=== PATIENT | male | born 1980 | race Two or more races ===

== ENCOUNTER → 2021-03-14 08:40 | Outpatient (REF) | payer MEDICAID, SELFPAY ==
--- NOTE | 2021-03-14 | CA_ITS ---
Transthoracic Echocardiogram Patient (Last, First, Middle): Sanchez Roche E Gender: Male Date of : 1980 Age: 40 Procedure Date: 03/14/2021 Procedure Type: Transthoracic Echocardiogram Location: OP Height: 187.96 cm Weight: 68.49 kg BSA: 1.93 m2 Heart Rate: bpm BP: 124 / 58 mmHg Fire Control Assistant: SAHWN Referring MD: Christian Arevalo MD Symptoms: I42.2 OTHER HYPERTROPHIC CMP, LVH Conclusions: - The left ventricular systolic function is mildly decreased. The visually estimated ejection fraction is between 40-45%. There is evidence of regional wall motion abnormalities. - The entire septum is akinetic. - Normal right ventricular cavity size and systolic function. Findings Left Ventricle Normal left ventricular cavity size. There is normal left ventricular wall thickness. The left ventricular systolic function is mildly decreased. The visually estimated ejection fraction is between 40-45%. There is evidence of regional wall motion abnormalities. There is mild global hypokinesis. Abnormal diastolic function is noted. Spectral Doppler is indicative of a pseudonormal filling pattern. E/E prime ratio is <8, consistent with normal filling pressures. Wall Motion Rest Echo Findings The entire septum is akinetic. Right Ventricle Normal right ventricular cavity size and systolic function. Atria Both atria are normal in size. Aortic Valve Normal aortic valve structure and function. There is no aortic valve stenosis. There is no aortic valve regurgitation. Mitral Valve Normal mitral valve structure and function. There is no mitral valve regurgitation. There is no mitral valve stenosis. Pulmonic Valve Normal pulmonic valve structure and function. There is trace pulmonic valve regurgitation. Tricuspid Valve Normal tricuspid valve structure. There is trace tricuspid valve regurgitation. Normal right atrial pressure. There is no evidence of pulmonary hypertension. Great Vessels All visible segments of the aorta are normal in size. The visualized portions of the pulmonary artery and branches are normal. Venous The inferior vena cava is normal in size and collapses greater than 50% with inspiration. Pericardium/Pleural There is no evidence of pericardial effusion. Prior Study Comparison No prior study available for comparison. Measurements M-Mode Liner Measurements Normals - Women/Men IVSd: 1.19 0.6-0.9/0.6-1.0 cm LVIDd: 5.68 3.9-5.3/4.2-5.9 cm LVIDd Index: 2.94 1.9-3.2 cm/m2 LVIDs: 4.46 2.0-3.8 cm LVPWd: 1.27 0.6-0.9/0.6-1.0 cm LV Mass: 370.35 67-162/88-224g LV Mass Index: 191.89 43-95/49-115 g/m2 M-Mode Volumes LV EDV: 159.00 LV ESV: 90.50 2D Linear Measurements IVSd: 0.63 0.6-0.9/0.6-1.0 cm LVIDd: 5.34 3.9-5.3/4.2-5.9 cm LVIDd Index: 2.77 2.4-3.2/2.2-3.1 cm/m2 LVIDs: 4.48 2.0-3.6 cm LVPWd: 1.22 0.7-1.1 cm LA Diam: 3.40 2.7-3.8/3.0-4.0 cm LAIDs Index: 1.76 1.5-2.3 cm/m2 LV Mass: 227.39 67-162/88-224 g LV Mass Index: 117.82 43-95/49-115 g/m2 LVOT Diam: 2.20 3.0+(-)1.3 cm 2D Systolic Function EF 4C: 42.10 >55% EF 2C: 51.30 >55% EF BiP: 47.90 >55% M-Mode Systolic Function FS: 21.50 27-47/25-43% LVEF: 43.10 >55% Mitral Valve MV Pk E: 0.98 MV PK A: 0.68 MV Decel Time: 139.00 E/A: 1.40 E'Lateral: 14.60 E'Medial: 9.25 E/E' Med: 10.60 E/E' Lat: 6.70 PHT: 41.00 MVA PHT: 5.37 Decel Hanson: 7.04 Aortic Valve AoV Pk Josh: 1.59 AoV Pk Grad: 10.00 LVOT LVOT Pk Josh: 0.85 LVOT Mn Josh: 0.57 LVOT VTI: 0.16 LVOT Pk Grad: 3.00 LVOT Mn Grad: 2.00 LVOT Diam: 2.20 LVOT Area: 3.80 Diastolic Function MV Pk E: 0.98 MV Pk A: 0.68 E/A: 1.40 E'Medial: 9.25 E/E' Med: 10.60 E' Laterial: 14.60 E/E' Lat: 6.70 Right Ventricle TAPSE (mm): 1.98 Tricuspid Valve TR Pk Josh: 220.00 TR Pk Grad: 19.00 RA Press: 3.00 RVSP: 22.00 Great Vessels Aorta Ao Asc: 2.80 2.1-3.4 cm Updated in Other Vendor System with Status of Final Seyd Austin MD electronically signed on 03/14/2021 11:35:10 PM with status of Final
--- NOTE | ~2021-03-14 | XR_ITS ---
EXAMINATION: XR CHEST CLINICAL INFORMATION: Weight loss. Rule out lesion. COMPARISON: None TECHNIQUE: 2 views of the chest were obtained. FINDINGS: No significant abnormality is noted involving the heart, lungs, mediastinum, bony thorax or soft tissues. XR/XR chest 2V IMPRESSION: Unremarkable examination.
[2021-03-14 10:18] LABS: MANUAL DIFF FLAG NO
[2021-03-14 10:22] LABS: Basophils Absolute Auto 0.1 X10*3/uL (0.0-0.2); Eosinophils Absolute Auto 0.8 X10*3/uL (0.0-0.4); Eosinophils Percent Auto 7.7 % (0-4); Hematocrit 39.3 % (42-52); Hemoglobin 12.8 g/dl (14.0-18.0); Imm Gran Abs Auto 0.02 X10*3/uL (0.00-0.03); Imm Gran Pct Auto 0.2 % (0.0-0.4); Lymphocytes Absolute Auto 2.5 X10*3/uL (1.2-4.9); Lymphocytes Percent Auto 23.8 % (20-40); Mean Corpuscular HGB Conc 32.6 g/dl (31.0-36.0); Mean Corpuscular Hemoglobin 28.3 pg (27.0-33.0); Mean Corpuscular Volume 86.8 fL (80-98); Mean Platelet Volume 10.5 fL (9.4-12.4); Monocytes Absolute Auto 1.1 X10*3/uL (0.1-1.2); Monocytes Percent Auto 10.8 % (2-11); Neutrophils Absolute Auto 5.9 X10*3/uL (2.0-8.3); Neutrophils Percent Auto 56.5 % (45-73); Platelet Count 353 X10*3/uL (160-400); Red Blood Count 4.53 X10*6/uL (4.60-5.80); Red Cell Distribution Width 13.9 % (11.0-16.0); White Blood Count 10.5 X10*3/uL (4.8-10.8)
[2021-03-14 11:07] LABS: Alanine Aminotransferase 24 U/L (0-40); Albumin Level 3.8 g/dL (3.5-5.0); Alkaline Phosphatase 85 U/L (39-117); Anion Gap 8 (12-20); Aspartate Amino Transferase 22 U/L (5-37); Bilirubin Total 0.5 mg/dL (0.0-1.0); Blood Urea Nitrogen 19 mg/dL (9-16); C Reactive Protein 0.09 mg/dL (< or = 0.50); Calcium 9.6 mg/dL (8.4-10.2); Carbon Dioxide 30 mmol/L (22-29); Chloride 109 mmol/L (96-108); Estimated Glomerular Filt Rate > 60; Glucose Random 45 mg/dL (60-115); Potassium 4.2 mmol/L (3.3-5.1); Sodium 143 mmol/L (135-145); Total Protein 6.2 g/dL (6.5-8.0)
== END ==
LOC: HO.CARD 08:40
PROVIDERS: PCP Internal Medicine; Visit Provider Internal Medicine
DX: I42.2 Other hypertrophic cardiomyopathy (principal); R63.4 Abnormal weight loss; Z83.3 Family history of diabetes mellitus
CPT/HCPCS: 36415; 71046; 80053; 84443; 85025; 86140; 93306

== ENCOUNTER 2022-08-03 18:50 | Emergency (ER) | payer MEDICAID, SELFPAY ==
--- NOTE | ~2022-08-03 | XR_ITS ---
EXAMINATION: XR CHEST CLINICAL INFORMATION: Shortness of breath. COMPARISON: Chest x-ray 03/14/2021 TECHNIQUE: Frontal view of the chest was obtained. 7:51 PM FINDINGS: No significant abnormality is noted involving the heart, lungs, mediastinum, bony thorax or soft tissues. XR/XR chest 1V IMPRESSION: Unremarkable examination.
[2022-08-03 19:03] VITALS: BP 154/93; PULSE 118; RESP 16; TEMP 36.7; O2SAT 97; BMI 19.2
--- NOTE | 2022-08-03 19:05 | ECG_ITS ---
Test Reason : SOB Blood Pressure : / mmHG Vent. Rate : 103 BPM Atrial Rate : 103 BPM P-R Int : 112 ms QRS Dur : 094 ms QT Int : 406 ms P-R-T Axes : 068 052 197 degrees QTc Int : 531 ms Sinus tachycardia with Premature atrial complexes Left ventricular hypertrophy with repolarization abnormality ( Sokolow-Kennedy , [place] product ) Prolonged QT Abnormal ECG No previous ECGs available Referred By: Romaine Berry Electronically Signed By:YOLETTE IRVING MD
--- NOTE | 2022-08-03 19:08 | ED.GENADULT ---
HPI - General Adult General Chief complaint: Upper Respiratory Symptoms <ILIA Mejias - Last Filed: 08/04/22 11:32> Stated complaint: Sob <ILIA Mejias - Last Filed: 08/04/22 11:32> Time Seen by Provider: 08/03/22 20:28 <ILIA Mejias - Last Filed: 08/04/22 11:32> Source: patient <Carlie Arroyo CNP - Last Filed: 08/04/22 01:12> Mode of arrival: ambulatory <Carlie Arroyo CNP - Last Filed: 08/04/22 01:12> Limitations: no limitations <Carlie Arroyo CNP - Last Filed: 08/04/22 01:12> Related Data Allergies/adverse reactions: Allergies Allergy/AdvReac Type Severity Reaction Status Date / Time No Known Allergies Allergy Unverified 04/04/20 17:11 [No Known Allergies*] <ILIA Mejias - Last Filed: 08/04/22 11:32> [facility] Social History Social History: Social History Alcohol intake: never Smoked in Last 30 Days: Yes Use of substances other than those prescribed or required for medical reasons: Yes Substance Use Type: Marijuana Substance Use Frequency: Occasionally Advance Directives: No Advance Directives Information Provided: No <ILIA Mejias - Last Filed: 08/04/22 11:32> Physical Exam ED Vital Signs: Vital Signs - 24 hr 08/03/22 19:03 08/03/22 20:27 08/03/22 20:42 Temperature 98.1 F 98.3 F Pulse Rate 118 H 102 H Respiratory Rate 16 16 Blood Pressure 154/93 H 123/73 Pulse Oximetry 97 96 95 Oxygen Delivery Method Room Air Room Air Room Air BMI result Body Mass Index 19.2 <ILIA Mjeias - Last Filed: 08/04/22 11:32> Vital Signs - 24 hr 08/03/22 19:03 08/03/22 20:27 08/03/22 20:42 Temperature 98.1 F 98.3 F Pulse Rate 118 H 102 H Respiratory Rate 16 16 Blood Pressure 154/93 H 123/73 Pulse Oximetry 97 96 95 Oxygen Delivery Method Room Air Room Air Room Air BMI result Body Mass Index 19.2 <Carlie Arroyo CNP - Last Filed: 08/04/22 01:12> Course Course Course Narrative: RME: 41 yold male presents to the ED for SOB for one year and lateley not able to stay asleep for long with due to episode of SOB. labs and EKG ordered. Chest xray ordered <ILIA Mejias - Last Filed: 08/04/22 11:32> Reevaluation(s) Reevaluation #1: CBC reveals no leukocytosis, a normocytic anemia which appears consistent with baseline not needing transfusion criteria. CMP revealing ISABELLA with BUN 21, creatinine 1.47. Troponin 66.3, EKG revealing sinus tachycardia with PAC, left ventricular hypertrophy; ventricular rate 103, QT prolongation 531, ST depression in I/ V5/ V6 with J-point elevation in V1-V2. chest x-ray without acute cardiopulmonary process. elevated BNP 788. influenza, RSV, COVID- 19 are negative. Upon attempting re-evaluation, patient not present in room, advised by nursing staff that he had eloped. <Carlie Arroyo CNP - Last Filed: 08/04/22 01:12> Time: 21:55 <Carlie Arroyo CNP - Last Filed: 08/04/22 01:12> Medical Decision Making Lab Data MDM Lab Attestation statement: I reviewed the patient's lab results. <Carlie Arroyo CNP - Last Filed: 08/04/22 01:12> Result Diagrams: 08/03/22 20:36 08/03/22 20:36 <ILIA Mejias - Last Filed: 08/04/22 11:32> Labs: Lab Results 08/03/22 08/03/22 08/03/22 Range/Units 20:36 20:36 20:36 WBC 8.4 (4.8-10.8) X10*3/uL RBC 4.59 L (4.60-5.80) X10*6/uL Hgb 12.7 L (14.0-18.0) g/dl Hct 39.2 L (42.0-52.0) % MCV 85.4 (80.0-98.0) fL MCH 27.7 (27.0-33.0) pg MCHC 32.4 (31.0-36.0) g/dl RDW 14.1 (11.0-16.0) % Plt Count 407 H (160-400) X10*3/uL MPV 9.7 (9.4-12.4) fL Immature Gran % (Auto) 0.2 (0.0-0.4) % Neut % (Auto) 59.9 (45-73) % Lymph % (Auto) 26.7 (20-40) % [place] % (Auto) 9.7 (2-11) % Eos % (Auto) 2.1 (0-4) % Baso % (Auto) 1.4 (0-2) % Lymph # (Auto) 2.2 (1.2-4.9) X10*3/uL [place] # (Auto) 0.8 (0.1-1.2) X10*3/uL Eos # (Auto) 0.2 (0.0-0.4) X10*3/uL Baso # (Auto) 0.1 (0.0-0.2) X10*3/uL Abs Immat Gran (auto) 0.02 (0.00-0.03) X10*3/uL Absolute Neuts (auto) 5.0 (2.0-8.3) x10*3/uL Absolute Nucleated RBC 0.000 (0.0-0.012) X10*3/uL Nucleated RBC % (auto) 0.0 (0.0-0.2) /100WBC PT 12.9 (10.0-13.1) SEC INR 1.1 (0.9-1.1) APTT 36.6 H (26.0-36.4) SEC Sodium 139 (135-145) mmol/L Potassium 4.9 (3.3-5.1) mmol/L Chloride 112 H (96-108) mmol/L Carbon Dioxide 25 (22-29) mmol/L Anion Gap 7 L (12-20) BUN 21 H (9-16) mg/dL Creatinine 1.47 H (0.5-1.4) mg/dL Estim Creat Clear Calc 62.3 Estimated GFR 52 Random Glucose 100 (60-115) mg/dL Calcium 9.1 (8.4-10.2) mg/dL Total Bilirubin 0.8 (0.0-1.0) mg/dL AST 27 (5-37) U/L ALT 19 (0-40) U/L Alkaline Phosphatase 81 (39-117) U/L Troponin I High Sens (<3.5-35.0) ng/L B-Natriuretic Peptide (<100) pg/mL Total Protein 6.0 L (6.5-8.0) g/dL Albumin 3.5 (3.5-5.0) g/dL Influenza Type A (PCR) (Negative) Influenza Type B (PCR) (Negative) RSV RNA Qual (PCR) (Negative) SARS-CoV-2 RNA (RT-PCR) (Negative) 08/03/22 08/03/22 08/03/22 Range/Units 20:36 20:36 20:36 WBC (4.8-10.8) X10*3/uL RBC (4.60-5.80) X10*6/uL Hgb (14.0-18.0) g/dl Hct (42.0-52.0) % MCV (80.0-98.0) fL MCH (27.0-33.0) pg MCHC (31.0-36.0) g/dl RDW (11.0-16.0) % Plt Count (160-400) X10*3/uL MPV (9.4-12.4) fL Immature Gran % (Auto) (0.0-0.4) % Neut % (Auto) (45-73) % Lymph % (Auto) (20-40) % [place] % (Auto) (2-11) % Eos % (Auto) (0-4) % Baso % (Auto) (0-2) % Lymph # (Auto) (1.2-4.9) X10*3/uL [place] # (Auto) (0.1-1.2) X10*3/uL Eos # (Auto) (0.0-0.4) X10*3/uL Baso # (Auto) (0.0-0.2) X10*3/uL Abs Immat Gran (auto) (0.00-0.03) X10*3/uL Absolute Neuts (auto) (2.0-8.3) x10*3/uL Absolute Nucleated RBC (0.0-0.012) X10*3/uL Nucleated RBC % (auto) (0.0-0.2) /100WBC PT (10.0-13.1) SEC INR (0.9-1.1) APTT (26.0-36.4) SEC Sodium (135-145) mmol/L Potassium (3.3-5.1) mmol/L Chloride (96-108) mmol/L Carbon Dioxide (22-29) mmol/L Anion Gap (12-20) BUN (9-16) mg/dL Creatinine (0.5-1.4) mg/dL Estim Creat Clear Calc Estimated GFR Random Glucose (60-115) mg/dL Calcium (8.4-10.2) mg/dL Total Bilirubin (0.0-1.0) mg/dL AST (5-37) U/L ALT (0-40) U/L Alkaline Phosphatase (39-117) U/L Troponin I High Sens 66.3 H (<3.5-35.0) ng/L B-Natriuretic Peptide 788 H (<100) pg/mL Total Protein (6.5-8.0) g/dL Albumin (3.5-5.0) g/dL Influenza Type A (PCR) NEGATIVE (Negative) Influenza Type B (PCR) NEGATIVE (Negative) RSV RNA Qual (PCR) NEGATIVE (Negative) SARS-CoV-2 RNA (RT-PCR) NEGATIVE (Negative) <ILIA Mejias - Last Filed: 08/04/22 11:32> Lab Results 08/03/22 08/03/22 08/03/22 Range/Units 20:36 20:36 20:36 WBC 8.4 (4.8-10.8) X10*3/uL RBC 4.59 L (4.60-5.80) X10*6/uL Hgb 12.7 L (14.0-18.0) g/dl Hct 39.2 L (42.0-52.0) % MCV 85.4 (80.0-98.0) fL MCH 27.7 (27.0-33.0) pg MCHC 32.4 (31.0-36.0) g/dl RDW 14.1 (11.0-16.0) % Plt Count 407 H (160-400) X10*3/uL MPV 9.7 (9.4-12.4) fL Immature Gran % (Auto) 0.2 (0.0-0.4) % Neut % (Auto) 59.9 (45-73) % Lymph % (Auto) 26.7 (20-40) % [place] % (Auto) 9.7 (2-11) % Eos % (Auto) 2.1 (0-4) % Baso % (Auto) 1.4 (0-2) % Lymph # (Auto) 2.2 (1.2-4.9) X10*3/uL [place] # (Auto) 0.8 (0.1-1.2) X10*3/uL Eos # (Auto) 0.2 (0.0-0.4) X10*3/uL Baso # (Auto) 0.1 (0.0-0.2) X10*3/uL Abs Immat Gran (auto) 0.02 (0.00-0.03) X10*3/uL Absolute Neuts (auto) 5.0 (2.0-8.3) x10*3/uL Absolute Nucleated RBC 0.000 (0.0-0.012) X10*3/uL Nucleated RBC % (auto) 0.0 (0.0-0.2) /100WBC PT 12.9 (10.0-13.1) SEC INR 1.1 (0.9-1.1) APTT 36.6 H (26.0-36.4) SEC Sodium 139 (135-145) mmol/L Potassium 4.9 (3.3-5.1) mmol/L Chloride 112 H (96-108) mmol/L Carbon Dioxide 25 (22-29) mmol/L Anion Gap 7 L (12-20) BUN 21 H (9-16) mg/dL Creatinine 1.47 H (0.5-1.4) mg/dL Estim Creat Clear Calc 62.3 Estimated GFR 52 Random Glucose 100 (60-115) mg/dL Calcium 9.1 (8.4-10.2) mg/dL Total Bilirubin 0.8 (0.0-1.0) mg/dL AST 27 (5-37) U/L ALT 19 (0-40) U/L Alkaline Phosphatase 81 (39-117) U/L Troponin I High Sens (<3.5-35.0) ng/L B-Natriuretic Peptide (<100) pg/mL Total Protein 6.0 L (6.5-8.0) g/dL Albumin 3.5 (3.5-5.0) g/dL Influenza Type A (PCR) (Negative) Influenza Type B (PCR) (Negative) RSV RNA Qual (PCR) (Negative) SARS-CoV-2 RNA (RT-PCR) (Negative) 08/03/22 08/03/22 08/03/22 Range/Units 20:36 20:36 20:36 WBC (4.8-10.8) X10*3/uL RBC (4.60-5.80) X10*6/uL Hgb (14.0-18.0) g/dl Hct (42.0-52.0) % MCV (80.0-98.0) fL MCH (27.0-33.0) pg MCHC (31.0-36.0) g/dl RDW (11.0-16.0) % Plt Count (160-400) X10*3/uL MPV (9.4-12.4) fL Immature Gran % (Auto) (0.0-0.4) % Neut % (Auto) (45-73) % Lymph % (Auto) (20-40) % [place] % (Auto) (2-11) % Eos % (Auto) (0-4) % Baso % (Auto) (0-2) % Lymph # (Auto) (1.2-4.9) X10*3/uL [place] # (Auto) (0.1-1.2) X10*3/uL Eos # (Auto) (0.0-0.4) X10*3/uL Baso # (Auto) (0.0-0.2) X10*3/uL Abs Immat Gran (auto) (0.00-0.03) X10*3/uL Absolute Neuts (auto) (2.0-8.3) x10*3/uL Absolute Nucleated RBC (0.0-0.012) X10*3/uL Nucleated RBC % (auto) (0.0-0.2) /100WBC PT (10.0-13.1) SEC INR (0.9-1.1) APTT (26.0-36.4) SEC Sodium (135-145) mmol/L Potassium (3.3-5.1) mmol/L Chloride (96-108) mmol/L Carbon Dioxide (22-29) mmol/L Anion Gap (12-20) BUN (9-16) mg/dL Creatinine (0.5-1.4) mg/dL Estim Creat Clear Calc Estimated GFR Random Glucose (60-115) mg/dL Calcium (8.4-10.2) mg/dL Total Bilirubin (0.0-1.0) mg/dL AST (5-37) U/L ALT (0-40) U/L Alkaline Phosphatase (39-117) U/L Troponin I High Sens 66.3 H (<3.5-35.0) ng/L B-Natriuretic Peptide 788 H (<100) pg/mL Total Protein (6.5-8.0) g/dL Albumin (3.5-5.0) g/dL Influenza Type A (PCR) NEGATIVE (Negative) Influenza Type B (PCR) NEGATIVE (Negative) RSV RNA Qual (PCR) NEGATIVE (Negative) SARS-CoV-2 RNA (RT-PCR) NEGATIVE (Negative) <Carlie Arroyo CNP - Last Filed: 08/04/22 01:12> Independent Interpretation I performed an independent interpretation of an: EKG ( as noted in course) and Plain X-Ray ( have personally interpreted chest x-ray and agree with radiologist impression) <Carlie Arroyo CNP - Last Filed: 08/04/22 01:12> Radiology Impression Discussion of test interpretation with radiology: I have reviewed the radiologist's reading. <Carlie Arroyo CNP - Last Filed: 08/04/22 01:12> Radiologist Impression: XR/XR chest 1V IMPRESSION: Unremarkable examination. <Carlie Arroyo CNP - Last Filed: 08/04/22 01:12> Discharge Plan Discharge Clinical Impression: Shortness of breath <ILIA Mejias - Last Filed: 08/04/22 11:32> Patient Disposition: Elopement <ILIA Mejias - Last Filed: 08/04/22 11:32> Discharge Date/Time: 08/03/22 22:02 <ILIA Mejias - Last Filed: 08/04/22 11:32>
[2022-08-03 20:27] VITALS: BP 123/73; PULSE 102; RESP 16; TEMP 36.8; O2SAT 96
--- NOTE | 2022-08-03 20:40 | PC.NURSE ---
This writter assumed care of this PT at 2030. PT A&Ox4, denies any pain, CP, N/V/D, headache or dizziness. Reports worsening increase SOB since last week, worse when lying down. LS diminished, 96% on RA. VSS. Blood work collected and sent to lab.
[2022-08-03 20:42] VITALS: O2SAT 95
[2022-08-03 20:43] LABS: MANUAL DIFF FLAG NO
[2022-08-03 20:47] LABS: Basophils Absolute Auto 0.1 X10*3/uL (0.0-0.2); Basophils Percent Auto 1.4 % (0-2); Eosinophils Absolute Auto 0.2 X10*3/uL (0.0-0.4); Eosinophils Percent Auto 2.1 % (0-4); Hematocrit 39.2 % (42.0-52.0); Hemoglobin 12.7 g/dl (14.0-18.0); Imm Gran Abs Auto 0.02 X10*3/uL (0.00-0.03); Imm Gran Pct Auto 0.2 % (0.0-0.4); Lymphocytes Absolute Auto 2.2 X10*3/uL (1.2-4.9); Lymphocytes Percent Auto 26.7 % (20-40); Mean Corpuscular HGB Conc 32.4 g/dl (31.0-36.0); Mean Corpuscular Hemoglobin 27.7 pg (27.0-33.0); Mean Corpuscular Volume 85.4 fL (80.0-98.0); Mean Platelet Volume 9.7 fL (9.4-12.4); Monocytes Absolute Auto 0.8 X10*3/uL (0.1-1.2); Monocytes Percent Auto 9.7 % (2-11); Neutrophils Percent Auto 59.9 % (45-73); Platelet Count 407 X10*3/uL (160-400); Red Blood Count 4.59 X10*6/uL (4.60-5.80); Red Cell Distribution Width 14.1 % (11.0-16.0); White Blood Count 8.4 X10*3/uL (4.8-10.8)
[2022-08-03 20:52] LABS: INTERNATIONAL NORM RATIO 1.1 (0.9-1.1); Prothrombin Time 12.9 SEC (10.0-13.1)
[2022-08-03 20:55] LABS: Partial Thromboplastin Time 36.6 SEC (26.0-36.4)
[2022-08-03 21:02] LABS: Alanine Aminotransferase 19 U/L (0-40); Albumin Level 3.5 g/dL (3.5-5.0); Alkaline Phosphatase 81 U/L (39-117); Anion Gap 7 (12-20); Aspartate Amino Transferase 27 U/L (5-37); Bilirubin Total 0.8 mg/dL (0.0-1.0); Blood Urea Nitrogen 21 mg/dL (9-16); Calcium 9.1 mg/dL (8.4-10.2); Carbon Dioxide 25 mmol/L (22-29); Chloride 112 mmol/L (96-108); Creatinine Clr Calc Pharmacy 62.3; Estimated Glomerular Filt Rate 52; Glucose Random 100 mg/dL (60-115); Potassium 4.9 mmol/L (3.3-5.1); Sodium 139 mmol/L (135-145)
[2022-08-03 21:06] LABS: B Type Natriuretic Peptide 788 pg/mL (<100)
[2022-08-03 21:09] LABS: Troponin-I High Sensitivity 66.3 ng/L (<3.5-35.0)
[2022-08-03 21:23] LABS: Influenza A PCR NEGATIVE (Negative); Influenza B PCR NEGATIVE (Negative); Resp Syncy Virus RNA Qual PCR NEGATIVE (Negative); SARS COV2 PCR INHOUSE NEGATIVE (Negative)
--- NOTE | 2022-08-03 22:01 | PC.NURSE ---
PT reported he wants to leave. Provider notified. PT updated to stay till provider went in to see him, PT agreed. Stated he was going to the BR and did not return to room.
== END 2022-08-03 22:02 | disposition left against medical advice (07) ==
PROVIDERS: Physician Assistant; Emergency Provider Emergency Medicine Emergency Medical Services; PCP Internal Medicine
DX: R06.02 Shortness of breath (principal); F12.90 Cannabis use, unspecified, uncomplicated; Z20.822 Contact with and (suspected) exposure to COVID-19; Z20.828 Contact with and (suspected) exposure to other viral communicable diseases
CPT/HCPCS: 0241U; 71045; 80053; 83880; 84484; 85025; 85610; 85730; 93005; 99283; 99285

== ENCOUNTER 2022-08-11 12:40 | Outpatient (REF) | payer MEDICAID, SELFPAY ==
--- NOTE | ~2022-08-11 | XR_ITS ---
EXAMINATION: XR CHEST CLINICAL INFORMATION: Cough, shortness of breath COMPARISON: X-ray 08/03/2022 TECHNIQUE: 2 views of the chest were obtained. FINDINGS: Cardiomediastinal silhouette is within normal limits. There is multifocal airspace opacities in the right upper, mid and lower lung. There is multifocal hazy opacifications in the left mid/upper lung. Findings are new as compared to previous. Central vasculature is stable as compared to previous. No effusion. No pneumothorax. XR/XR chest 2V IMPRESSION: Multifocal airspace opacities in the right lung. Multifocal hazy opacities in left mid/upper lung. Findings are concerning for an infectious or inflammatory process. Recommendation is for a follow-up chest series to be obtained following treatment and/or resolution of symptoms to assure resolution of this appearance.
[2022-08-11 14:15] LABS: Basophils Absolute Auto 0.1 X10*3/uL (0.0-0.2); Basophils Percent Auto 0.8 % (0-2); Eosinophils Absolute Auto 0.2 X10*3/uL (0.0-0.4); Eosinophils Percent Auto 1.4 % (0-4); Imm Gran Abs Auto 0.09 X10*3/uL (0.00-0.03); Imm Gran Pct Auto 0.5 % (0.0-0.4); Lymphocytes Absolute Auto 1.8 X10*3/uL (1.2-4.9); Lymphocytes Percent Auto 10.7 % (20-40); MANUAL DIFF FLAG SCAN; Mean Corpuscular HGB Conc 31.7 g/dl (31.0-36.0); Mean Corpuscular Hemoglobin 27.5 pg (27.0-33.0); Mean Corpuscular Volume 86.9 fL (80.0-98.0); Mean Platelet Volume 10.7 fL (9.4-12.4); Monocytes Absolute Auto 1.8 X10*3/uL (0.1-1.2); Monocytes Percent Auto 10.3 % (2-11); Neutrophils Percent Auto 76.3 % (45-73); Platelet Count 493 X10*3/uL (160-400); Red Blood Count 4.72 X10*6/uL (4.60-5.80); Red Cell Distribution Width 13.9 % (11.0-16.0); SCAN SMEAR FLAG 1
[2022-08-11 14:24] LABS: D Dimer High Sensitivity 441 NG/ML
[2022-08-11 14:39] LABS: Influenza A PCR NEGATIVE (Negative); Influenza B PCR NEGATIVE (Negative); Resp Syncy Virus RNA Qual PCR NEGATIVE (Negative); SARS COV2 PCR INHOUSE NEGATIVE (Negative)
[2022-08-11 14:59] LABS: B Type Natriuretic Peptide 486 pg/mL (<100)
[2022-08-11 16:03] LABS: SLIDE REVIEW VERIFIED
[2022-08-11 16:07] LABS: Alanine Aminotransferase 12 U/L (0-40); Albumin Level 3.5 g/dL (3.5-5.0); Alkaline Phosphatase 93 U/L (39-117); Anion Gap 14 (12-20); Aspartate Amino Transferase 19 U/L (5-37); Bilirubin Total 0.4 mg/dL (0.0-1.0); Blood Urea Nitrogen 18 mg/dL (9-16); C Reactive Protein 1.64 mg/dL (< or = 0.50); Calcium 9.2 mg/dL (8.4-10.2); Carbon Dioxide 24 mmol/L (22-29); Chloride 106 mmol/L (96-108); Estimated Glomerular Filt Rate > 60; Glucose Fasting 94 mg/dL (60-99); Potassium 4.8 mmol/L (3.3-5.1); Sodium 139 mmol/L (135-145); Total Protein 6.2 g/dL (6.5-8.0)
== END 2022-08-11 12:41 | disposition home or self-care (01) ==
LOC: HO.10HDL 12:40
PROVIDERS: Visit Provider Internal Medicine
DX: R53.83 Other fatigue (principal); R06.02 Shortness of breath; R05.9 Cough, unspecified
CPT/HCPCS: 0241U; 71046; 80053; 83880; 84484; 85025; 85379; 86140

== ENCOUNTER 2022-10-13 17:20 | Outpatient (REF) | payer MEDICAID, SELFPAY ==
--- NOTE | ~2022-10-13 | XR_ITS ---
EXAMINATION: XR CHEST CLINICAL INFORMATION: Shortness of breath COMPARISON: Chest radiographs 08/11/2022, 08/03/2022, 03/14/2021 TECHNIQUE: 2 views of the chest were obtained. FINDINGS: There is interval enlarged cardiopericardial silhouette. Cardiothoracic ratio is 18.8/31.0. There are small bibasilar effusions blunting the costophrenic sulci. The pulmonary vascularity is within normal. There is no lobar or segmental airspace consolidation or groundglass opacity or air bronchograms. The hilar and mediastinal contours and bony structures are unremarkable. XR/XR chest 2V IMPRESSION: -Interval enlarged cardiopericardial silhouette. Small bibasilar effusions. -No airspace consolidation or groundglass opacity.
[2022-10-13 17:32] LABS: MANUAL DIFF FLAG NO
[2022-10-13 18:21] LABS: Basophils Absolute Auto 0.1 X10*3/uL (0.0-0.2); Basophils Percent Auto 0.8 % (0-2); Eosinophils Percent Auto 0.1 % (0-4); Hematocrit 48.6 % (42.0-52.0); Hemoglobin 15.5 g/dl (14.0-18.0); Imm Gran Abs Auto 0.04 X10*3/uL (0.00-0.03); Imm Gran Pct Auto 0.4 % (0.0-0.4); Lymphocytes Absolute Auto 2.6 X10*3/uL (1.2-4.9); Lymphocytes Percent Auto 24.3 % (20-40); Mean Corpuscular HGB Conc 31.9 g/dl (31.0-36.0); Mean Corpuscular Hemoglobin 27.7 pg (27.0-33.0); Mean Corpuscular Volume 86.8 fL (80.0-98.0); Mean Platelet Volume 10.4 fL (9.4-12.4); Monocytes Absolute Auto 0.9 X10*3/uL (0.1-1.2); Monocytes Percent Auto 8.4 % (2-11); Platelet Count 444 X10*3/uL (160-400); Red Cell Distribution Width 14.4 % (11.0-16.0); White Blood Count 10.6 X10*3/uL (4.8-10.8)
[2022-10-13 18:57] LABS: Erythrocyte Sedimentation Rate 1 MM/HR (0-15)
[2022-10-13 19:03] LABS: B Type Natriuretic Peptide 3120 pg/mL (<100)
[2022-10-13 19:06] LABS: Alanine Aminotransferase 50 U/L (0-40); Albumin Level 3.2 g/dL (3.5-5.0); Alkaline Phosphatase 89 U/L (39-117); Anion Gap 19 (12-20); Aspartate Amino Transferase 46 U/L (5-37); Bilirubin Total 1.5 mg/dL (0.0-1.0); Blood Urea Nitrogen 27 mg/dL (9-16); Calcium 9.3 mg/dL (8.4-10.2); Carbon Dioxide 21 mmol/L (22-29); Chloride 105 mmol/L (96-108); Estimated Glomerular Filt Rate 45; Glucose Random 146 mg/dL (60-115); Potassium 4.9 mmol/L (3.3-5.1); Sodium 140 mmol/L (135-145); Total Protein 5.5 g/dL (6.5-8.0)
== END 2022-10-13 17:21 | disposition home or self-care (01) ==
LOC: HO.LAB 17:20
PROVIDERS: PCP Internal Medicine; Visit Provider Internal Medicine
DX: R06.02 Shortness of breath (principal); I42.9 Cardiomyopathy, unspecified
CPT/HCPCS: 36415; 71046; 80053; 83880; 85025; 85652

== ENCOUNTER 2022-10-14 13:55 | Inpatient (IN) | payer MEDICAID, SELFPAY ==
--- NOTE | 2022-10-14 13:58 | ECG_ITS ---
Test Reason : cp Blood Pressure : / mmHG Vent. Rate : 111 BPM Atrial Rate : 111 BPM P-R Int : 126 ms QRS Dur : 094 ms QT Int : 372 ms P-R-T Axes : 070 060 049 degrees QTc Int : 505 ms Sinus tachycardia Possible Left atrial enlargement Minimal voltage criteria for LVH, may be normal variant ( [place] product ) Nonspecific T wave abnormality Abnormal ECG When compared with ECG of 03-AUG-2022 20:19, No significant changes seen Referred By: Mona Villanueva Electronically Signed By:FELIX LUIS
--- NOTE | 2022-10-14 13:59 | ED.SOB ---
HPI - SOB/Dyspnea General Stated Complaint: Heart issue told to come in by PCP Related Data Allergies Allergy/AdvReac Type Severity Reaction Status Date / Time No Known Allergies Allergy Verified 10/14/22 14:00 [No Known Allergies*] [facility] Social History Social History Alcohol intake: never Substance Use Type: Marijuana Course Course Course Narrative: RME - 42 yo male currently on no medications with history of CHF (EF 40-45% in 2020) who presents to the ER from home for abnormal labs. Dr. Lux did basic labs last night that showed a BNP 3120. Patient reports PND, orthopnea and MCWILLIAMS, worsening over the last 2 months. Also had increased abd distention and fullness yesterday. Tachycardic 117 in triage. dyspneic with minimal exertion. No chest pain. Plan: repeat labs, EKG, CXR. will require admission
[2022-10-14 14:00] VITALS: BP 119/78; PULSE 116; RESP 20; TEMP 36.6; O2SAT 99; BMI 19.2
[2022-10-14 14:26] LABS: MANUAL DIFF FLAG NO
[2022-10-14 14:29] LABS: Basophils Absolute Auto 0.1 X10*3/uL (0.0-0.2); Basophils Percent Auto 1.1 % (0-2); Eosinophils Percent Auto 0.1 % (0-4); Hematocrit 48.5 % (42.0-52.0); Hemoglobin 16.1 g/dl (14.0-18.0); Imm Gran Abs Auto 0.04 X10*3/uL (0.00-0.03); Imm Gran Pct Auto 0.4 % (0.0-0.4); Lymphocytes Absolute Auto 2.3 X10*3/uL (1.2-4.9); Lymphocytes Percent Auto 23.7 % (20-40); Mean Corpuscular HGB Conc 33.2 g/dl (31.0-36.0); Mean Corpuscular Hemoglobin 27.6 pg (27.0-33.0); Mean Platelet Volume 9.9 fL (9.4-12.4); Monocytes Absolute Auto 0.9 X10*3/uL (0.1-1.2); Monocytes Percent Auto 9.5 % (2-11); Neutrophils Absolute Auto 6.4 x10*3/uL (2.0-8.3); Neutrophils Percent Auto 65.2 % (45-73); Platelet Count 418 X10*3/uL (160-400); Red Blood Count 5.84 X10*6/uL (4.60-5.80); Red Cell Distribution Width 14.4 % (11.0-16.0); White Blood Count 9.8 X10*3/uL (4.8-10.8)
[2022-10-14 14:41] LABS: COVID-19 Test Negative (Negative); IDNOW Serial# BCCEAD1C; Lactic Acid 1.4 mmol/L (0.5-2.0)
[2022-10-14 14:46] LABS: Alanine Aminotransferase 118 U/L (0-40); Albumin Level 3.3 g/dL (3.5-5.0); Alkaline Phosphatase 102 U/L (39-117); Anion Gap 15 (12-20); Aspartate Amino Transferase 130 U/L (5-37); Bilirubin Direct 0.6 mg/dL (0.0-0.5); Bilirubin Total 2.2 mg/dL (0.0-1.0); Blood Urea Nitrogen 27 mg/dL (9-16); Calcium 9.3 mg/dL (8.4-10.2); Carbon Dioxide 23 mmol/L (22-29); Chloride 106 mmol/L (96-108); Creatinine Clr Calc Pharmacy 53.9; Estimated Glomerular Filt Rate 45; Glucose Random 114 mg/dL (60-115); Magnesium 1.9 mg/dL (1.6-2.6); Sodium 139 mmol/L (135-145); Total Protein 5.7 g/dL (6.5-8.0)
[2022-10-14 14:50] LABS: B Type Natriuretic Peptide 3247 pg/mL (<100)
--- NOTE | 2022-10-14 14:50 | CA_ITS ---
Transthoracic Echocardiogram Patient (Last, First, Middle): Sanchez Roche E Gender: Male Date of : 1980 Age: 42 Procedure Date: 10/14/2022 Procedure Type: Transthoracic Echocardiogram Location: ER Height: 187.96 cm Weight: 68.04 kg BSA: 1.92 m2 Heart Rate: 113 bpm BP: 134 / 104 mmHg [employer] Supervisor: SB Referring MD: Jasper Mariano MD Symptoms: chf vs pericardial effusion Study Quality: Adequate ECG Rhythm: Tachycardia Conclusions: - The left ventricular systolic function is severely decreased. The visually estimated ejection fraction is <10%. - There is severely decreased right ventricular systolic function. - There is moderate mitral valve regurgitation. - There is mild to moderate tricuspid valve regurgitation. - Moderate pulmonary hypertension is present. Findings Left Ventricle Moderately increased left ventricular cavity size. There is mildly increased left ventricular wall thickness. The left ventricular systolic function is severely decreased. The visually estimated ejection fraction is <10%. There is severe global hypokinesis. Evidence suggests grade III (severe) diastolic dysfunction. Right Ventricle Moderately increased right ventricular cavity size. There is severely decreased right ventricular systolic function. Atria The left atrium is severely dilated. The right atrium is moderately dilated. Aortic Valve The aortic valve was not well visualized. There is no aortic valve stenosis. There is no aortic valve regurgitation. Mitral Valve The mitral valve appears normal. There is moderate mitral valve regurgitation. There is no mitral valve stenosis. Pulmonic Valve The pulmonic valve is likely normal. Tricuspid Valve Normal tricuspid valve structure. There is mild to moderate tricuspid valve regurgitation. The right ventricular systolic pressure is 55 mmHg. Moderate pulmonary hypertension is present. Great Vessels The asc aorta is normal in size. Venous The inferior vena cava is dilated and does not collapse with inspiration. Pericardium/Pleural There is a small circumferential pericardial effusion. Prior Study Comparison Changes noted compared to prior study dated: 03/14/2021. LVEF is worse. Measurements 2D Linear Measurements IVSd: 0.72 0.6-0.9/0.6-1.0 cm LVIDd: 6.22 3.9-5.3/4.2-5.9 cm LVIDd Index: 3.24 2.4-3.2/2.2-3.1 cm/m2 LVIDs: 5.55 2.0-3.6 cm LVPWd: 1.19 0.7-1.1 cm LA Diam: 4.20 2.7-3.8/3.0-4.0 cm LAIDs Index: 2.19 1.5-2.3 cm/m2 LV Mass: 308.59 67-162/88-224 g LV Mass Index: 160.73 43-95/49-115 g/m2 LVOT Diam: 2.10 3.0+(-)1.3 cm 2D Systolic Function EF 4C: 1.99 >55% EF 2C: 8.76 >55% EF BiP: 5.24 >55% Mitral Valve MV Pk E: 1.11 MV Decel Time: 137.00 E'Lateral: 3.75 E'Medial: 2.56 E/E' Med: 43.40 E/E' Lat: 29.60 PHT: 49.00 MVA PHT: 4.49 Decel Noble: 6.60 MR Vol - PW Dopp: 11.44 MR VTI: 1.43 MR ERO: 8.00 MR Alias Josh: 0.39 MR RAD: 0.40 Aortic Valve AoV Pk Josh: 0.67 AoV Pk Grad: 2.00 IRINA: 3.09 LVOT LVOT Pk Josh: 0.48 LVOT Mn Josh: 0.34 LVOT VTI: 0.06 LVOT Pk Grad: 1.00 LVOT Mn Grad: 1.00 LVOT Diam: 2.10 LVOT Area: 3.46 Diastolic Function MV Pk E: 1.11 E'Medial: 2.56 E/E' Med: 43.40 E' Laterial: 3.75 E/E' Lat: 29.60 Right Ventricle TAPSE (mm): 7.80 TVS' Johs: 6.50 Tricuspid Valve TR Pk Josh: 3.17 TR Pk Grad: 40.00 RA Press: 15.00 RVSP: 55.00 Great Vessels Aorta Sinus of Valsalva: 3.40 2.0-3.5 cm Ao Asc: 2.90 2.1-3.4 cm Pulmonary Valve PV Pk Josh: 0.40 Peak PV Grad: 1.00 Updated in Other Vendor System with Status of Final Shar Elizabeth MD electronically signed on 10/14/2022 4:04:31 PM with status of Final
[2022-10-14 14:53] LABS: Troponin-I High Sensitivity 66.5 ng/L (<3.5-35.0)
--- NOTE | 2022-10-14 14:54 | ED_ITS ---
HPI - General Adult General Chief complaint: General Medical Stated complaint: Heart issue told to come in by PCP Time Seen by Provider: 10/14/22 14:37 Source: patient and old records reviewed History of Present Illness HPI narrative: Patient with a history of hypertensive cardiomyopathy with an ejection reason in , presents with worsening dyspnea. He states over the past month and a half he has been having worsening orthopnea. He has been sleeping upright a today went to see his PCP who ordered and BNP was over 3000. His PCP recommended he come to the emergency department. He denies any chest pain during any of this. No nausea vomiting. Seen in July for a respite syndrome and was diagnosed with pneumonia. He states he was treated with medication and improved he then developed the above- mentioned symptoms. He states he has had bilateral pedal edema for the last several months but that has suddenly improved over the past 2 days without intervention. He does not take any medications. 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 Related Data Home Medications Medication Instructions Recorded Confirmed No Known Home Meds 10/14/22 10/14/22 Allergies Allergy/AdvReac Type Severity Reaction Status Date / Time No Known Allergies Allergy Verified 10/14/22 14:00 [No Known Allergies*] Review of Systems Constitutional: Comments: No fevers or chills Cardiovascular: Comments: No chest pain or palpitations. Positive orthopnea and PND Respiratory: Comments: Dyspnea as mentioned. No cough or sputum Gastrointestinal: Comments: No abdominal symptoms Musculoskeletal: Comments: Bilateral pedal edema as mentioned, recently improved spontaneously Integumentary/Breasts: Comments: No rash PMFSH Social History Social History Alcohol intake: never Smoked in Last 30 Days: No Use of substances other than those prescribed or required for medical reasons: No Substance Use Type: Marijuana Advance Directives: No Advance Directives Information Provided: No Physical Exam ED Vital Signs: Vital Signs - 24 hr 10/14/22 14:00 10/14/22 14:59 Temperature 98 F Pulse Rate 116 H 113 H Respiratory Rate 20 18 Blood Pressure 119/78 134/104 H Pulse Oximetry 99 96 Oxygen Delivery Method Room Air Room Air BMI result Body Mass Index 19.2 Const Other: Awake and alert. Moderately tachypneic. Tachycardic to 116. Neck Other: Positive JVD Resp Other: Bibasilar rales. Scant expiratory wheeze Cardio Other: Tachycardic without murmurs rubs or gallops GI Other: Soft nontender nondistended Skin Other: Warm and dry without rash Extrem Other: No pedal edema. No calf tenderness Medical Decision Making Medical Decision Making MDM Narrative: Patient with symptoms concerning for worsening congestive heart failure. Ischemic versus hypertensive in origin versus other cause. Review of x-ray a large cardiac silhouette, new since x-ray in July of this year. No brad pulmonary edema however BNP is 3100. Will treat with IV. Start with 20 mg as patient is Lasix naive. Echocardiogram ordered with concern for pericardial effusion 15:35. Bedside ultrasound by myself shows no evidence of pericardial effusion but does show global hypokinesis. She official echocardiogram being performed right now. Consulted Cardiology he was Rommel brown. Case discussed with Sharda Manley and agree with plan. Aspirin, Lasix, add on urine tox. Final impression, new onset cardio myopathy with congestive heart failure. Lab Data 10/14/22 14:18 10/14/22 14:18 Labs: Lab Results 10/14/22 10/14/22 10/14/22 Range/Units 14:18 14:18 14:18 WBC 9.8 (4.8-10.8) X10*3/uL RBC 5.84 H (4.60-5.80) X10*6/uL Hgb 16.1 (14.0-18.0) g/dl Hct 48.5 (42.0-52.0) % MCV 83.0 (80.0-98.0) fL MCH 27.6 (27.0-33.0) pg MCHC 33.2 (31.0-36.0) g/dl RDW 14.4 (11.0-16.0) % Plt Count 418 H (160-400) X10*3/uL MPV 9.9 (9.4-12.4) fL Immature Gran % (Auto) 0.4 (0.0-0.4) % Neut % (Auto) 65.2 (45-73) % Lymph % (Auto) 23.7 (20-40) % [place] % (Auto) 9.5 (2-11) % Eos % (Auto) 0.1 (0-4) % Baso % (Auto) 1.1 (0-2) % Lymph # (Auto) 2.3 (1.2-4.9) X10*3/uL [place] # (Auto) 0.9 (0.1-1.2) X10*3/uL Eos # (Auto) 0.0 (0.0-0.4) X10*3/uL Baso # (Auto) 0.1 (0.0-0.2) X10*3/uL Abs Immat Gran (auto) 0.04 H (0.00-0.03) X10*3/uL Absolute Neuts (auto) 6.4 (2.0-8.3) x10*3/uL Absolute Nucleated RBC 0.000 (0.0-0.012) X10*3/uL Nucleated RBC % (auto) 0.0 (0.0-0.2) /100WBC Sodium 139 (135-145) mmol/L Potassium 5.0 (3.3-5.1) mmol/L Chloride 106 (96-108) mmol/L Carbon Dioxide 23 (22-29) mmol/L Anion Gap 15 (12-20) BUN 27 H (9-16) mg/dL Creatinine 1.68 H (0.5-1.4) mg/dL Estim Creat Clear Calc 53.9 Estimated GFR 45 Random Glucose 114 (60-115) mg/dL Lactic Acid (0.5-2.0) mmol/L Calcium 9.3 (8.4-10.2) mg/dL Magnesium 1.9 (1.6-2.6) mg/dL Total Bilirubin 2.2 H (0.0-1.0) mg/dL Direct Bilirubin 0.6 H (0.0-0.5) mg/dL AST 130 H (5-37) U/L ALT 118 H (0-40) U/L Alkaline Phosphatase 102 (39-117) U/L Troponin I High Sens 66.5 H D (<3.5-35.0) ng/L B-Natriuretic Peptide (<100) pg/mL Total Protein 5.7 L (6.5-8.0) g/dL Albumin 3.3 L (3.5-5.0) g/dL COVID-19 ([facility]) (Negative) COVID-19 Clin Com 10/14/22 10/14/22 10/14/22 Range/Units 14:18 14:18 14:18 WBC (4.8-10.8) X10*3/uL RBC (4.60-5.80) X10*6/uL Hgb (14.0-18.0) g/dl Hct (42.0-52.0) % MCV (80.0-98.0) fL MCH (27.0-33.0) pg MCHC (31.0-36.0) g/dl RDW (11.0-16.0) % Plt Count (160-400) X10*3/uL MPV (9.4-12.4) fL Immature Gran % (Auto) (0.0-0.4) % Neut % (Auto) (45-73) % Lymph % (Auto) (20-40) % [place] % (Auto) (2-11) % Eos % (Auto) (0-4) % Baso % (Auto) (0-2) % Lymph # (Auto) (1.2-4.9) X10*3/uL [place] # (Auto) (0.1-1.2) X10*3/uL Eos # (Auto) (0.0-0.4) X10*3/uL Baso # (Auto) (0.0-0.2) X10*3/uL Abs Immat Gran (auto) (0.00-0.03) X10*3/uL Absolute Neuts (auto) (2.0-8.3) x10*3/uL Absolute Nucleated RBC (0.0-0.012) X10*3/uL Nucleated RBC % (auto) (0.0-0.2) /100WBC Sodium (135-145) mmol/L Potassium (3.3-5.1) mmol/L Chloride (96-108) mmol/L Carbon Dioxide (22-29) mmol/L Anion Gap (12-20) BUN (9-16) mg/dL Creatinine (0.5-1.4) mg/dL Estim Creat Clear Calc Estimated GFR Random Glucose (60-115) mg/dL Lactic Acid 1.4 (0.5-2.0) mmol/L Calcium (8.4-10.2) mg/dL Magnesium (1.6-2.6) mg/dL Total Bilirubin (0.0-1.0) mg/dL Direct Bilirubin (0.0-0.5) mg/dL AST (5-37) U/L ALT (0-40) U/L Alkaline Phosphatase (39-117) U/L Troponin I High Sens (<3.5-35.0) ng/L B-Natriuretic Peptide 3247 H (<100) pg/mL Total Protein (6.5-8.0) g/dL Albumin (3.5-5.0) g/dL COVID-19 ([facility]) Negative (Negative) COVID-19 Clin Com See Note Critical Care Time Critical Care Time Critical Care Time: Yes Total Critical Care Time: 90 Attestation: Critical care time outside of separately billable procedures. Critical care secondary to severe cardiomyopathy with congestive heart failure requiring urgent consultation Discharge Plan Discharge Patient Disposition: Admitted As Inpatient Prescriptions: No Action No Known Home Meds
[2022-10-14 14:59] VITALS: BP 134/104; PULSE 113; RESP 18; O2SAT 96
--- NOTE | 2022-10-14 15:48 | PM.IMHP ---
History of Present Illness Date of Service: 10/14/22 Chief Complaint: SOB 42-year-old man presenting with worsening shortness of breath over the last week, present for over 6 weeks. He presented to the ER initially on 08/03/2022 with shortness of breath and insomnia. His troponin at that time was 66.3, EKG showing sinus tachycardia with PACs, left ventricular hypertrophy and ST-T changes. His flu RSV and COVID were negative. Apparently when the provider went back to re-evaluate the patient he had eloped from the ED and his treatment was not continued. His chest x-ray from July 2022 showed multifocal airspace opacities in the right lung with hazy opacities in the left mid to upper lung concerning for infectious versus inflammatory process however did not show enlargement of his heart. It appears that he was placed on Ceftin by his primary care provider and no other workup was completed. He reports over the last 6 weeks he has had worsening shortness of breath ambulating and at rest, PND and orthopnea noted. He reports that he usually takes care of his grandson and he is finding that he is even unable to walk 10 ft. This is been getting worse over the last 6 weeks and even worse over the last week. Prior to July he stated that he had no other health problems and has been out of work [place] [facility] [place] and again taking care of his grandson. He denied chest pain, fever, chills, nausea, vomiting, diarrhea, recent travel, sick contacts, alcohol abuse, drug abuse, smoking. Blood pressure was noted to be elevated with highest reading of 134/104, tachycardia noted, creatinine 1.68, bilirubin 2.2, AST 130, ALT 180, troponin 66.5, COVID negative. He was given a dose of IV Lasix, aspirin. He will be admitted for further management and treatment of acute cardiomyopathy. Review of Systems Review of Systems: Denies any recent fever chills or decrease in appetite, reported 10-20lb weight loss over the last 6 weeks respiratory See HPI cardiovascular See HPI gastrointestinal denies any dysphagia abdominal pain nausea vomiting or diarrhea genitourinary denies any dysuria frequency or hematuria musculoskeletal denies any joint pain or swelling neuropsych denies any weakness or seizures all other systems reviewed are negative [facility] Medical History (Updated 10/15/22 @ 10:52 by Indra Umanzor MD) No pertinent past medical history Family History (Updated 10/15/22 @ 09:11 by Shar Elizabeth MD) Father Diabetes Mother Diabetes Surgical History No pertinent past surgical history Social History Household Members: Significant Other Housing: Apartment Do you presently have visiting nurse or other home services: No Alcohol intake: never Patient Tobacco Use Status: Never used Tobacco Smoked in Last 30 Days: No Use of substances other than those prescribed or required for medical reasons: No Substance Use Type: Marijuana Currently Displaying Signs/Symptoms of Drug Intoxication Withdrawal: No Have you been hit, kicked, punched, or otherwise hurt by someone within the past year? If so, by whom?: No Do you feel safe in your current relationship?: Yes Is there a partner from a previous relationship who is making you feel unsafe now?: No Are you made to feel afraid or neglected: No Rast[facility] Healthcare Practices: none Advance Directives: No Advance Directives Information Provided: No Do you have thoughts of harming others: None Do you have a plan to hurt others: No Plan Recently lost weight without trying: Yes How much weight loss: 2-13 pounds Eating poorly because of decreased appetite: Yes Nutrition screen score: 4 Nutrition Risks: No Nutritional Risk Poor oral hygiene: No service: No Current occupational status: unemployed Meds Allergies Allergy/AdvReac Type Severity Reaction Status Date / Time No Known Allergies Allergy Verified 10/14/22 14:00 [No Known Allergies*] Active Medications: Current Medications Pharmacy Consult (Consult Rx Perform Med Rec) 1 each MISCELLANE ONCE PRN PRN Reason: Consult order Pharmacy Consult (Consult Rx Perform Med Rec) 1 each MISCELLANE ONCE PRN PRN Reason: Consult order Physical Exam Vital Signs and Narrative: Vital Signs: Last Vital Signs Temp 98 F 10/14/22 14:00 Pulse 113 H 10/14/22 14:59 Resp 18 10/14/22 14:59 BP 134/104 H 10/14/22 14:59 Pulse Ox 96 10/14/22 14:59 O2 Del Method Room Air 10/14/22 14:59 BMI result Body Mass Index 19.2 Appearing in no acute distress head is normocephalic atraumatic eyes pupils are PERRLA sclera is anicteric mouth throat mucous membranes are intact and moist lung sounds dim heart regular rate rhythm, clear S1, S2, JVD, no edema positive bowel sounds, abdomen is soft, nontender neuro patient is alert x3, no focal deficits Results Labs 10/14/22 14:18 10/14/22 14:18 Labs: Laboratory Results - last 24 hr 10/14/22 10/14/22 10/14/22 14:18 14:18 14:18 MCV 83.0 MCH 27.6 MCHC 33.2 RDW 14.4 Plt Count 418 H MPV 9.9 Immature Gran % (Auto) 0.4 Neut % (Auto) 65.2 Lymph % (Auto) 23.7 [place] % (Auto) 9.5 Eos % (Auto) 0.1 Baso % (Auto) 1.1 Lymph # (Auto) 2.3 [place] # (Auto) 0.9 Eos # (Auto) 0.0 Baso # (Auto) 0.1 Abs Immat Gran (auto) 0.04 H Absolute Neuts (auto) 6.4 Absolute Nucleated RBC 0.000 Nucleated RBC % (auto) 0.0 Anion Gap 15 Estim Creat Clear Calc 53.9 Estimated GFR 45 Random Glucose 114 Lactic Acid Calcium 9.3 Magnesium 1.9 Total Bilirubin 2.2 H Direct Bilirubin 0.6 H AST 130 H ALT 118 H Alkaline Phosphatase 102 Troponin I High Sens 66.5 H D B-Natriuretic Peptide Total Protein 5.7 L Albumin 3.3 L COVID-19 ([facility]) COVID-19 Clin Com 10/14/22 10/14/22 10/14/22 14:18 14:18 14:18 MCV MCH MCHC RDW Plt Count MPV Immature Gran % (Auto) Neut % (Auto) Lymph % (Auto) [place] % (Auto) Eos % (Auto) Baso % (Auto) Lymph # (Auto) [place] # (Auto) Eos # (Auto) Baso # (Auto) Abs Immat Gran (auto) Absolute Neuts (auto) Absolute Nucleated RBC Nucleated RBC % (auto) Anion Gap Estim Creat Clear Calc Estimated GFR Random Glucose Lactic Acid 1.4 Calcium Magnesium Total Bilirubin Direct Bilirubin AST ALT Alkaline Phosphatase Troponin I High Sens B-Natriuretic Peptide 3247 H Total Protein Albumin COVID-19 ([facility]) Negative COVID-19 Clin Com See Note Assessment and Plan (1) Congestive heart failure: Status: Acute Plan 42 year old man admitted with dyspnea likely related to cardiomyopathy worsening over the last 6 weeks acute HFrEF with Cardiomyopathy, unspecified no history of either in the past PND, orthopnea, sob all present Echocardiogram with EF less than 10, severely decreased right ventricular systolic function, moderate pulmonary hypertension, severe global hypokinesis with grade 3 diastolic dysfunction BNP 3247 TROP 66.5 NO hypoxia noted Lasix IV 40BID, ortega for fluid management Entresto cardiology following monitor on telemetry daily weights, intake and output CKD, likely, unspecified no hx of kidney disease likely worsening renal function from heart failure nephrology consult Transaminitis likely from CHF Diurese Elevated blood pressure readings no hx of HTN lasix, entresto Protein calorie malnutrition. BMI 19.3 Poor nutrition and poor appetite add ensure to diet DVT prophylaxis with heparin full code Patient required 2 inpatient midnights for the treatment of CHF with cardiomyopathy, new onset requiring IV diuretics, close cardiac monitoring Time Spent With Patient Time: Total time managing care of this patient today ____ minutes. Quality Stroke Does the patient have a stroke diagnosis?: No VTE Prior VTE?: No VTE Risk Level:: Medical - moderate - high VTE Device Contraindication: Treatment Not Indicated VTE Drug Contraindication: N/A - Med Ordered
[2022-10-14] MEDS: Aspirin 81 MG TAB.CHEW 324 MG PO (16:07)
[2022-10-14] MEDS: Furosemide 20 MG/2 ML VIAL IVPUSH (16:07)
[2022-10-14 16:15] VITALS: BP 148/108; PULSE 112; RESP 16; O2SAT 99
--- NOTE | 2022-10-14 16:18 | PC.NURSE ---
pt AOx3, exp persistent shortness of breath. reports no pain. Lung sounds clear bilaterally. Bedside echo complete. IV inserted. Labs and EKG complete while pt in waiting room, Troponin drawn and sent by tech. aspirin and lasix given per SEP. Pharmacy called for ordered entresto. Pt tachy on monitor. BP elevated, current BP 148/107. Pt diastolic BP consistently high. will continue to monitor
[2022-10-14 16:31] LABS: Troponin-I High Sensitivity 60.6 ng/L (<3.5-35.0)
[2022-10-14 17:11] VITALS: BP 147/95; PULSE 113; RESP 20; TEMP 36.6; O2SAT 97
[2022-10-14] MEDS: Sacubitril/Valsartan 24/26 1 TAB TABLET PO ×2 (17:25→21:35)
[2022-10-14] MEDS: Furosemide 40 MG/4 ML VIAL IVPUSH (17:25)
[2022-10-14] MEDS: Heparin Sodium,Porcine 5,000 UNIT/ML VIAL 5000 UNIT SUBCUT (17:25)
[2022-10-14 17:31] VITALS: BMI 19.2
[2022-10-14 20:00] VITALS: BP 114/71; PULSE 112; RESP 18; TEMP 36.3; O2SAT 96
[2022-10-14] MEDS: 0.9 % Sodium Chloride Flush 3 ML SYRINGE IVFLUSH (21:38)
[2022-10-14 22:19] LABS: Appearance Urine Clear; Color Urine Yellow; Glucose Urine UA Negative (Negative); Leukocyte Esterase Urine Negative (Negative); Nitrite Urine Negative (Negative); Specific Gravity - Urine <= 1.005 (1.005-1.025); UMIC TRIGGER UACC YES; Urine Blood Trace (Negative); Urine Ketones Negative (Negative); Urine Protein Negative (Neg-Trace)
[2022-10-14 22:21] LABS: Bacteria Urine None Seen (None Seen); Hyaline Casts Urine 0-2 /LPF (0-2); Squamous Epithelial Cell Urine 0-2 /HPF (0-2); WBC Urine 0-5 /HPF (0-5)
[2022-10-14 22:31] LABS: Amphetamine Screen Urine Not Detected (Not Detect); Barbiturates, Urine Not Detected (Not Detect); Benzodiazepines Screen Urine Not Detected (Not Detect); Cannabinoid Screen Urine Not Detected (Not Detect); Cocaine Screen Urine POSITIVE (Not Detect); Fentanyl, urine POSITIVE (Not Detect); Opiate Screen Urine Not Detected (Not Detect); Phencyclidine Screen Urine Not Detected (Not Detect)
[2022-10-15] VITALS: BP 99/60; PULSE 104; RESP 18; TEMP 36.3; O2SAT 98
[2022-10-15 04:00] VITALS: BP 101/66; PULSE 110; RESP 20; TEMP 36.7; O2SAT 96
[2022-10-15] MEDS: Heparin Sodium,Porcine 5,000 UNIT/ML VIAL 5000 UNIT SUBCUT (05:14)
[2022-10-15 06:17] LABS: Hematocrit 49.8 % (42.0-52.0); Hemoglobin 16.5 g/dl (14.0-18.0); Mean Corpuscular HGB Conc 33.1 g/dl (31.0-36.0); Mean Corpuscular Hemoglobin 27.1 pg (27.0-33.0); Mean Corpuscular Volume 81.9 fL (80.0-98.0); Platelet Count 406 X10*3/uL (160-400); Red Blood Count 6.08 X10*6/uL (4.60-5.80); Red Cell Distribution Width 13.9 % (11.0-16.0); White Blood Count 11.3 X10*3/uL (4.8-10.8)
[2022-10-15 06:32] LABS: Alanine Aminotransferase 91 U/L (0-40); Albumin Level 2.7 g/dL (3.5-5.0); Alkaline Phosphatase 88 U/L (39-117); Anion Gap 14 (12-20); Aspartate Amino Transferase 75 U/L (5-37); Bilirubin Direct 0.5 mg/dL (0.0-0.5); Bilirubin Total 2.1 mg/dL (0.0-1.0); Blood Urea Nitrogen 26 mg/dL (9-16); Calcium 8.6 mg/dL (8.4-10.2); Carbon Dioxide 27 mmol/L (22-29); Chloride 104 mmol/L (96-108); Estimated Glomerular Filt Rate 49; Glucose Random 112 mg/dL (60-115); Potassium 4.1 mmol/L (3.3-5.1); Sodium 141 mmol/L (135-145)
[2022-10-15 06:35] LABS: B Type Natriuretic Peptide 2968 pg/mL (<100)
[2022-10-15 07:25] VITALS: BP 124/89; PULSE 108; RESP 16; TEMP 37; O2SAT 96
[2022-10-15] MEDS: 0.9 % Sodium Chloride Flush 3 ML SYRINGE IVFLUSH (08:07)
[2022-10-15] MEDS: Sacubitril/Valsartan 24/26 1 TAB TABLET PO (08:08)
[2022-10-15] MEDS: Aspirin 81 MG TAB.CHEW PO (08:08)
[2022-10-15] MEDS: Furosemide 40 MG/4 ML VIAL IVPUSH (08:08)
--- NOTE | 2022-10-15 08:46 | MHC.CM.PN ---
CM met with Patient and his at bedside. Patient lives in an apartment with his and 2 adult Daughters and he required no services nor DME [employer]EL [employer]. Home self care vs transfer to [facility] is the tentative plan and CM has initiated and will follow for dc planning. Patient has received Pfizer/Covid vax x4 and his PCP is Dr. Christian Arevalo.
--- NOTE | 2022-10-15 09:09 | P.CONCA_ITS ---
History of Present Illness History of Present Illness Date of Service: 10/15/22 Chief complaint: CMP,CHF Narrative: This is a cardiology consultation regarding acute heart failure. Patient states that for the last few weeks he has not been able to breathe well. Even with minimal distance, he gets short of breath. Orthopnea/PND. No significant leg swelling. No clear anginal symptoms. No history of any coronary disease myocardial infarction or cardiomyopathy. Previously, he was denying drug use but he states that he does use heroin but not cocaine. Not clear how reliable he is. Denies any family history of cardiomyopathy. Review of Systems Review of Systems: Yes all other systems are reviewed and are negative Constitutional: Constitutional: Reports as per HPI and Reports no additional constitutional complaints Eyes: Eyes: Reports as per HPI and Denies no additional eye complaints ENT: Denies system reviewed and no additional complaints, except as documented and Reports as per HPI Cardiovascular: Cardiovascular: Reports as per HPI, Reports no additional cardiovascular complaints, Denies acrocyanosis, Denies cool extremities, Denies chest pain, Denies leg edema, Denies lightheadedness, Denies palpitations and Reports dyspnea Respiratory: Respiratory: Reports as per HPI, Denies no additional respiratory complaints and Reports dyspnea Gastrointestinal: Gastrointestinal: Reports as per HPI and Denies no additional gastrointestinal complaints Genitourinary: Genitourinary: Reports no additional male genitourinary complaints and Reports as per HPI Musculoskeletal: Musculoskeletal: Reports no additional musculoskeletal complaints and Reports as per HPI Integumentary/Breasts: Skin/Breast: Reports system reviewed and no additional complaints, except as docu Neurologic: Reports system reviewed and no additional complaints, except as documented and Reports as per HPI Psychiatric: Psychiatric: Reports no additional psychiatric complaints and Reports as per HPI Endocrine: Endocrine: Reports no additional endocrine complaints, Reports as per HPI and Denies palpitations Hematologic/Lymphatic: Hematologic/Lymphatic: Reports no additional hematologic/lymphatic complaints and Reports as per HPI Allergic/Immunologic: Allergic/Immunologic: Reports no additional allergic/immunologic complaints and Reports as per HPI PMF Past Medical History Medical History (Updated 10/15/22 @ 09:13 by Shar Elizabeth MD) No pertinent past medical history Family History Family History (Updated 10/15/22 @ 09:11 by Shar Elizabeth MD) Father Diabetes Mother Diabetes Surgical History Surgical History No pertinent past surgical history Social History Social History Household Members: Significant Other Housing: Apartment Do you presently have visiting nurse or other home services: No Alcohol intake: never Patient Tobacco Use Status: Never used Tobacco Smoked in Last 30 Days: No Use of substances other than those prescribed or required for medical reasons: No Substance Use Type: Marijuana Currently Displaying Signs/Symptoms of Drug Intoxication Withdrawal: No Have you been hit, kicked, punched, or otherwise hurt by someone within the past year? If so, by whom?: No Do you feel safe in your current relationship?: Yes Is there a partner from a previous relationship who is making you feel unsafe now?: No Are you made to feel afraid or neglected: No [facility] Practices: none Advance Directives: No Advance Directives Information Provided: No Do you have thoughts of harming others: None Do you have a plan to hurt others: No Plan Recently lost weight without trying: Yes How much weight loss: 2-13 pounds Eating poorly because of decreased appetite: Yes Nutrition screen score: 4 Nutrition Risks: No Nutritional Risk Poor oral hygiene: No service: No Current occupational status: unemployed Meds Allergies Allergy/AdvReac Type Severity Reaction Status Date / Time No Known Allergies Allergy Verified 10/14/22 14:00 [No Known Allergies*] Active Medications: Current Medications Acetaminophen (Acetaminophen 325 Mg Tablet) 650 mg PO Q6H PRN PRN Reason: Pain, Mild (Pain Scale 1-3) Aspirin (Aspirin 81 Mg Tab.Chew) 81 mg PO DAILY [facility] Last Admin: 10/15/22 08:08 Dose: 81 mg Furosemide (Furosemide 40 Mg/4 Ml Vial) 40 mg IVPUSH BID@0900,1800 [facility]; Protocol Last Admin: 10/15/22 08:08 Dose: 40 mg Heparin Sodium (Porcine) (Heparin Sodium,Porcine 5,000 Unit/Ml Vial) 5,000 unit SUBCUT Q12H [facility] Last Admin: 10/15/22 05:14 Dose: 5,000 unit Ondansetron HCl (Ondansetron Hcl 4 Mg/2 Ml Vial) 4 mg IVPUSH Q8H PRN PRN Reason: Nausea and Vomiting Pharmacy Consult (Consult Rx Perform Med Rec) 1 each MISCELLANE ONCE PRN PRN Reason: Consult order Pharmacy Consult (Consult Rx Perform Med Rec) 1 each MISCELLANE ONCE PRN PRN Reason: Consult order Sacubitril/Valsartan (Sacubitril/Valsartan 1 Tab Tablet) 1 tab PO BID [facility]; Protocol Last Admin: 10/15/22 08:08 Dose: 1 tab Sodium Chloride (0.9 % Sodium Chloride Flush 3 Ml Syringe) 3 ml IVFLUSH QSHIFT [facility] Last Admin: 10/15/22 08:07 Dose: 3 ml Home Medications Medication Instructions Recorded Confirmed Last Taken Type No Known Home Meds 10/14/22 10/14/22 Unknown History Physical Exam Vital Signs: Vital Signs: Last Vital Signs Temp 98.6 F 10/15/22 07:25 Pulse 108 H 10/15/22 07:25 Resp 16 10/15/22 07:25 BP 124/89 10/15/22 07:25 Pulse Ox 96 10/15/22 07:25 O2 Del Method Room Air 10/15/22 07:25 BMI result Body Mass Index 19.2 Const: General: comfortable and no acute distress Or ientation/consciousness: patient oriented x3 HEENT: Other: Unremarkable Head: Yes normal to inspection Neck: Neck: Yes normal visual inspection Chest: Chest palpation & inspection: normal inspection of the chest Resp: Auscultation: clear to auscultation bilaterally Cardio: Other: JVD difficult to appreciate in his bed. Palpation: normal PMI Heart sounds: S1 normal heart sound present, S2 normal heart sound present, Gallop heart sound present, no murmurs and no rubs GI: Palpation (GI): Soft to palpation Back/Spine/Pelvis: Other: unremarkable Skin: General skin exam: no rashes or lesions noted Neuro: General: patient oriented x3 Extrem: General: Yes normal to inspection Psych: Mental Status: mental status grossly normal Objective Labs and Meds 10/15/22 05:51 10/15/22 05:51 Lab results: Laboratory Results - last 24 hr 10/14/22 10/14/22 10/14/22 14:18 14:18 14:18 WBC 9.8 RBC 5.84 H Hgb 16.1 Hct 48.5 MCV 83.0 MCH 27.6 MCHC 33.2 RDW 14.4 Plt Count 418 H MPV 9.9 Immature Gran % (Auto) 0.4 Neut % (Auto) 65.2 Lymph % (Auto) 23.7 [place] % (Auto) 9.5 Eos % (Auto) 0.1 Baso % (Auto) 1.1 Lymph # (Auto) 2.3 [place] # (Auto) 0.9 Eos # (Auto) 0.0 Baso # (Auto) 0.1 Abs Immat Gran (auto) 0.04 H Absolute Neuts (auto) 6.4 Absolute Nucleated RBC 0.000 Nucleated RBC % (auto) 0.0 Sodium 139 Potassium 5.0 Chloride 106 Carbon Dioxide 23 Anion Gap 15 BUN 27 H Creatinine 1.68 H Estim Creat Clear Calc 53.9 Estimated GFR 45 Random Glucose 114 Lactic Acid Calcium 9.3 Magnesium 1.9 Total Bilirubin 2.2 H Direct Bilirubin 0.6 H AST 130 H ALT 118 H Alkaline Phosphatase 102 Troponin I High Sens 66.5 H D B-Natriuretic Peptide Total Protein 5.7 L Albumin 3.3 L Urine Color Urine Appearance Urine pH Ur Specific [place] Urine Protein Urine Glucose (UA) Urine Ketones Urine Blood Urine Nitrite Ur Leukocyte Esterase Urine RBC Urine WBC Ur Squamous Epith Cells Urine Bacteria Hyaline Casts Urine Opiates Screen Urine Fentanyl Screen Ur Barbiturates Screen Ur Phencyclidine Scrn Ur Amphetamines Screen U Benzodiazepines Scrn Urine Cocaine Screen U Marijuana (THC) Screen COVID-19 ([facility]) COVID-19 Clin Com 10/14/22 10/14/22 10/14/22 14:18 14:18 14:18 WBC RBC Hgb Hct MCV MCH MCHC RDW Plt Count MPV Immature Gran % (Auto) Neut % (Auto) Lymph % (Auto) [place] % (Auto) Eos % (Auto) Baso % (Auto) Lymph # (Auto) [place] # (Auto) Eos # (Auto) Baso # (Auto) Abs Immat Gran (auto) Absolute Neuts (auto) Absolute Nucleated RBC Nucleated RBC % (auto) Sodium Potassium Chloride Carbon Dioxide Anion Gap BUN Creatinine Estim Creat Clear Calc Estimated GFR Random Glucose Lactic Acid 1.4 Calcium Magnesium Total Bilirubin Direct Bilirubin AST ALT Alkaline Phosphatase Troponin I High Sens B-Natriuretic Peptide 3247 H Total Protein Albumin Urine Color Urine Appearance Urine pH Ur Specific [place] Urine Protein Urine Glucose (UA) Urine Ketones Urine Blood Urine Nitrite Ur Leukocyte Esterase Urine RBC Urine WBC Ur Squamous Epith Cells Urine Bacteria Hyaline Casts Urine Opiates Screen Urine Fentanyl Screen Ur Barbiturates Screen Ur Phencyclidine Scrn Ur Amphetamines Screen U Benzodiazepines Scrn Urine Cocaine Screen U Marijuana (THC) Screen COVID-19 ([facility]) Negative COVID-19 [employer] Com See Note 10/14/22 10/14/22 10/14/22 15:53 21:45 21:45 WBC RBC Hgb Hct MCV MCH MCHC RDW Plt Count MPV Immature Gran % (Auto) Neut % (Auto) Lymph % (Auto) [place] % (Auto) Eos % (Auto) Baso % (Auto) Lymph # (Auto) [place] # (Auto) Eos # (Auto) Baso # (Auto) Abs Immat Gran (auto) Absolute Neuts (auto) Absolute Nucleated RBC Nucleated RBC % (auto) Sodium Potassium Chloride Carbon Dioxide Anion Gap BUN Creatinine Estim Creat Clear Calc Estimated GFR Random Glucose Lactic Acid Calcium Magnesium Total Bilirubin Direct Bilirubin AST ALT Alkaline Phosphatase Troponin I High Sens 60.6 H B-Natriuretic Peptide Total Protein Albumin Urine Color Yellow Urine Appearance Clear Urine pH 7.0 Ur Specific [place] <= 1.005 Urine Protein Negative Urine Glucose (UA) Negative Urine Ketones Negative Urine Blood Trace H Urine Nitrite Negative Ur Leukocyte Esterase Negative Urine RBC 3-5 H Urine WBC 0-5 Ur Squamous Epith Cells 0-2 Urine Bacteria None Seen Hyaline Casts 0-2 Urine Opiates Screen Not Detected Urine Fentanyl Screen POSITIVE H Ur Barbiturates Screen Not Detected Ur Phencyclidine Scrn Not Detected Ur Amphetamines Screen Not Detected U Benzodiazepines Scrn Not Detected Urine Cocaine Screen POSITIVE H U Marijuana (THC) Screen Not Detected COVID-19 ([facility]) COVID-19 [employer] Com 10/15/22 10/15/22 10/15/22 05:51 05:51 05:51 WBC 11.3 H RBC 6.08 H Hgb 16.5 Hct 49.8 MCV 81.9 MCH 27.1 MCHC 33.1 RDW 13.9 Plt Count 406 H MPV 10.0 Immature Gran % (Auto) Neut % (Auto) Lymph % (Auto) [place] % (Auto) Eos % (Auto) Baso % (Auto) Lymph # (Auto) [place] # (Auto) Eos # (Auto) Baso # (Auto) Abs Immat Gran (auto) Absolute Neuts (auto) Absolute Nucleated RBC 0.000 Nucleated RBC % (auto) 0.0 Sodium 141 Potassium 4.1 Chloride 104 Carbon Dioxide 27 Anion Gap 14 BUN 26 H Creatinine 1.56 H Estim Creat Clear Calc 58.0 Estimated GFR 49 Random Glucose 112 Lactic Acid Calcium 8.6 D Magnesium Total Bilirubin 2.1 H Direct Bilirubin 0.5 AST 75 H ALT 91 H Alkaline Phosphatase 88 Troponin I High Sens B-Natriuretic Peptide 2968 H Total Protein 5.0 L Albumin 2.7 L Urine Color Urine Appearance Urine pH Ur Specific [place] Urine Protein Urine Glucose (UA) Urine Ketones Urine Blood Urine Nitrite Ur Leukocyte Esterase Urine RBC Urine WBC Ur Squamous Epith Cells Urine Bacteria Hyaline Casts Urine Opiates Screen Urine Fentanyl Screen Ur Barbiturates Screen Ur Phencyclidine Scrn Ur Amphetamines Screen U Benzodiazepines Scrn Urine Cocaine Screen U Marijuana (THC) Screen COVID-19 ([facility]) COVID-19 Clin Com ECG Interpretation: EKG with sinus tachycardia, 111/Min; left ventricular hypertrophy pattern; non specific ST-T changes; normal ND and prolonged corrected QT at 505 milliseconds. Assessment and Plan (1) Acute combined systolic and diastolic CHF, NYHA class 4: Status: Acute (2) Cardiomyopathy: Status: Acute Plan Echocardiogram with severely depressed LVEF at less than 10%. Severely depressed RV systolic function. Moderate mitral regurgitation and [id number] tricuspid regurgitation with moderate pulmonary hypertension. Labs reveal significantly elevated cardiac BNP. Borderline troponin elevation is just from heart failure. Etiology unclear. More likely to be nonischemic cardiomyopathy but he still needs a diagnostic catheterization to assess coronaries. With regard to medications, he is on IV Lasix b.i.d.. So far, -1 L. otherwise, he has also been initiated on Entresto. Will hold off on beta-blockers at this time. Other meds to be optimized in due course. Time Spent With Patient Time: Total time managing care of this patient today 78 minutes. This includes review of chart, discussion with patient, spouse, [facility], ranging cardiac procedures, coordination of care, documentation. Procedures Date of Service Date of Service: 10/15/22
--- NOTE | 2022-10-15 10:20 | P.DS_ITS ---
DS: Providers Provider Date of Service: 10/15/22 Date of admission: 10/14/22 16:04 Date of discharge: 10/15/22 Primary care physician: Christian Arevalo MD Consults: 10/14/22 16:00 Consult to Cardiology Routine Consulting Provider: [facility] Reason for consultation: cardiomyopathy, new onset Has provider been notified: No 10/14/22 16:57 Consult to Nephrology Routine Consulting Provider: Indra Umanzor Reason for consultation: isabella Has provider been notified: No Attending physician on discharge: Ted Richard Discharging clinician: Lazara Thomas DS: Diagnosis Discharge Diagnosis (1) Acute combined systolic and diastolic CHF, NYHA class 4: Status: Acute (2) Cardiomyopathy: Status: Acute DS: Summary Hospital Course Hospital Course: From H&P on day of admission 42-year-old man presenting with worsening shortness of breath over the last week, present for over 6 weeks. He presented to the ER initially on 08/03/2022 with shortness of breath and insomnia.? His troponin at that time was 66.3, EKG showing sinus tachycardia with PACs, left ve ntricular hypertrophy and ST-T changes.? His flu RSV and COVID were negative.? Apparently when the provider went back to re-evaluate the patient he had eloped from the ED and his treatment was not continued.? His chest x-ray from July 2022 showed multifocal airspace opacities in the right lung with hazy opacities in the left mid to upper lung concerning for infectious versus inflammatory process however did not show enlargement of his heart.? It appears that he was placed on Ceftin by his primary care provider and no other workup was completed.? He reports over the last 6 weeks he has had worsening shortness of breath ambulating and at rest, PND and orthopnea noted.? He reports that he usually takes care of his grandson and he is finding that he is even unable to walk 10 ft.? This is been getting worse over the last 6 weeks and even worse over the last week.? Prior to July he stated that he had no other health problems and has been out of work since COVID and again taking care of his grandson.? He denied chest pain, fever, chills, nausea, vomiting, diarrhea, recent travel, sick contacts, alcohol abuse, drug abuse, smoking. ? Blood pressure was noted to be elevated with highest reading of 134/104, tachycardia noted, creatinine 1.68, bilirubin 2.2, AST 130, ALT 180, troponin 66.5, COVID negative. He was given a dose of IV Lasix, aspirin.? He will be admitted for further management and treatment of acute cardiomyopathy. acute combined systolic and diastolic CHF. Echocardiogram with EF less than 10, severely decreased right ventricular systolic function, moderate pulmonary hypertension, severe global hypokinesis with grade 3 diastolic dysfunction. BNP 3247 on admission, down to 2968 today. started on Lasix for diuresis and negative 1L thus far. started on entresto, ASA. seen by cardiology, plan for transfer to [facility] for cardiac cath. tox screen + for fentanyl and cocaine, possible drug induced cardiomyopathy. no BB at this time. ISABELLA. Cretinine 1.67 on admission, down to 1.56 today. denies known hx of kidney disease. likely worsening renal function from heart failure. Transaminitis. possibly from CHF. no history of underlying liver dz. follow LFTs Elevated blood pressure readings no hx of HTN. started on lasix, entresto Protein calorie malnutrition.? BMI 19.3 Poor nutrition and poor appetite. add ensure to diet Time Spent with Patient Time attestation: Total time managing care of this patient today ____ minutes. Discharge coordination time: Greater than 30 minutes Quality: Safe Use of Opioids Does Pt have an Active Cancer Diagnosis on the Problem List?: No Quality: Stroke Does the patient have a stroke diagnosis?: No Physical Exam Vital Signs: Vital Signs: Last Vital Signs Temp 98.6 F 10/15/22 07:25 Pulse 108 H 10/15/22 07:25 Resp 16 10/15/22 07:25 BP 124/89 10/15/22 07:25 Pulse Ox 96 10/15/22 07:25 O2 Del Method Room Air 10/15/22 07:25 BMI result Body Mass Index 19.2 Const: General: alert and awake Nutritional Appearance: average body habitus Orientation/consciousness: patient oriented x3 Resp: Effort & Inspection: normal respiratory effort and able to speak in complete sentences Cardio: Rate: tachycardic GI: Inspection: No distended Palpation (GI): Soft to palpation and nontender Neuro: General: patient oriented x3 and CN's II-XI intact bilaterally Extrem: General: Yes no pedal edema DS: Data Data Completed and Pending Labs on day of discharge: Laboratory Results - last 24 hr 10/14/22 10/14/22 10/14/22 14:18 14:18 14:18 WBC 9.8 RBC 5.84 H Hgb 16.1 Hct 48.5 MCV 83.0 MCH 27.6 MCHC 33.2 RDW 14.4 Plt Count 418 H MPV 9.9 Immature Gran % (Auto) 0.4 Neut % (Auto) 65.2 Lymph % (Auto) 23.7 [place] % (Auto) 9.5 Eos % (Auto) 0.1 Baso % (Auto) 1.1 Lymph # (Auto) 2.3 [place] # (Auto) 0.9 Eos # (Auto) 0.0 Baso # (Auto) 0.1 Abs Immat Gran (auto) 0.04 H Absolute Neuts (auto) 6.4 Absolute Nucleated RBC 0.000 Nucleated RBC % (auto) 0.0 Sodium 139 Potassium 5.0 Chloride 106 Carbon Dioxide 23 Anion Gap 15 BUN 27 H Creatinine 1.68 H Estim Creat Clear Calc 53.9 Estimated GFR 45 Random Glucose 114 Lactic Acid Calcium 9.3 Magnesium 1.9 Total Bilirubin 2.2 H Direct Bilirubin 0.6 H AST 130 H ALT 118 H Alkaline Phosphatase 102 Troponin I High Sens 66.5 H D B-Natriuretic Peptide Total Protein 5.7 L Albumin 3.3 L Urine Color Urine Appearance Urine pH Ur Specific [place] Urine Protein Urine Glucose (UA) Urine Ketones Urine Blood Urine Nitrite Ur Leukocyte Esterase Urine RBC Urine WBC Ur Squamous Epith Cells Urine Bacteria Hyaline Casts Urine Opiates Screen Urine Fentanyl Screen Ur Barbiturates Screen Ur Phencyclidine Scrn Ur Amphetamines Screen U Benzodiazepines Scrn Urine Cocaine Screen U Marijuana (THC) Screen COVID-19 ([facility]) COVID-19 Clin Com 10/14/22 10/14/22 10/14/22 14:18 14:18 14:18 WBC RBC Hgb Hct MCV MCH MCHC RDW Plt Count MPV Immature Gran % (Auto) Neut % (Auto) Lymph % (Auto) [place] % (Auto) Eos % (Auto) Baso % (Auto) Lymph # (Auto) [place] # (Auto) Eos # (Auto) Baso # (Auto) Abs Immat Gran (auto) Absolute Neuts (auto) Absolute Nucleated RBC Nucleated RBC % (auto) Sodium Potassium Chloride Carbon Dioxide Anion Gap BUN Creatinine Estim Creat Clear Calc Estimated GFR Random Glucose Lactic Acid 1.4 Calcium Magnesium Total Bilirubin Direct Bilirubin AST ALT Alkaline Phosphatase Troponin I High Sens B-Natriuretic Peptide 3247 H Total Protein Albumin Urine Color Urine Appearance Urine pH Ur Specific [place] Urine Protein Urine Glucose (UA) Urine Ketones Urine Blood Urine Nitrite Ur Leukocyte Esterase Urine RBC Urine WBC Ur Squamous Epith Cells Urine Bacteria Hyaline Casts Urine Opiates Screen Urine Fentanyl Screen Ur Barbiturates Screen Ur Phencyclidine Scrn Ur Amphetamines Screen U Benzodiazepines Scrn Urine Cocaine Screen U Marijuana (THC) Screen COVID-19 ([facility]) Negative [employer] Com See Note 10/14/22 10/14/22 10/14/22 15:53 21:45 21:45 WBC RBC Hgb Hct MCV MCH MCHC RDW Plt Count MPV Immature Gran % (Auto) Neut % (Auto) Lymph % (Auto) [place] % (Auto) Eos % (Auto) Baso % (Auto) Lymph # (Auto) [place] # (Auto) Eos # (Auto) Baso # (Auto) Abs Immat Gran (auto) Absolute Neuts (auto) Absolute Nucleated RBC Nucleated RBC % (auto) Sodium Potassium Chloride Carbon Dioxide Anion Gap BUN Creatinine Estim Creat Clear Calc Estimated GFR Random Glucose Lactic Acid Calcium Magnesium Total Bilirubin Direct Bilirubin AST ALT Alkaline Phosphatase Troponin I High Sens 60.6 H B-Natriuretic Peptide Total Protein Albumin Urine Color Yellow Urine Appearance Clear Urine pH 7.0 Ur Specific [place] <= 1.005 Urine Protein Negative Urine Glucose (UA) Negative Urine Ketones Negative Urine Blood Trace H Urine Nitrite Negative Ur Leukocyte Esterase Negative Urine RBC 3-5 H Urine WBC 0-5 Ur Squamous Epith Cells 0-2 Urine Bacteria None Seen Hyaline Casts 0-2 Urine Opiates Screen Not Detected Urine Fentanyl Screen POSITIVE H Ur Barbiturates Screen Not Detected Ur Phencyclidine Scrn Not Detected Ur Amphetamines Screen Not Detected U Benzodiazepines Scrn Not Detected Urine Cocaine Screen POSITIVE H U Marijuana (THC) Screen Not Detected COVID-19 ([facility]) [employer] 10/15/22 10/15/22 10/15/22 05:51 05:51 05:51 WBC 11.3 H RBC 6.08 H Hgb 16.5 Hct 49.8 MCV 81.9 MCH 27.1 MCHC 33.1 RDW 13.9 Plt Count 406 H MPV 10.0 Immature Gran % (Auto) Neut % (Auto) Lymph % (Auto) [place] % (Auto) Eos % (Auto) Baso % (Auto) Lymph # (Auto) [place] # (Auto) Eos # (Auto) Baso # (Auto) Abs Immat Gran (auto) Absolute Neuts (auto) Absolute Nucleated RBC 0.000 Nucleated RBC % (auto) 0.0 Sodium 141 Potassium 4.1 Chloride 104 Carbon Dioxide 27 Anion Gap 14 BUN 26 H Creatinine 1.56 H Estim Creat Clear Calc 58.0 Estimated GFR 49 Random Glucose 112 Lactic Acid Calcium 8.6 D Magnesium Total Bilirubin 2.1 H Direct Bilirubin 0.5 AST 75 H ALT 91 H Alkaline Phosphatase 88 Troponin I High Sens B-Natriuretic Peptide 2968 H Total Protein 5.0 L Albumin 2.7 L Urine Color Urine Appearance Urine pH Ur Specific [place] Urine Protein Urine Glucose (UA) Urine Ketones Urine Blood Urine Nitrite Ur Leukocyte Esterase Urine RBC Urine WBC Ur Squamous Epith Cells Urine Bacteria Hyaline Casts Urine Opiates Screen Urine Fentanyl Screen Ur Barbiturates Screen Ur Phencyclidine Scrn Ur Amphetamines Screen U Benzodiazepines Scrn Urine Cocaine Screen U Marijuana (THC) Screen COVID-19 ([facility]) COVID-19 Clin Com Discharge Plan Discharge Anticipated Discharge Date/Time: 10/15/22 10:29 Patient Disposition: Xfer Acute Care Hospital Discharge Diagnosis: acute CHF Referrals: Christian Arevalo MD [Primary Care Provider] - 1 Week Discharge Medications: New furosemide 10 mg/mL Solution 40 mg IVPUSH BID@0900,1800 Qty: 40 0RF Protocol: Hold for SBP< HOLD for SBP < : 90 Entresto 24-26 mg Tablet 1 tab PO BID 30 Days Qty: 60 0RF Protocol: Hold for SBP< HOLD for SBP < : 90 aspirin 81 mg Tablet,Chewable 81 mg PO DAILY 30 Days Qty: 30 0RF No Action No Known Home Meds Discharge Orders: Discharge Order (Routine); Ordered 10/15/22 Ordered By: Lazara Thomas Activity on Discharge: As tolerated Stand Alone Forms: Patient Portal Discharge page Care Plan Goals: see below Health Concerns: acute combined diastolic and systolic CHF Plan of Treatment: transfer to [facility] for further cardiac work up including likely cardiac cath entresto has been started Assessment: see discharge summary
--- NOTE | 2022-10-15 10:40 | MHC.CM.PN ---
Patient will transfer/dc to [facility] today.
--- NOTE | 2022-10-15 10:50 | PM.CNNEP ---
History of Present Illness Reason for Consult Consult date: 10/15/22 Reason for consult: ISABELLA Chief Complaint Chief complaint: CMP,CHF History of Present Illness Narrative: 42-year-old man presenting with worsening shortness of breath over the last week, present for over 6 weeks. He presented to the ER initially on 08/03/2022 with shortness of breath and insomnia.? His troponin at that time was 66.3, EKG showing sinus tachycardia with PACs, left ventricular hypertrophy and ST-T changes.? His flu RSV and COVID were negative.? Apparently when the provider went back to re-evaluate the patient he had eloped from the ED and his treatment was not continued.? His chest x-ray from July 2022 showed multifocal airspace opacities in the right lung with hazy opacities in the left mid to upper lung concerning for infectious versus inflammatory process however did not show enlargement of his heart.? It appears that he was placed on Ceftin by his primary care provider and no other workup was completed.? He reports over the last 6 weeks he has had worsening shortness of breath ambulating and at rest, PND and orthopnea noted.? He reports that he usually takes care of his grandson and he is finding that he is even unable to walk 10 ft.? This is been getting worse over the last 6 weeks and even worse over the last week.? Prior to July he stated that he had no other health problems and has been out [place] [facility] [place] and again taking care of his grandson.? He denied chest pain, fever, chills, nausea, vomiting, diarrhea, recent travel, sick contacts, alcohol abuse, drug abuse, smoking. ? Blood pressure was noted to be elevated with highest reading of 134/104, tachycardia noted, creatinine 1.68, bilirubin 2.2, AST 130, ALT 180, troponin 66.5, COVID negative. He was given a dose of IV Lasix, aspirin.? He will be admitted for further management and treatment of acute cardiomyopathy. Baseline creatinine was 1.142 months ago. Now creatinine has bumped up to 1.4. He denies significant edema which has improved with IV Lasix. He admits to using heroin and usually sniffs. Review of Systems Review of Systems Denies any recent fever chills or decrease in appetite, reported 10-20lb weight loss over the last 6 weeks respiratory See HPI cardiovascular See HPI gastrointestinal denies any dysphagia abdominal pain nausea vomiting or diarrhea genitourinary denies any dysuria frequency or hematuria musculoskeletal denies any joint pain or swelling neuropsych denies any weakness or seizures all other systems reviewed are negative [facility] Past Medical History Medical History (Updated 10/15/22 @ 10:52 by Indra Umanzor MD) No pertinent past medical history Family History Family History (Updated 10/15/22 @ 09:11 by Shar Elizabeth MD) Father Diabetes Mother Diabetes Surgical History Surgical History No pertinent past surgical history Social History Social History Household Members: Significant Other Housing: Apartment Do you presently have visiting nurse or other home services: No Alcohol intake: never Patient Tobacco Use Status: Never used Tobacco Smoked in Last 30 Days: No Use of substances other than those prescribed or required for medical reasons: No Substance Use Type: Marijuana Currently Displaying Signs/Symptoms of Drug Intoxication Withdrawal: No Have you been hit, kicked, punched, or otherwise hurt by someone within the past year? If so, by whom?: No Do you feel safe in your current relationship?: Yes Is there a partner from a previous relationship who is making you feel unsafe now?: No Are you made to feel afraid or neglected: No Anabaptism Healthcare Practices: none Advance Directives: No Advance Directives Information Provided: No Do you have thoughts of harming others: None Do you have a plan to hurt others: No Plan Recently lost weight without trying: Yes How much weight loss: 2-13 pounds Eating poorly because of decreased appetite: Yes Nutrition screen score: 4 Nutrition Risks: No Nutritional Risk Poor oral hygiene: No service: No Current occupational status: unemployed Meds Allergies Allergy/AdvReac Type Severity Reaction Status Date / Time No Known Allergies Allergy Verified 10/14/22 14:00 [No Known Allergies*] Active Medications: Current Medications Acetaminophen (Acetaminophen 325 Mg Tablet) 650 mg PO Q6H PRN PRN Reason: Pain, Mild (Pain Scale 1-3) Aspirin (Aspirin 81 Mg Tab.Chew) 81 mg PO DAILY [facility] Last Admin: 10/15/22 08:08 Dose: 81 mg Furosemide (Furosemide 40 Mg/4 Ml Vial) 40 mg IVPUSH BID@0900,1800 [facility]; Protocol Last Admin: 10/15/22 08:08 Dose: 40 mg Heparin Sodium (Porcine) (Heparin Sodium,Porcine 5,000 Unit/Ml Vial) 5,000 unit SUBCUT Q12H [facility] Last Admin: 10/15/22 05:14 Dose: 5,000 unit Ondansetron HCl (Ondansetron Hcl 4 Mg/2 Ml Vial) 4 mg IVPUSH Q8H PRN PRN Reason: Nausea and Vomiting Pharmacy Consult (Consult Rx Perform Med Rec) 1 each MISCELLANE ONCE PRN PRN Reason: Consult order Pharmacy Consult (Consult Rx Perform Med Rec) 1 each MISCELLANE ONCE PRN PRN Reason: Consult order Sacubitril/Valsartan (Sacubitril/Valsartan 1 Tab Tablet) 1 tab PO BID [facility]; Protocol Last Admin: 10/15/22 08:08 Dose: 1 tab Sodium Chloride (0.9 % Sodium Chloride Flush 3 Ml Syringe) 3 ml IVFLUSH QSHIFT [facility] Last Admin: 10/15/22 08:07 Dose: 3 ml Physical Exam Vital Signs: Last Vital Signs Temp 98.6 F 10/15/22 07:25 Pulse 108 H 10/15/22 07:25 Resp 16 10/15/22 07:25 BP 124/89 10/15/22 07:25 Pulse Ox 96 10/15/22 07:25 O2 Del Method Room Air 10/15/22 07:25 BMI result Body Mass Index 19.2 Const General: comfortable, no acute distress, alert and awake HEENT Head: Yes normal to inspection Neck Neck: Yes normal visual inspection Resp Effort & Inspection: normal respiratory effort and able to speak in complete sentences Cardio Rate: tachycardic Heart sounds: S1 normal heart sound present, S2 normal heart sound present, Gallop heart sound present, no murmurs and no rubs GI Inspection: No distended Palpation (GI): Soft to palpation and nontender Skin General skin exam: no rashes or lesions noted Extrem Other: No pedal edema. No calf tenderness Results Lab Results 10/15/22 05:51 10/15/22 05:51 Lab results: Chemistry 10/14/22 10/15/22 14:18 05:51 Sodium 139 141 Potassium 5.0 4.1 Carbon Dioxide 23 27 BUN 27 H 26 H Creatinine 1.68 H 1.56 H Calcium 9.3 8.6 D Hematology 10/14/22 10/15/22 14:18 05:51 WBC 9.8 11.3 H Hgb 16.1 16.5 Plt Count 418 H 406 H Urinalysis 10/14/22 21:45 Urine Color Yellow Urine Appearance Clear Urine pH 7.0 Ur Specific [place] <= 1.005 Urine Protein Negative Urine Glucose (UA) Negative Urine Ketones Negative Urine Blood Trace H Urine Nitrite Negative Ur Leukocyte Esterase Negative Urine RBC 3-5 H Urine WBC 0-5 Ur Squamous Epith Cells 0-2 Hyaline Casts 0-2 Assessment and Plan (1) Acute combined systolic and diastolic CHF, NYHA class 4: Status: Acute (2) Cardiomyopathy: Status: Acute (3) ISABELLA (acute kidney injury): Status: Acute Plan ISABELLA superimposed on CKD in the setting of heroin abuse and severely reduced cardiac function. He has biventricular failure with EF of less than 10%. I suspect he has hypoperfusion playing a significant role in decreased EGFR. However with a history of drug abuse underlying glomerulonephritis should be considered. Obstructive uropathy seems less likely based on the clinical picture. Recommendations Check urine for sodium, creatinine, protein. Optimize diuretics. Avoid hypotension and nephrotoxic agents Obtain renal ultrasonogram to assess echogenicity and rule out obstruction. He is at a high risk for ongoing renal injury. Further workup will be based on the outcome of the above basic investigations and we will follow him along with the team. Thank you Time Spent With Patient Time: Total time managing care of this patient today ____ minutes. Procedures Date of Service Date of Service: 10/15/22
[2022-10-15 11:11] VITALS: BP 105/66; PULSE 105; RESP 16; TEMP 37.1; O2SAT 96
[2022-10-15 16:00] VITALS: BP 114/56; PULSE 109; RESP 18; TEMP 37.1; O2SAT 98
== END 2022-10-15 16:30 | disposition short-term general hospital (02) | DRG 205 ==
LOC: HO.ED 15:38 → HO.EDOVER 16:13 → HO.IMC 16:24
PROVIDERS: Physician Assistant; Admitting Provider Nurse Practitioner Acute Care; Emergency Provider Emergency Medicine; PCP Internal Medicine; Visit Provider Physician Assistant Medical
DX: I42.9 Cardiomyopathy, unspecified (principal); I50.41 Acute combined systolic (congestive) and diastolic (congestive) heart failure; N17.9 Acute kidney failure, unspecified; E46 Unspecified protein-calorie malnutrition; I27.20 Pulmonary hypertension, unspecified; N18.9 Chronic kidney disease, unspecified; R03.0 Elevated blood-pressure reading, without diagnosis of hypertension; I08.1 Rheumatic disorders of both mitral and tricuspid valves; Z68.1 Body mass index [BMI] 19.9 or less, adult; Z20.822 Contact with and (suspected) exposure to COVID-19
CPT/HCPCS: 36415; 80048; 80076; 80307; 81001; 83605; 83735; 83880; 84484; 85025; 85027; 87040; 87635; 93005; 93306; 99285; C1758; J1643; J1940; Q9957

== ENCOUNTER → 2022-11-05 13:03 | Outpatient (BNVA) | payer MEDICAID, SELFPAY | PROVIDERS: PCP Internal Medicine; Referring Provider Internal Medicine; Visit Provider Internal Medicine | DX: I42.8 Other cardiomyopathies (principal); F19.10 Other psychoactive substance abuse, uncomplicated | CPT/HCPCS: 99212 ==

== ENCOUNTER 2022-12-08 12:49 | Outpatient (REF) | payer MEDICAID, SELFPAY ==
[2022-12-08 13:12] LABS: MANUAL DIFF FLAG NO
[2022-12-08 13:56] LABS: Basophils Absolute Auto 0.1 X10*3/uL (0.0-0.2); Basophils Percent Auto 1.1 % (0-2); Eosinophils Absolute Auto 0.4 X10*3/uL (0.0-0.4); Eosinophils Percent Auto 3.8 % (0-4); Hematocrit 43.5 % (42.0-52.0); Hemoglobin 14.1 g/dl (14.0-18.0); Imm Gran Abs Auto 0.04 X10*3/uL (0.00-0.03); Imm Gran Pct Auto 0.4 % (0.0-0.4); Lymphocytes Absolute Auto 3.1 X10*3/uL (1.2-4.9); Lymphocytes Percent Auto 28.4 % (20-40); Mean Corpuscular HGB Conc 32.4 g/dl (31.0-36.0); Mean Corpuscular Hemoglobin 27.2 pg (27.0-33.0); Mean Platelet Volume 9.6 fL (9.4-12.4); Monocytes Percent Auto 9.5 % (2-11); Neutrophils Absolute Auto 6.1 x10*3/uL (2.0-8.3); Neutrophils Percent Auto 56.8 % (45-73); Platelet Count 350 X10*3/uL (160-400); Red Blood Count 5.18 X10*6/uL (4.60-5.80); Red Cell Distribution Width 15.4 % (11.0-16.0); White Blood Count 10.8 X10*3/uL (4.8-10.8)
[2022-12-08 14:26] LABS: B Type Natriuretic Peptide 3283 pg/mL (<100)
[2022-12-08 14:27] LABS: Anion Gap 13 (12-20); Blood Urea Nitrogen 32 mg/dL (9-16); Calcium 9.2 mg/dL (8.4-10.2); Carbon Dioxide 24 mmol/L (22-29); Chloride 110 mmol/L (96-108); Estimated Glomerular Filt Rate 31; Glucose Random 99 mg/dL (60-115); Potassium 4.9 mmol/L (3.3-5.1); Sodium 142 mmol/L (135-145)
[2022-12-08 14:31] LABS: Alanine Aminotransferase 42 U/L (0-40); Albumin Level 3.7 g/dL (3.5-5.0); Alkaline Phosphatase 82 U/L (39-117); Anion Gap 13 (12-20); Aspartate Amino Transferase 42 U/L (5-37); Bilirubin Total 1.9 mg/dL (0.0-1.0); Blood Urea Nitrogen 32 mg/dL (9-16); Calcium 9.1 mg/dL (8.4-10.2); Carbon Dioxide 25 mmol/L (22-29); Chloride 109 mmol/L (96-108); Estimated Glomerular Filt Rate 30; Glucose Random 100 mg/dL (60-115); Potassium 4.8 mmol/L (3.3-5.1); Sodium 142 mmol/L (135-145); Total Protein 5.9 g/dL (6.5-8.0)
== END 2022-12-08 12:50 | disposition home or self-care (01) ==
LOC: HO.LAB 12:49
PROVIDERS: Absent Provider Internal Medicine; PCP Internal Medicine; Visit Provider Internal Medicine
DX: I50.22 Chronic systolic (congestive) heart failure (principal); I42.8 Other cardiomyopathies; R79.89 Other specified abnormal findings of blood chemistry; N18.9 Chronic kidney disease, unspecified
CPT/HCPCS: 36415; 80048; 80053; 83880; 85025

== ENCOUNTER 2023-02-16 11:26 | Outpatient (REF) | payer MEDICAID, SELFPAY ==
[2023-02-16 13:30] LABS: MANUAL DIFF FLAG NO
[2023-02-16 13:44] LABS: Basophils Absolute Auto 0.1 X10*3/uL (0.0-0.2); Basophils Percent Auto 1.2 % (0-2); Eosinophils Absolute Auto 1.2 X10*3/uL (0.0-0.4); Eosinophils Percent Auto 11.5 % (0-4); Hematocrit 39.1 % (42.0-52.0); Hemoglobin 12.5 g/dl (14.0-18.0); Imm Gran Abs Auto 0.03 X10*3/uL (0.00-0.03); Imm Gran Pct Auto 0.3 % (0.0-0.4); Lymphocytes Absolute Auto 2.5 X10*3/uL (1.2-4.9); Lymphocytes Percent Auto 23.8 % (20-40); Mean Corpuscular Hemoglobin 27.5 pg (27.0-33.0); Mean Corpuscular Volume 86.1 fL (80.0-98.0); Mean Platelet Volume 10.6 fL (9.4-12.4); Monocytes Percent Auto 9.4 % (2-11); Neutrophils Absolute Auto 5.6 x10*3/uL (2.0-8.3); Neutrophils Percent Auto 53.8 % (45-73); Platelet Count 317 X10*3/uL (160-400); Red Blood Count 4.54 X10*6/uL (4.60-5.80); Red Cell Distribution Width 15.9 % (11.0-16.0); White Blood Count 10.3 X10*3/uL (4.8-10.8)
[2023-02-16 14:07] LABS: Appearance Urine Clear; Color Urine Yellow; Glucose Urine UA Negative (Negative); Leukocyte Esterase Urine Negative (Negative); Nitrite Urine Negative (Negative); Urine Blood Negative (Negative); Urine Ketones Negative (Negative); Urine Protein Negative (Neg-Trace)
[2023-02-16 14:20] LABS: Alanine Aminotransferase 18 U/L (0-40); Alkaline Phosphatase 92 U/L (39-117); Anion Gap 15 (12-20); Aspartate Amino Transferase 22 U/L (5-37); Bilirubin Total 0.6 mg/dL (0.0-1.0); Blood Urea Nitrogen 28 mg/dL (9-16); Calcium 9.8 mg/dL (8.4-10.2); Carbon Dioxide 23 mmol/L (22-29); Chloride 106 mmol/L (96-108); Estimated Glomerular Filt Rate 54; Glucose Random 89 mg/dL (60-115); Potassium 4.7 mmol/L (3.3-5.1); Sodium 139 mmol/L (135-145)
[2023-02-16 14:21] LABS: Free T4 (Free Thyroxine) 0.91 ng/dL (0.71-1.85); Thyroid Stimulating Hormone 2.21 uIU/mL (0.32-4.0)
[2023-02-16 14:40] LABS: B Type Natriuretic Peptide 468 pg/mL (<100)
[2023-02-17 05:51] LABS: Amphetamine Screen Urine Not Detected (Not Detect); Barbiturates, Urine Not Detected (Not Detect); Benzodiazepines Screen Urine Not Detected (Not Detect); Cannabinoid Screen Urine Not Detected (Not Detect); Cocaine Screen Urine POSITIVE (Not Detect); Fentanyl, urine POSITIVE (Not Detect); Opiate Screen Urine POSITIVE (Not Detect); Phencyclidine Screen Urine Not Detected (Not Detect)
== END 2023-02-16 11:27 | disposition home or self-care (01) ==
LOC: HO.10HDL 11:26
PROVIDERS: Visit Provider Internal Medicine
DX: I42.9 Cardiomyopathy, unspecified (principal); R63.4 Abnormal weight loss; N18.9 Chronic kidney disease, unspecified
CPT/HCPCS: 36415; 80053; 80307; 81003; 83880; 84439; 84443; 85025

== ENCOUNTER 2023-04-08 14:58 | Outpatient (AMB) | payer MEDICAID, SELFPAY ==
--- NOTE | 2023-04-08 15:01 | A.OFFVIS_ITS ---
Intake Vital Signs 04/08/23 15:02 Height 6 ft 2 in Weight 144 lb 2.917 oz BMI 18.5 BP 124/72 Blood Pressure Location Lt brachial Position Sitting Pulse 104 H Pulse Source Pulse Oximeter Intake Visit Reasons: 2 month follow up Intake Note: 2 month f/u Security System Administrator Required: No Allergies No Known Allergies [No Known Allergies*] Allergy (Verified 04/08/23 15:07) Medication List - Last Reconciled 04/08/23 by Jasmine Dupree NP-C furosemide (Lasix) 20 mg PO DAILY wuytecwbnxpn-xwch-tpurr acid 18-400 mg-mcg (Certavite-Antioxidant) 1 tab PO DAILY sacubitril-valsartan 24-26 mg (Entresto) 1 tab PO BID 90 days HPI 2 month follow up HPI Details Sanchez is a 42-year-old male with past medical history of substance abuse, nonischemic cardiomyopathy, systolic and diastolic heart failure, ISABELLA who presents for follow-up. Today he reports that he has been doing only light physical activities. He describes his breathing as being normal. He denies PND, orthopnea or edema. No chest discomfort at rest with activity. He denies presyncope, syncope, falls. He is not doing any heavy lifting. He says he stopped cocaine use about a month and half ago. He tells me he is taking his Entresto and Lasix as directed. [facility] Medical History No pertinent past medical history Surgical History Hx of cardiac cath Family History Father Diabetes Mother Diabetes Social History Household Members: Significant Other Housing: Apartment Do you presently have visiting nurse or other home services: No Alcohol intake: never Patient Tobacco Use Status: Never used Tobacco e-Cigarette/Vaping Use: Currently Using service: No Current occupational status: unemployed Review of Systems Const All systems reviewed & are unremarkable except as noted in HPI and below ENT Denies dizziness Card Denies chest pain, Denies chest pain at rest, Denies chest pain with activity, Denies rapid heart rate, Denies pedal edema, Denies edema, Denies leg edema, Denies lightheadedness, Denies palpitations, Denies dyspnea, Denies dyspnea on exertion and Denies orthopnea Resp Denies cough, Denies dyspnea and Denies dyspnea on exertion GI Denies hematochezia and Denies change in stool character Musc Denies abnormal gait, Denies limited range of motion, Denies muscle cramps, Denies muscle weakness, Denies numbness, Denies radiating pain into limb, Denies stiffness and Denies tingling Neuro Denies abnormal gait, Denies dizziness, Denies numbness and Denies tingling Endo Denies palpitations Physical Exam Vital Signs: Last Vital Signs Pulse 104 H 04/08/23 15:02 BP 124/72 04/08/23 15:02 BMI result Body Mass Index 18.5 Const General: cooperative, healthy appearing, comfortable and no acute distress Orientation/consciousness: patient oriented x3 Neck Neck: Yes normal visual inspection Resp Effort & Inspection: normal respiratory effort Auscultation: clear to auscultation bilaterally, no crackles, no rales, no rhonchi and no wheezes Cardio Jugular venous distension: no JVD Rate: regular rate Rhythm: regular rhythm Heart sounds: S1 normal heart sound present, S2 normal heart sound present, no murmurs and no rubs Neuro General: patient oriented x3 Extrem General: Yes normal to inspection Psych Appearance: grossly normal Mental Status: mental status grossly normal Speech and movement: Normal speech and movement present Office Procedures EKG Details: Today, read by me, sinus tachycardia, right atrial enlargement, left ventricular hypertrophy with repolarization abnormality, prolonged QTc, rate 104 [id number], Complete Assessment & Plan Assessment & Plan (1) NICM (nonischemic cardiomyopathy): Code(s): I42.8 - Other cardiomyopathies Plan: History of nonischemic cardiomyopathy. Echo from 03/14/2021 showed EF 40-45%. [place] 2022 [place] [facility] [place] shortness of breath and found to have acute systolic and diastolic heart failure. Echo done 10/14/2022 showing EF less than 10%, severe decrease in the RV systolic function, moderate MR, fxnz-de-rwjkickn TR, moderate pulmonary hypertension. His drug screen was positive for fentanyl and cocaine. His cardiomyopathy was felt to be related to drug use. Beta-bhargav was not instituted at that time. He was started on Entresto for neurohormonal modulation as well as Lasix. He had cardiac catheterization on 10/14/2022 showing normal coronary arteries. Today he reports he has been doing well with no recurrent hospital admissions. He does only light physical activity and denies issues with shortness of breath or chest discomfort. He reports compliance with his medications, Entresto and Lasix. EKG done today showing sinus tachycardia, LVH with repolarization abnormality, prolonged QTc interval, 520 milliseconds. He tells me he quit cocaine use 6 weeks ago. The strict importance of cocaine cessation discussed. Patient is agreeable to doing a drug screen. Will check urine tox screen, CMP, serum magnesium. Will check limited echo to reassess EF. Plan to call him with results. If urine tox screen is negative will consider start of beta-bhargav. Patient has been informed that he is currently not on optimal treatment due to his drug use, risk of using beta-bhargav with cocaine reviewed. If he stops drug use ICD can be considered if still warranted. Signs and symptoms of heart failure reviewed. Instructed on continuing only light physical activity. Cardiology office visit in 3 months, sooner if needed (2) Substance abuse: Code(s): F19.10 - Other psychoactive substance abuse, uncomplicated (3) QT prolongation: Code(s): R94.31 - Abnormal electrocardiogram [ECG] [EKG] Plan: QTC 520 milliseconds on EKG today. Checking labs as above Orders: Orders CA echo limited 2 Weeks I42.8 - Other cardiomyopathies Comprehensive Met. Panel Today R94.31 - Abnormal electrocardiogram [ECG] [EKG] Drug Screen Urine Today F19.10 - Other psychoactive substance abuse, uncomplicated, I42.8 - Other cardiomyopathies Magnesium Today R94.31 - Abnormal electrocardiogram [ECG] [EKG] Coding Level of Care Code Est Pt Level 3 (00499) Diagnoses NICM (nonischemic cardiomyopathy) I42.8 Substance abuse F19.10 QT prolongation R94.31 CPT Codes EKG - CPT: 67756-[id number], Complete ([id number]) Time Spent (min) 26
[2023-04-08 15:02] VITALS: BP 124/72; PULSE 104; BMI 18.5
== END 2023-04-08 15:36 | disposition home or self-care (01) ==
PROVIDERS: PCP Internal Medicine; Visit Provider Nurse Practitioner Family
DX: I42.8 Other cardiomyopathies (principal); F19.10 Other psychoactive substance abuse, uncomplicated; R94.31 Abnormal electrocardiogram [ECG] [EKG]
CPT/HCPCS: 93010; 99213

== ENCOUNTER → 2023-04-08 14:58 | Outpatient (BNVA) | payer MEDICAID, SELFPAY | PROVIDERS: PCP Internal Medicine; Visit Provider Nurse Practitioner Family | DX: I42.8 Other cardiomyopathies (principal); R94.31 Abnormal electrocardiogram [ECG] [EKG]; F19.10 Other psychoactive substance abuse, uncomplicated | CPT/HCPCS: 93005; 99212 ==

== ENCOUNTER → 2023-04-28 09:04 | Outpatient (REF) | payer MEDICAID, SELFPAY ==
--- NOTE | 2023-04-28 09:09 | CA_ITS ---
Transthoracic Echocardiogram Patient (Last, First, Middle): Sanchez Roche E Gender: Male Date of : 1980 Age: 42 Procedure Date: 04/28/2023 Procedure Type: Transthoracic Echocardiogram Location: OP Height: 185.42 cm Weight: 70.31 kg BSA: 1.93 m2 Heart Rate: bpm BP: 98 / 56 mmHg Office Coordinator: ANNI Referring MD: Jasmine Dupree ROOF PANEL HANGERMiri Symptoms: I42.8 - Other cardiomyopathies Study Quality: Adequate with contrast ECG Rhythm: Sinus Conclusions: - The left ventricular systolic function is severely decreased. The calculated ejection fraction is 19% by biplane method. Findings Procedure Information Contrast agent, definity, is being given per protocol without apparent complications. Left Ventricle Severely increased left ventricular cavity size. The left ventricular systolic function is severely decreased. The calculated ejection fraction is 19% by biplane method. There is severe global hypokinesis. No evidence of thrombus. Venous The inferior vena cava is normal in size and collapses greater than 50% with inspiration. Prior Study Comparison Changes noted compared to prior study dated: 10/14/2022. Slight LVEF improvement. Measurements 2D Linear Measurements IVSd: 0.56 0.6-0.9/0.6-1.0 cm LVIDd: 6.99 3.9-5.3/4.2-5.9 cm LVIDd Index: 3.62 2.4-3.2/2.2-3.1 cm/m2 LVIDs: 5.82 2.0-3.6 cm LVPWd: 1.12 0.7-1.1 cm LA Diam: 4.10 2.7-3.8/3.0-4.0 cm LAIDs Index: 2.12 1.5-2.3 cm/m2 LV Mass: 321.65 67-162/88-224 g LV Mass Index: 166.66 43-95/49-115 g/m2 LVOT Diam: 2.20 3.0+(-)1.3 cm 2D Systolic Function EF 4C: 19.00 >55% EF 2C: 18.90 >55% EF BiP: 19.30 >55% LVOT LVOT Pk Josh: 0.76 LVOT Mn Josh: 0.49 LVOT VTI: 0.16 LVOT Pk Grad: 2.00 LVOT Mn Grad: 1.00 LVOT Diam: 2.20 LVOT Area: 3.80 Tricuspid Valve RA Press: 3.00 Updated in Other Vendor System with Status of Final Shar Elizabeth MD electronically signed on 04/28/2023 4:15:26 PM with status of Final
== END ==
LOC: HO.CARD 09:04
PROVIDERS: PCP Internal Medicine; Visit Provider Nurse Practitioner Family
DX: I42.8 Other cardiomyopathies (principal)
CPT/HCPCS: 93308; Q9957

== ENCOUNTER → 2023-04-28 09:09 | Outpatient (BNV) | payer MEDICAID, SELFPAY | PROVIDERS: PCP Internal Medicine; Visit Provider Internal Medicine | DX: I42.8 Other cardiomyopathies (principal) | CPT/HCPCS: 93308 ==

== ENCOUNTER 2023-05-04 11:49 | Outpatient (REF) | payer MEDICAID, SELFPAY ==
[2023-05-04 13:28] LABS: MANUAL DIFF FLAG NO
[2023-05-04 13:50] LABS: Basophils Absolute Auto 0.1 X10*3/uL (0.0-0.2); Eosinophils Absolute Auto 0.4 X10*3/uL (0.0-0.4); Eosinophils Percent Auto 3.8 % (0-4); Hemoglobin 13.2 g/dl (14.0-18.0); Imm Gran Abs Auto 0.03 X10*3/uL (0.00-0.03); Imm Gran Pct Auto 0.3 % (0.0-0.4); Lymphocytes Absolute Auto 2.1 X10*3/uL (1.2-4.9); Lymphocytes Percent Auto 19.6 % (20-40); Mean Corpuscular HGB Conc 32.2 g/dl (31.0-36.0); Mean Corpuscular Hemoglobin 29.3 pg (27.0-33.0); Mean Corpuscular Volume 91.1 fL (80.0-98.0); Mean Platelet Volume 9.7 fL (9.4-12.4); Monocytes Absolute Auto 0.9 X10*3/uL (0.1-1.2); Monocytes Percent Auto 8.9 % (2-11); Neutrophils Absolute Auto 6.9 x10*3/uL (2.0-8.3); Neutrophils Percent Auto 66.4 % (45-73); Platelet Count 388 X10*3/uL (160-400); Red Cell Distribution Width 13.2 % (11.0-16.0); White Blood Count 10.4 X10*3/uL (4.8-10.8)
[2023-05-04 14:35] LABS: Alanine Aminotransferase 32 U/L (0-40); Albumin Level 3.9 g/dL (3.5-5.0); Alkaline Phosphatase 86 U/L (39-117); Anion Gap 14 (12-20); Aspartate Amino Transferase 26 U/L (5-37); Bilirubin Total 0.5 mg/dL (0.0-1.0); Blood Urea Nitrogen 22 mg/dL (9-16); Calcium 9.8 mg/dL (8.4-10.2); Carbon Dioxide 25 mmol/L (22-29); Chloride 107 mmol/L (96-108); Estimated Glomerular Filt Rate 59; Glucose Random 97 mg/dL (60-115); Iron 63 mcg/dL (45-160); Percent Iron Saturation 23 % (15-50); Potassium 4.5 mmol/L (3.3-5.1); Sodium 141 mmol/L (135-145); Total Iron Binding Capacity 272 mcg/dL (228-428); Total Protein 7.2 g/dL (6.5-8.0); Unsaturated Iron Binding 209 ug/dL
== END 2023-05-04 11:50 | disposition home or self-care (01) ==
LOC: HO.10HDL 11:49
PROVIDERS: Visit Provider Internal Medicine
DX: I42.9 Cardiomyopathy, unspecified (principal); N18.9 Chronic kidney disease, unspecified; D64.9 Anemia, unspecified
CPT/HCPCS: 36415; 80053; 83540; 85025

== ENCOUNTER 2023-07-06 14:40 | Outpatient (AMB) | payer MEDICAID, SELFPAY ==
[2023-07-06 14:56] VITALS: BP 120/62; PULSE 69; BMI 18.8
--- NOTE | 2023-07-06 14:56 | A.OFFVIS_ITS ---
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 Today he reports that he has cut down his substance abuse but has not entirely stopped. He plans to start a Suboxone program after the of the year. He says he has been feeling generally well with no chest discomfort, shortness of breath, palpitations, presyncope, syncope, PND, orthopnea or edema. He has good activity tolerance. He has been taking Entresto and Lasix as directed. [facility] Medical History No pertinent past medical history Surgical History Hx of cardiac cath Family History Father Diabetes Mother Diabetes Social History Household Members: Significant Other Housing: Apartment Do you presently have visiting nurse or other home services: No Alcohol intake: never Patient Tobacco Use Status: Never used Tobacco e-Cigarette/Vaping Use: Currently Using service: No Current occupational status: unemployed Review of Systems Const All systems reviewed & are unremarkable except as noted in HPI and below ENT Denies dizziness Card Denies chest pain, Denies chest pain at rest, Denies chest pain with activity, Denies rapid heart rate, Denies pedal edema, Denies edema, Denies leg edema, Denies lightheadedness, Denies palpitations, Denies dyspnea, Denies dyspnea on exertion and Denies orthopnea Resp Denies cough, Denies dyspnea and Denies dyspnea on exertion GI Denies hematochezia and Denies change in stool character Musc Denies abnormal gait, Denies limited range of motion, Denies muscle cramps, Denies muscle weakness, Denies numbness, Denies radiating pain into limb, Denies stiffness and Denies tingling Neuro Denies abnormal gait, Denies dizziness, Denies numbness and Denies tingling Endo Denies palpitations Physical Exam Vital Signs: Last Vital Signs Pulse 69 07/06/23 14:56 BP 120/62 07/06/23 14:56 BMI result Body Mass Index 18.8 Const General: cooperative, healthy appearing, comfortable and no acute distress Orientation/consciousness: patient oriented x3 Neck Neck: Yes normal visual inspection Resp Effort & Inspection: normal respiratory effort Auscultation: clear to auscultation bilaterally, no crackles, no rales, no rhonchi and no wheezes Cardio Jugular venous distension: no JVD Rate: regular rate Rhythm: regular rhythm Heart sounds: S1 normal heart sound present, S2 normal heart sound present, no murmurs and no rubs Neuro General: patient oriented x3 Extrem General: Yes normal to inspection Psych Appearance: grossly normal Mental Status: mental status grossly normal Speech and movement: Normal speech and movement present Assessment & Plan Assessment & Plan (1) NICM (nonischemic cardiomyopathy): Code(s): I42.8 - Other cardiomyopathies Plan: History of nonischemic cardiomyopathy. Echo from 03/14/2021 showed EF 40-45%. September 2022 [place] [facility] [place] shortness of breath and found to have acute systolic and diastolic heart failure. Echo done 10/14/2022 showing EF less than 10%, severe decrease in the RV systolic function, moderate MR, frhx-qn-wrnudocp TR, moderate pulmonary hypertension. His drug screen was positive for fentanyl and cocaine. His cardiomyopathy was felt to be related to drug use. Beta-bhargav was not instituted at that time. He was started on Entresto for neurohormonal modulation as well as Lasix. He had cardiac catheterization on 10/14/2022 showing normal coronary arteries. He continued to report drug use. Echocardiogram done 04/28/2023 shows EF now 19%. Today he states that he has been feeling well. He denies shortness of breath, edema. He does not appear fluid overloaded on examination. He says he has cut down his drug use and plans to stop on July 19 and start a Suboxone program. Informed him that by taking medications his heart may improve. Currently informed he is at risk for congestive heart failure, sudden cardiac . He is not on optimal medical therapy since he is still using cocaine. Informed him that we can treat him better if drug use is stopped. He states full understanding and reassurance that there is hope to improve his health. Vital signs look good today. Will have him continue on Entresto and Lasix. Will plan to start beta bhargav once it is known that his cocaine use has stopped. If EF then remains low ICD can be considered. Signs and symptoms of heart failure reviewed. Instructed on continuing only light physical activity. Cardiology office visit in 3 months, sooner if needed (2) Substance abuse: Code(s): F19.10 - Other psychoactive substance abuse, uncomplicated Plan: As above Plan Time spent on chart review, documentation, interview, assessment, patient counseling Coding Level of Care Code Est Pt Level 3 (35850) Diagnoses NICM (nonischemic cardiomyopathy) I42.8 Substance abuse F19.10 Time Spent (min) 24
== END 2023-07-06 15:26 | disposition home or self-care (01) ==
PROVIDERS: PCP Internal Medicine; Visit Provider Nurse Practitioner Family
DX: I42.8 Other cardiomyopathies (principal); F19.10 Other psychoactive substance abuse, uncomplicated
CPT/HCPCS: 99213

== ENCOUNTER → 2023-07-06 14:40 | Outpatient (BNVA) | payer MEDICAID, SELFPAY | PROVIDERS: PCP Internal Medicine; Visit Provider Nurse Practitioner Family | DX: I42.8 Other cardiomyopathies (principal); F19.10 Other psychoactive substance abuse, uncomplicated | CPT/HCPCS: 99212 ==

== ENCOUNTER 2023-08-26 15:06 | Outpatient (REF) | payer MEDICAID, SELFPAY ==
[2023-08-26 15:22] LABS: MANUAL DIFF FLAG NO
[2023-08-26 15:56] LABS: Basophils Absolute Auto 0.1 X10*3/uL (0.0-0.2); Basophils Percent Auto 1.2 % (0-2); Eosinophils Absolute Auto 0.7 X10*3/uL (0.0-0.4); Eosinophils Percent Auto 6.7 % (0-4); Hematocrit 35.4 % (42.0-52.0); Hemoglobin 11.6 g/dl (14.0-18.0); Imm Gran Abs Auto 0.03 X10*3/uL (0.00-0.03); Imm Gran Pct Auto 0.3 % (0.0-0.4); Lymphocytes Absolute Auto 2.6 X10*3/uL (1.2-4.9); Lymphocytes Percent Auto 24.4 % (20-40); Mean Corpuscular HGB Conc 32.8 g/dl (31.0-36.0); Mean Corpuscular Hemoglobin 28.6 pg (27.0-33.0); Mean Corpuscular Volume 87.4 fL (80.0-98.0); Mean Platelet Volume 9.6 fL (9.4-12.4); Monocytes Percent Auto 9.4 % (2-11); Neutrophils Absolute Auto 6.1 x10*3/uL (2.0-8.3); Platelet Count 397 X10*3/uL (160-400); Red Blood Count 4.05 X10*6/uL (4.60-5.80); Red Cell Distribution Width 13.8 % (11.0-16.0); White Blood Count 10.5 X10*3/uL (4.8-10.8)
[2023-08-26 16:30] LABS: B Type Natriuretic Peptide 197 pg/mL (<100)
[2023-08-26 16:32] LABS: Alanine Aminotransferase 11 U/L (0-40); Albumin Level 3.9 g/dL (3.5-5.0); Alkaline Phosphatase 86 U/L (39-117); Anion Gap 9 (12-20); Aspartate Amino Transferase 20 U/L (5-37); Bilirubin Total 0.6 mg/dL (0.0-1.0); Blood Urea Nitrogen 30 mg/dL (9-16); Calcium 9.4 mg/dL (8.4-10.2); Carbon Dioxide 26 mmol/L (22-29); Chloride 107 mmol/L (96-108); Estimated Glomerular Filt Rate 41; Glucose Random 100 mg/dL (60-115); Potassium 4.1 mmol/L (3.3-5.1); Sodium 138 mmol/L (135-145); Total Protein 6.9 g/dL (6.5-8.0)
[2023-08-26 16:43] LABS: Free T4 (Free Thyroxine) 1.04 ng/dL (0.71-1.85); Thyroid Stimulating Hormone 2.04 uIU/mL (0.32-4.0)
[2023-08-26 16:51] LABS: Vitamin B12 668 pg/mL (200-900)
== END 2023-08-26 15:07 | disposition home or self-care (01) ==
LOC: HO.LAB 15:06
PROVIDERS: PCP Internal Medicine; Visit Provider Internal Medicine
DX: R42 Dizziness and giddiness (principal); I42.9 Cardiomyopathy, unspecified
CPT/HCPCS: 36415; 80053; 82607; 83880; 84439; 84443; 85025

== ENCOUNTER → 2023-10-05 11:49 | Outpatient (BNVA) | payer MEDICAID, SELFPAY | PROVIDERS: PCP Internal Medicine; Visit Provider Nurse Practitioner Family | DX: I42.8 Other cardiomyopathies (principal); R55 Syncope and collapse; F19.10 Other psychoactive substance abuse, uncomplicated | CPT/HCPCS: 99212 ==

== ENCOUNTER 2023-10-05 14:36 | Outpatient (AMB) | payer MEDICAID, SELFPAY ==
[2023-10-05 14:48] VITALS: BP 114/84; PULSE 61; BMI 16.6
--- NOTE | 2023-10-05 14:48 | MHC.OFFVIS ---
Intake Vital Signs 10/05/23 14:48 Height 6 ft 2 in Weight 129 lb 10.109 oz BMI 16.6 BP 114/84 Blood Pressure Location Lt brachial Position Sitting Pulse 61 Pulse Source Pulse Oximeter Intake Visit Reasons: 3 mth f/up Allergies No Known Allergies [No Known Allergies*] Allergy (Verified 10/05/23 14:50) Medication List - Last Reconciled 10/05/23 by Jasmine Dupree, PULMONARY PHYSICAL THERAPIST-C furosemide 20 mg PO DAILY sacubitril-valsartan 24-26 mg (Entresto) 1 tab PO BID 90 days HPI 3 mth f/up HPI Details Sanchez is a 43-year-old male with past medical history of substance abuse, nonischemic cardiomyopathy, systolic and diastolic heart failure who presents for follow-up. Today he reports that he has not been doing great since his last visit in March. He has ongoing issues with substance abuse. He states it is up and down. He says he is taking his medications faithfully, Lasix and Entresto. Will have shortness of breath when walking distances or up hills. No chest discomfort at rest or with activity. He describes 1 episode of syncope. He states he was getting up from bed to have a drink of water and then collapsed just prior to reaching the sink. He has not able to recall further details about this situation. No recurrent syncopal or any presyncopal events. No palpitations, PND, orthopnea or edema. He says he has been issues with nausea and lack of appetite. He has lost weight. [facility] Medical History No pertinent past medical history Surgical History Hx of cardiac cath Family History Father Diabetes Mother Diabetes Social History Household Members: Significant Other Housing: Apartment Do you presently have visiting nurse or other home services: No Alcohol intake: never Patient Tobacco Use Status: Never used Tobacco e-Cigarette/Vaping Use: Currently Using service: No Current occupational status: unemployed Review of Systems Const All systems reviewed & are unremarkable except as noted in HPI and below Reports weakness and Reports weight loss ENT Denies dizziness Card Details: syncope X1 Denies chest pain, Denies chest pain at rest, Denies chest pain with activity, Denies rapid heart rate, Denies pedal edema, Denies edema, Denies leg edema, Denies lightheadedness, Denies palpitations, Denies dyspnea, Reports dyspnea on exertion and Denies orthopnea Resp Denies cough, Denies dyspnea and Reports dyspnea on exertion GI Denies hematochezia and Denies change in stool character Musc Denies abnormal gait, Denies limited range of motion, Denies muscle cramps, Denies muscle weakness, Denies numbness, Denies radiating pain into limb, Denies stiffness and Denies tingling Neuro Denies abnormal gait, Denies dizziness, Denies numbness, Denies tingling and Reports weakness Endo Denies palpitations Physical Exam Vital Signs: Last Vital Signs Pulse 61 10/05/23 14:48 BP 114/84 10/05/23 14:48 BMI result Body Mass Index 16.6 Const General: cooperative and no acute distress Nutritional Appearance: underweight Orientation/consciousness: patient oriented x3 Neck Neck: Yes normal visual inspection Resp Effort & Inspection: normal respiratory effort Auscultation: clear to auscultation bilaterally, no rales, no rhonchi and no wheezes Cardio Jugular venous distension: no JVD Rate: regular rate Rhythm: regular rhythm Heart sounds: S1 normal heart sound present, S2 normal heart sound present, no murmurs and no rubs Neuro General: patient oriented x3 Extrem General: Yes normal to inspection Psych Appearance: grossly normal Mental Status: mental status grossly normal Speech and movement: Normal speech and movement present Assessment & Plan Assessment & Plan (1) NICM (nonischemic cardiomyopathy): Code(s): I42.8 - Other cardiomyopathies Plan: History of nonischemic cardiomyopathy. Echo from 03/14/2021 showed EF 40-45%. In September 2022 he was admitted to [facility] with increasing shortness of breath and found to have acute systolic and diastolic heart failure. Echo done 10/14/2022 showing EF less than 10%, severe decrease in the RV systolic function, moderate MR, [id number] TR, moderate pulmonary hypertension. His drug screen was positive for fentanyl and cocaine. His cardiomyopathy was felt to be related to drug use. Beta-bhargav was not instituted at that time. He was started on Entresto for neurohormonal modulation as well as Lasix. He had cardiac catheterization on 10/14/2022 showing normal coronary arteries. He continued to report drug use. Echocardiogram done 04/28/2023 showed EF 19%. Today he reports shortness of breath with exertional activities, NYHA class 2 s he also describes a syncopal event after getting up out of bed which could have been orthostatic related. Arrhythmia has not been ruled out. He does not appear fluid overloaded on examination. Since his last visit here in June has lost 15 lb. He is now down to 129 lb and possibly even less as he is wearing heavy sweat shirt, sweat pants and sneakers. He has not in the Suboxone program as we discussed on last visit. He is still using drugs intermittently. Informed him that by stopping cocaine and fentanyl use and taking medications his heart may improve. Currently informed he is at risk for decompensated congestive heart failure, sudden cardiac . He is not on optimal medical therapy since he is still using cocaine. Informed him that we can treat him better if drug use is stopped. He states full understanding and reassurance that there is hope to improve his health. Will refer to nurse navigator for substance abuse help and guidance. Will have him continue on Entresto and Lasix. Will plan to start beta bhargav once it is known that his cocaine use has stopped. Then if EF remains low ICD can be considered. Will check a Holter monitor to assess for arrhythmia. Signs and symptoms of heart failure reviewed. Instructed on continuing only light physical activity. Cardiology office visit in 3 months, sooner if needed (2) Substance abuse: Code(s): F19.10 - Other psychoactive substance abuse, uncomplicated Plan: As above (3) Syncope: Code(s): R55 - Syncope and collapse Plan: Patient describes 1 episode of syncope, full details unknown. He recalls getting out of bed to get a drink of water and then collapsing prior to reaching the sink. He has been using illicit substances. His blood pressure is on the low side. He also tells me he has not been eating properly. His episode could be drug related, hypotension, general weakness. It also could be arrhythmia related as he has severe cardiomyopathy. Will check a Holter monitor for 5 days to assess for any concerning arrhythmia. He says he is going for labs today will check a magnesium, CMP. (4) Weight loss: Code(s): R63.4 - Abnormal weight loss Plan: Patient states he has not been eating properly due to intermittent nausea. He is down 15 lb since his last visit in June. He is very thin for his height, BMI 16.6. Will check a TSH. Drug use likely contributes. Plan Time spent on chart review, documentation, interview, assessment, patient counseling Orders: Orders TSH reflex Free T4 Today R63.4 - Abnormal weight loss ECG 5 day holter monitor Today F19.10 - Other psychoactive substance abuse, uncomplicated, I42.8 - Other cardiomyopathies, R55 - Syncope and collapse Referrals Nurse Navigator Referral F19.10 - Other psychoactive substance abuse, uncomplicated, I42.8 - Other cardiomyopathies Coding Level of Care Code Est Pt Level 4 (64828) Diagnoses NICM (nonischemic cardiomyopathy) I42.8 Substance abuse F19.10 Syncope R55 Weight loss R63.4 Time Spent (min) 28
== END 2023-10-05 15:13 | disposition home or self-care (01) ==
PROVIDERS: PCP Internal Medicine; Visit Provider Nurse Practitioner Family
DX: I42.8 Other cardiomyopathies (principal); F19.10 Other psychoactive substance abuse, uncomplicated; R55 Syncope and collapse; R63.4 Abnormal weight loss
CPT/HCPCS: 99214

== ENCOUNTER → 2023-12-08 15:03 | Outpatient (REF) | payer MEDICAID, SELFPAY ==
--- NOTE | 2023-12-08 15:09 | HM_ITS ---
Conclusion: 1. Patient was monitored for total period of 2 days 2. Baseline was normal sinus rhythm with average heart of 108 beats per minute 3. No significant pauses noted 4. Frequent sinus tachycardia noted with 74% of time heart rate about 100 beats per minute 5. No patient reported events MTDD
== END ==
LOC: HO.CARD 15:03
PROVIDERS: PCP Internal Medicine; Visit Provider Nurse Practitioner Family
DX: R55 Syncope and collapse (principal); I42.8 Other cardiomyopathies; F19.10 Other psychoactive substance abuse, uncomplicated
CPT/HCPCS: 93225

== ENCOUNTER → 2023-12-08 15:09 | Outpatient (BNV) | payer MEDICAID, SELFPAY | PROVIDERS: PCP Internal Medicine; Visit Provider Internal Medicine Cardiovascular Disease | DX: R00.0 Tachycardia, unspecified (principal) | CPT/HCPCS: 93227 ==

== ENCOUNTER 2024-02-11 09:04 | Outpatient (AMB) | payer MEDICAID, SELFPAY ==
[2024-02-11 09:08] VITALS: BP 108/62; PULSE 104; BMI 18.0
--- NOTE | 2024-02-11 09:08 | MHC.OFFVIS ---
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 Today he reports that things have been unchanged since his last visit in September. He continues to have issues with substance abuse. He says he will use cocaine whenever he has it available, at least every other day. He says he is taking his medications faithfully, Lasix and Entresto. He has gained some weight since his last visit. He does have shortness of breath when walking distances or up hills. No chest discomfort at rest or with activity. No lightheadedness, presyncope, syncope, falls. No palpitations, PND, orthopnea or edema. He says he does have a support system outside of the office here. He says the nurse navigator did call him at least once. He is not pursuing any rehab programs at this time. He does express concern about his heart function. [facility] Medical History No pertinent past medical history Surgical History Hx of cardiac cath Family History Father Diabetes Mother Diabetes Social History Household Members: Significant Other Housing: Apartment Do you presently have visiting nurse or other home services: No Alcohol intake: never Patient Tobacco Use Status: Never used Tobacco e-Cigarette/Vaping Use: Currently Using service: No Current occupational status: unemployed Review of Systems Const All systems reviewed & are unremarkable except as noted in HPI and below ENT Denies dizziness Card Denies chest pain, Denies chest pain at rest, Denies chest pain with activity, Denies rapid heart rate, Denies pedal edema, Denies edema, Denies leg edema, Denies lightheadedness, Denies palpitations, Denies dyspnea, Denies dyspnea on exertion and Denies orthopnea Resp Denies cough, Denies dyspnea and Denies dyspnea on exertion GI Denies hematochezia and Denies change in stool character Musc Denies abnormal gait, Denies limited range of motion, Denies muscle cramps, Denies muscle weakness, Denies numbness, Denies radiating pain into limb, Denies stiffness and Denies tingling Neuro Denies abnormal gait, Denies dizziness, Denies numbness and Denies tingling Endo Denies palpitations Physical Exam Const General: cooperative and no acute distress Nutritional Appearance: underweight Orientation/consciousness: patient oriented x3 Neck Neck: Yes normal visual inspection Resp Effort & Inspection: normal respiratory effort Auscultation: clear to auscultation bilaterally, no rales, no rhonchi and no wheezes Cardio Jugular venous distension: no JVD Rate: regular rate Rhythm: regular rhythm Heart sounds: S1 normal heart sound present, S2 normal heart sound present, no murmurs and no rubs Neuro General: patient oriented x3 Extrem General: Yes normal to inspection Psych Appearance: grossly normal Mental Status: mental status grossly normal Speech and movement: Normal speech and movement present Office Procedures EKG Details: Today, read by me, normal sinus rhythm, right atrial enlargement, LVH with repolarization abnormality, QTC 410 milliseconds, rate 97 [id number], Complete Assessment & Plan Assessment & Plan (1) NICM (nonischemic cardiomyopathy): Code(s): I42.8 - Other cardiomyopathies Category: Medical Plan: History of nonischemic cardiomyopathy. EF has been as low as 10%, 09/2022. Most recent echo 04/28/2023 showed EF 19%. He has had ongoing issues with substance abuse and admits to cocaine use most days, whenever he has it available. He has been taking Lasix and Entresto as directed. Was not put on beta-bhargav due to cocaine use. On last visit he did report a syncopal type event. A Holter monitor was done 12/08/2023 for 2 days showing sinus rhythm with average heart rate 108, 74% of time greater than 100. He was no-show for the last 2 followups. Today he reports that his overall condition is unchanged. He does have some shortness of breath wth exertional activities, NYHA class 2. He has not had any recurrent syncopal events. Since last visit in September he has gained 11 lb, likely from eating better. He still remains very thin with a BMI of 18. It does not appear to have decompensated heart failure on examination. EKG today shows normal sinus rhythm with right atrial enlargement, LVH with repolarization abnormality, rate 97. I have reached out to nurse navigator on prior visit. Patient states that they did call him at least once. He is not interested in a rehab program at this time. He tells me he does have a support system outside of this office. He says he will continue to work on reducing substance abuse. Will have him update labs today. Will cancel previously ordered drug screen as he readily admits to ongoing drug use. If he is able to stop cocaine use then beta-bhargav can be used. Informed him that with his reduced EF he is at high risk for sudden cardiac , arrhythmia, decompensated heart failure. As long as he is actively using substances he is not a good candidate for ICD placement. Discuss this with him and he states understanding. Cardiology follow-up in 3 months, sooner if needed. (2) Substance abuse: Code(s): F19.10 - Other psychoactive substance abuse, uncomplicated Category: Medical Plan: As above (3) Weight loss: Code(s): R63.4 - Abnormal weight loss Category: Medical Plan: Patient previously reported that he does not eat properly due to intermittent nausea. He has been able to gain some weight and is up 11 lb since last visit in September. He remains very thin for his height with BMI 18. Will check a TSH. Drug use likely contributes. Plan Time spent on chart review, documentation, interview, assessment, patient counseling Coding Level of Care Code Est Pt Level 4 (30588) Diagnoses NICM (nonischemic cardiomyopathy) I42.8 Substance abuse F19.10 Weight loss R63.4 CPT Codes EKG - CPT: 10905-[id number], Complete ([id number]) Time Spent (min) 30
== END 2024-02-11 09:29 | disposition home or self-care (01) ==
PROVIDERS: PCP Internal Medicine; Visit Provider Nurse Practitioner Family
DX: I42.8 Other cardiomyopathies (principal); F19.10 Other psychoactive substance abuse, uncomplicated; R63.4 Abnormal weight loss
CPT/HCPCS: 93010; 99214

== ENCOUNTER 2024-02-11 09:04 | Outpatient (REF) | payer MEDICAID, SELFPAY ==
[2024-02-11 11:21] LABS: Alanine Aminotransferase 79 U/L (0-40); Albumin Level 4.3 g/dL (3.5-5.0); Alkaline Phosphatase 107 U/L (39-117); Anion Gap 11 (12-20); Aspartate Amino Transferase 75 U/L (5-37); Bilirubin Total 0.5 mg/dL (0.0-1.0); Blood Urea Nitrogen 35 mg/dL (9-16); Calcium 9.5 mg/dL (8.4-10.2); Carbon Dioxide 28 mmol/L (22-29); Chloride 106 mmol/L (96-108); Estimated Glomerular Filt Rate 42; Glucose Random 96 mg/dL (60-115); Magnesium 2.3 mg/dL (1.6-2.6); Potassium 4.3 mmol/L (3.3-5.1); Sodium 141 mmol/L (135-145); TSH reflex Free T4 1.58 uIU/mL (0.32-4.0); Total Protein 7.4 g/dL (6.5-8.0)
== END 2024-02-11 09:05 | disposition home or self-care (01) ==
LOC: HO.LAB 09:04
PROVIDERS: PCP Internal Medicine; Visit Provider Nurse Practitioner Family
DX: I42.8 Other cardiomyopathies (principal); R63.4 Abnormal weight loss; F19.10 Other psychoactive substance abuse, uncomplicated; R94.31 Abnormal electrocardiogram [ECG] [EKG]
CPT/HCPCS: 36415; 80053; 83735; 84443; 93005; 99212

== ENCOUNTER 2024-05-11 13:37 | Outpatient (AMB) | payer MEDICAID, SELFPAY ==
[2024-05-11 13:41] VITALS: BP 114/72; PULSE 102; BMI 18.5
--- NOTE | 2024-05-11 13:41 | A.OFFVIS_ITS ---
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 Today he reports that things have been unchanged since his last visit in January. He continues to have issues with substance abuse and states he was supposed to call about going into detox today but he did not get to do it. He will call them on Wednesday, 4 days from now. He says he will use cocaine whenever he has it available, at least every other day. He says he is taking his medications faithfully, Lasix and Entresto. Low-dose carvedilol was ordered on last visit but he did not start it because he said he did not get it from the pharmacy. He has gained a few lb since his last visit. He continues to have shortness of breath when walking distances or up hills, especially if carrying something. No chest discomfort at rest or with activity. No lightheadedness, presyncope, syncope, falls. No palpitations, PND, orthopnea or edema. His is present at this visit. [facility] Medical History No pertinent past medical history Surgical History Hx of cardiac cath Family History Father Diabetes Mother Diabetes Social History Household Members: Significant Other Housing: Apartment Do you presently have visiting nurse or other home services: No Alcohol intake: never Patient Tobacco Use Status: Never used Tobacco e-Cigarette/Vaping Use: Currently Using service: No Current occupational status: unemployed Review of Systems Const All systems reviewed & are unremarkable except as noted in HPI and below ENT Denies dizziness Card Denies chest pain, Denies chest pain at rest, Denies chest pain with activity, Denies rapid heart rate, Denies pedal edema, Denies edema, Denies leg edema, D enies lightheadedness, Denies palpitations, Denies dyspnea, Reports dyspnea on exertion (if he is carrying items while walking) and Denies orthopnea Resp Denies cough, Denies dyspnea and Reports dyspnea on exertion (if he is carrying items while walking) GI Denies hematochezia and Denies change in stool character Musc Denies abnormal gait, Denies limited range of motion, Denies muscle cramps, Denies muscle weakness, Denies numbness, Denies radiating pain into limb, Denies stiffness and Denies tingling Neuro Denies abnormal gait, Denies dizziness, Denies numbness and Denies tingling Endo Denies palpitations Physical Exam Vital Signs: Last Vital Signs Pulse 102 H 05/11/24 13:41 BP 114/72 05/11/24 13:41 BMI result Body Mass Index 18.5 Const General: cooperative and no acute distress Nutritional Appearance: underweight Orientation/consciousness: patient oriented x3 Neck Neck: Yes normal visual inspection Resp Effort & Inspection: normal respiratory effort Auscultation: clear to auscultation bilaterally, no rales, no rhonchi and no wheezes Cardio Jugular venous distension: no JVD Rate: regular rate Rhythm: regular rhythm Heart sounds: S1 normal heart sound present, S2 normal heart sound present, no murmurs and no rubs Neuro General: patient oriented x3 Extrem General: Yes normal to inspection Psych Appearance: grossly normal Mental Status: mental status grossly normal Speech and movement: Normal speech and movement present Assessment & Plan Assessment & Plan (1) NICM (nonischemic cardiomyopathy): Code(s): I42.8 - Other cardiomyopathies Category: Medical Plan: History of nonischemic cardiomyopathy. EF has been as low as 10%, 09/2022. Most recent echo 04/28/2023 showed EF 19%. He has had ongoing issues with substance abuse and admits to cocaine use most days, whenever he has it available. He has been taking Lasix and Entresto as directed. He previously r eported a syncopal type event. A Holter monitor was done 12/08/2023 for 2 days showing sinus rhythm with average heart rate 108, 74% of time greater than 100. He was then no-show for the last 2 followups. On last visit he reported some shortness of breath wth exertional activities, NYHA class 2, no recurrent syncopal events. We initially avoided beta bhargav use on him however due to a finding sinus tachycardia with high burden on Holter monitor low-dose carvedilol was ordered last visit in order to attempt to slow his heart and improve EF. He was informed there was a risk with cocaine use and that he should stop. Today he reports that he never picked up carvedilol from the pharmacy. Continues to have shortness of breath with exertional activities. No recurrent syncope and no chest discomfort. He does not appear fluid overloaded on examination. He still remains very thin with a BMI of 18.5. He continues to admit to substance abuse. He says he will be going into a detox when he calls them on Wednesday. Informed him that with his reduced EF he is still at high risk for sudden cardiac , arrhythmia, decompensated heart failure. As long as he is actively using substances he is not a good candidate for ICD placement. Discuss this with him and he states understanding. is present at this visit which is encouraging to see. The fact that he is considering detox is also encouraging. Continue Lasix, Entresto, start carvedilol. Cardiology follow-up in 4 months, sooner if needed. (2) Substance abuse: Code(s): F19.10 - Other psychoactive substance abuse, uncomplicated Category: Medical Plan: As above (3) Weight loss: Code(s): R63.4 - Abnormal weight loss Category: Medical Plan: Patient previously reported that he does not eat properly due to intermittent nausea. He has been able to gain some weight and is up 14 lb since last visit in September. He remains very thin for his height with BMI 18.5 TSH 1.58 on 02/11/2024. Tells me that he is eating good. Drug use likely contributes. Plan Time spent on chart review, documentation, interview, assessment, patient counseling Medications: Refilled carvedilol must administer with a meal/food 3.125 mg PO BID 60 tabs 4RF Coding Level of Care Code Est Pt Level 4 (17782) Complex EM visit Add On G2211 Diagnoses NICM (nonischemic cardiomyopathy) I42.8 Substance abuse F19.10 Weight loss R63.4 Time Spent (min) 28
== END 2024-05-11 13:59 | disposition home or self-care (01) ==
PROVIDERS: PCP Internal Medicine; Visit Provider Nurse Practitioner Family
DX: I42.8 Other cardiomyopathies (principal); F19.10 Other psychoactive substance abuse, uncomplicated; R63.4 Abnormal weight loss
CPT/HCPCS: 99214

== ENCOUNTER → 2024-05-11 13:37 | Outpatient (BNVA) | payer MEDICAID, SELFPAY | PROVIDERS: PCP Internal Medicine; Visit Provider Nurse Practitioner Family | DX: I42.8 Other cardiomyopathies (principal); I50.40 Unspecified combined systolic (congestive) and diastolic (congestive) heart failure; F14.10 Cocaine abuse, uncomplicated; R63.4 Abnormal weight loss | CPT/HCPCS: 99212 ==

== ENCOUNTER 2024-08-31 14:38 | Outpatient (AMB) | payer MEDICAID, SELFPAY ==
[2024-08-31 14:57] VITALS: BP 90/50; PULSE 96; BMI 19.1
--- NOTE | 2024-08-31 14:57 | A.OFFVIS_ITS ---
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 Today he reports that things have been improving since his last visit in April. He recently started in the Methadone program and he feels this is helping him to avoid other substance use. He says he is taking his medications faithfully, Lasix, carvedilol and Entresto. He has gained a few more lb since his last visit. He continues to have mild shortness of breath when walking distances or up hills, especially if carrying something. No chest discomfort at rest or with activity. No lightheadedness, presyncope, syncope, falls. No palpitations, PND, orthopnea or edema. His is present at this visit. [facility] Medical History No pertinent past medical history Surgical History Hx of cardiac cath Family History Father Diabetes Mother Diabetes Social History Household Members: Significant Other Housing: Apartment Do you presently have visiting nurse or other home services: No Alcohol intake: never Patient Tobacco Use Status: Never used Tobacco e-Cigarette/Vaping Use: Currently Using service: No Current occupational status: unemployed Review of Systems Const All systems reviewed & are unremarkable except as noted in HPI and below ENT Denies dizziness Card Denies chest pain, Denies chest pain at rest, Denies chest pain with activity, Denies rapid heart rate, Denies pedal edema, Denies edema, Denies leg edema, Denies lightheadedness, Denies palpitations, Denies dyspnea, Denies dyspnea on exertion and Denies orthopnea Resp Denies cough, Denies dyspnea and Denies dyspnea on exertion GI Denies hematochezia and Denies change in stool character Musc Denies abnormal gait, Denies limited range of motion, Denies muscle cramps, Denies muscle weakness, Denies numbness, Denies radiating pain into limb, Denies stiffness and Denies tingling Neuro Denies abnormal gait, Denies dizziness, Denies numbness and Denies tingling Endo Denies palpitations Physical Exam Const General: cooperative, healthy appearing, comfortable and no acute distress Orientation/consciousness: patient oriented x3 Neck Neck: Yes normal visual inspection Resp Effort & Inspection: normal respiratory effort Auscultation: clear to auscultation bilaterally, no crackles, no rales, no rhonchi and no wheezes Cardio Rate: regular rate Rhythm: regular rhythm Heart sounds: S1 normal heart sound present, S2 normal heart sound present, no murmurs and no rubs Neuro General: patient oriented x3 Extrem General: Yes normal to inspection, No no pedal edema and No calf tenderness Psych Appearance: grossly normal Mental Status: mental status grossly normal Speech and movement: Normal speech and movement present Assessment & Plan Assessment & Plan (1) NICM (nonischemic cardiomyopathy): Code(s): I42.8 - Other cardiomyopathies Category: Medical Plan: History of nonischemic cardiomyopathy. EF has been as low as 10%, 09/2022. Most recent echo 04/28/2023 showed EF 19%. He has had ongoing issues with substance abuse and started in a Methadone program 2 weeks ago. He has been taking Lasix, carvedilol and Entresto as directed. A Holter monitor was done 12/08/2023 for 2 days showing sinus rhythm with average heart rate 108, 74% of time greater than 100. Today he reports he has been doing generally well. He does have sob with exertional activities which is not new. No chest pains, palpitations, or lightheadedness. NYHA class 2. No recent syncopal events. He does not appear fluid overloaded on examination. He has gained some weight which is a positive for him. BMI is now 19.1. Informed him that with his reduced EF he is still at high risk for sudden cardiac , arrhythmia, decompensated heart failure. As long as he is actively using substances he is not a good candidate for ICD placement. Discuss this with him and he states understanding. labs 02/11/24 showed K 4.3, Cr 1.75. Intiial BP 90/50, recheck done by me 96/52, asymptomatic. Reviewed good hydration. Continue Lasix, Entresto, start carvedilol. Cardiology follow-up in 6 months, sooner if needed. (2) Substance abuse: Code(s): F19.10 - Other psychoactive substance abuse, uncomplicated Category: Medical Plan: As above Plan Time spent on chart review, documentation, interview, assessment, patient counseling Coding Level of Care Code Est Pt Level 4 (50866) Complex EM visit Add On G2211 Diagnoses NICM (nonischemic cardiomyopathy) I42.8 Substance abuse F19.10 Time Spent (min) 30
--- OUTSIDE RECORDS SUMMARY | 2024-08-31 14:58 | XMS_ITS | Clinical Summary ---
Author Organization [facility] Address [address] [place] [address] Phone Care Team Providers Care Environmental Compliance Officer Name Role Phone Unavailable Primary Care Provider Unavailabl e Encounters Date Type Department Care Team Description 08/22/2024 Lab Requisition [facility] - Main Lab [address] [facility] [place] [address] Marisela Piedra MD Opioid dependence, uncomplicated (CMS/HCC) from Last 3 Months Social History Tobacco Use Types Packs/Day Years Used Date Smoking Tobacco: Never Assessed Sex and Gender Information Value Date Recorded Sex Assigned at Not on file Legal Sex Male 5:41 AM EST Gender Identity Not on file Sexual Orientation Not on file Plan of Treatment Health Maintenance Due Date Last Done Comments DTaP,Tdap,and Td Vaccines (1 - Tdap) 1997 Hepatitis B Vaccines (1 of 3 - 19+ 3-dose series) 1997 COVID-19 Vaccine (2023-2 5 season) 2024 Influenza Vaccine (#1) 2024 Cholesterol Screening (Lipid Panel) 08/23/2024 Colorectal Cancer Screening: Colonoscopy 08/23/2024 Depression Screening 08/23/2024 Social Influencers of Health Screening 08/23/2024 HIV Screening Completed 08/22/2024 Hepatitis C Screening Completed 08/22/2024 HIB Vaccines Aged Out No longer eligi ble based on patient's age to complete this topic HPV Vaccines Aged Out No longer eligi ble based on patient's age to complete this topic Hepatitis A Vaccines Aged Out No long er eligible based on patient's age to complete this topic IPV Vaccines Aged Out No longer eligi ble based on patient's age to complete this topic MMR Vaccines Aged Out No longer eligi ble based on patient's age to complete this topic Meningococcal ACWY Vaccine Aged Out N o longer eligible based on patient's age to complete this topic Meningococcal B Vacine Aged Out No lo nger eligible based on patient's age to complete this topic Pneumococcal Vaccine: Pediat rics (0 to 5 Years) and At-Risk Patients (6 to 64 Years) Aged Out No longer eligi ble based on patient's age to complete this topic RSV Immunization Patients Un serafin 20 months Aged Out No longer eligible b ased on patient's age to complete this topic Varicella Vaccines Aged Out No longer eligible based on patient's age to complete this topic Procedures Procedure Name Priority Date/Time Associated Diagnosis Comments HEPATITIS B CORE ANTIBODY, TOTAL Routine 08/22/2024 8:20 AM EST Opioid dependence, uncomplicated (CMS/HCC) HEPATITIS C ANTIBODY Routine 08/22/2024 8:20 AM EST Opioid dependence, uncomplicated (CMS/HCC) HEPATITIS A ANTIBODY TOTAL WITH REFLEX IGM Routine 08/22/2024 8:20 AM EST Opioid dependence, uncomplicated (CMS/HCC) HIV 1, 2 ANTIBODY, P24 ANTIGEN WITH REFLEX TO DIFFERENTIATION Routine 08/22/2024 8:20 AM EST Opioid dependence, uncomplicated (CMS/HCC) HEPATITIS B SURFACE ANTIGEN WITH CONFIRMATION Routine 08/22/2024 8:20 AM EST Opioid dependence, uncomplicated (CMS/HCC) HEPATITIS B SURFACE ANTIBODY Routine 08/22/2024 8:20 AM EST Opioid dependence, uncomplicated (CMS/HCC) TREPONEMA PALLIDUM ANTIBODY WITH REFLEX TO RPR AND PARTICLE AGGLUTINATION Routine 08/22/2024 8:20 AM EST Opioid dependence, uncomplicated (CMS/HCC) COMPREHENSIVE METABOLIC PANEL Routine 08/22/2024 8:20 AM EST Opioid dependence, uncomplicated (CMS/HCC) COMPLETE BLOOD COUNT Routine 08/22/2024 8:20 AM EST Opioid dependence, uncomplicated (CMS/HCC) from Last 3 Months Results * Hepatitis C antibody (08/22/2024 8:20 AM EST) Pathologist [facility] Hepatitis C Antibody Negative Negative LAB CHEMISTRY METHOD 08/22/2024 4:32 PM EST [facility] Blood Venous blood specimen / Unknown 08/22/2024 8:20 AM EST 08/22/2024 3:08 PM EST Marisela Piedra MD LAB BLOOD ORDERABLES Fi nal Result Performing Organization Address [facility]/ZIP Co de Phone Number [facility] [address] [place] [address], [place] [phone] * HIV 1,2 antibody, p24 antigen with reflex to differentiation (08/22/2024 8:20 AM EST) [facility] HIV Combo AB/AG Negative Negative LAB CHEMISTRY METHOD 08/22/2024 4:33 PM EST [facility] Blood Venous blood specimen / Unknown 08/22/2024 8:20 AM EST 08/22/2024 3:08 PM EST Narrative [facility] - 08/22/2024 4:33 PM EST This assay is a 4th generation assay allowing for earlier detection of HIV infection by detecting the presence of the HIV-1 p24 antigen as well as the traditional antibodies to HIV type 1 (including group O) and type 2. ??Use of a 4th generation assay is the current CDC recommendation for HIV screening. Marisela Piedra MD LAB BLOOD ORDERABLES Fi nal Result Performing Organization Address City/[facility]/ZIP Co de Phone Number [facility] [address] [place] [address], [place] [phone] * Hepatitis B surface antigen with reflex to confirmation (08/22/2024 8:20 AM EST) [facility] Hepatitis B Surface Ag Negative Negative LAB CHEMISTRY METHOD 08/22/2024 4:04 PM EST [facility] Blood Venous blood specimen / Unknown 08/22/2024 8:20 AM EST 08/22/2024 3:08 PM EST [facility] - 08/22/2024 4:04 PM EST Over the counter supplements containing high doses of biotin may interfere with this assay. ??If interference is suspected, patients shoud be retested after refraining from biotin supplements for 72 hours. Marisela Piedra MD LAB BLOOD ORDERABLES Fi nal Result Performing Organization Address [facility] Co de Phone Number [facility] [address] [place] [address], [place] [phone] * Treponema pallidum antibody with reflex to RPR and particle agglutination (08/22/2024 8:20 AM EST) T. Pallidum Antibodies Negative Negative LAB CHEMISTRY METHOD 08/22/2024 4:03 PM EST [facility] Blood Venous blood specimen / Unknown 08/22/2024 8:20 AM EST 08/22/2024 3:08 PM EST Marisela Piedra MD LAB BLOOD ORDERABLES Fi nal Result Performing Organization Address [facility] Co de Phone Number [facility] [address] [place] [address], [place] [phone] * Hepatitis A antibody total with reflex IgM (08/22/2024 8:20 AM EST) Hep A Total Ab Negative Negative LAB CHEMISTRY METHOD 08/22/2024 4:38 PM EST [facility] Blood Venous blood specimen / Unknown 08/22/2024 8:20 AM EST 08/22/2024 3:08 PM EST [facility] - 08/22/2024 4:38 PM EST Over the counter supplements containing high doses of biotin may interfere with this assay. ??If interference is suspected, patients shoud be retested after refraining from biotin supplements for 72 hours. us Marisela Piedra MD LAB BLOOD ORDERABLES Fi nal Result Performing Organization Address [facility]/ZIP Co de Phone Number [facility] [address] [place] [address], [place] [phone] * Hepatitis B core antibody, total (08/22/2024 8:20 AM EST) Pathologist [facility] Hep B Core Total Ab Negative Negative LAB CHEMISTRY METHOD 08/22/2024 4:39 PM EST [facility] Blood Venous blood specimen / Unknown 08/22/2024 8:20 AM EST 08/22/2024 3:08 PM EST Marisela Piedra MD LAB BLOOD ORDERABLES Fi nal Result Performing Organization Address [facility] de Phone Number [facility] [address] [place] [address], [place] [phone] * Hepatitis B surface antibody (08/22/2024 8:20 AM EST) [facility] Hepatitis B Surface Ab Negative Negative LAB CHEMISTRY METHOD 08/22/2024 3:53 PM EST [facility] Hepatitis B Surface Ab Quantitative <3.1 mIU/mL LAB CHEMISTRY METHOD 08/22/2024 3:53 PM EST [facility] Blood Venous blood specimen / Unknown 08/22/2024 8:20 AM EST 08/22/2024 3:08 PM EST Narrative [facility] - 08/22/2024 3:53 PM EST >=10 mIU/mL is considered to be consistent with immunity. us Marisela Piedra MD LAB BLOOD ORDERABLES Fi nal Result Performing Organization Address [facility] Co de Phone Number [facility] [address] [place] [address], * (ABNORMAL) Complete blood count (08/22/2024 8:20 AM EST) [facility] WBC 11.0(H) 4.8 - 10.8 K/mcL LAB HEMETOLOGY METHOD 08/22/2024 3:23 PM [facility] RBC 5.10 4.50 - 5.50 M/mcL LAB HEMETOLOGY METHOD 08/22/2024 3:23 PM [facility] Hemoglobin 14.3 13.5 - 17.5 g/dL LAB HEMETOLOGY METHOD 08/22/2024 3:23 PM [facility] Hematocrit 45.4 42.0 - 54.0 % LAB HEMETOLOGY METHOD 08/22/2024 3:23 PM [facility] MCV 88.5 79.0 - 98.0 FL LAB HEMETOLOGY METHOD 08/22/2024 3:23 PM [facility] MCH 27.9 27.0 - 32.0 pcg LAB HEMETOLOGY METHOD 08/22/2024 3:23 PM [facility] MCHC 31.5(L) 32.0 - 37.0 g/dL LAB HEMETOLOGY METHOD 08/22/2024 3:23 PM [facility] RDW 13.6 11.0 - 15.0 % LAB HEMETOLOGY METHOD 08/22/2024 3:23 PM [facility] Platelets 356 130 - 400 K/mcL LAB HEMETOLOGY METHOD 08/22/2024 3:23 PM [facility] MPV 10.7 7.0 - 11.0 FL LAB HEMETOLOGY METHOD 08/22/2024 3:23 PM [facility] NRBC 0.0 <1.0 % LAB HEMETOLOGY METHOD 08/22/2024 3:23 PM [facility] NRBC Absolute 0.00 <0.10 K/mcL LAB HEMETOLOGY METHOD 08/22/2024 3:23 PM EST [facility] Blood Venous blood specimen / Unknown 08/22/2024 8:20 AM EST 08/22/2024 3:08 PM EST us Marisela Piedra MD LAB BLOOD ORDERABLES Fi nal Result [facility] [address] [place] [address], [place] [phone] * (ABNORMAL) Comprehensive metabolic panel (08/22/2024 8:20 AM EST) Sodium 137 133 - 145 mmol/L LAB CHEMISTRY METHOD 08/22/2024 3:45 PM [facility] Potassium 5.3 3.5 - 5.5 mmol/L LAB CHEMISTRY METHOD 08/22/2024 3:45 PM [facility] Chloride 105 96 - 110 mmol/L LAB CHEMISTRY METHOD 08/22/2024 3:45 PM [facility] CO2 29 21 - 32 mmol/L LAB CHEMISTRY METHOD 08/22/2024 3:45 PM [facility] Anion Gap 3 3 - 11 LAB CHEMISTRY METHOD 08/22/2024 3:45 PM [facility] Glucose 82 70 - 100 mg/dL LAB CHEMISTRY METHOD 08/22/2024 3:45 PM [facility] BUN 21 5 - 25 mg/dL LAB CHEMISTRY METHOD 08/22/2024 3:45 PM [facility] Creatinine 1.48(H) 0.70 - 1.30 mg/dL LAB CHEMISTRY METHOD 08/22/2024 3:45 PM [facility] eGFR 59(L) >=60 mL/min/1. 73m2 LAB CHEMISTRY METHOD 08/22/2024 3:45 PM [facility] Comment:Calculation based on the??Chronic Kidney Disease Epidemiology Collaboration (CKD-EPI) equation refit??without adjustment for race. BUN/Creatinine Ratio 14.2 LAB CHEMISTRY METHOD 08/22/2024 3:45 PM [facility] Calcium 9.7 8.5 - 10.5 mg/dL LAB CHEMISTRY METHOD 08/22/2024 3:45 PM [facility] AST (SGOT) 25 10 - 42 unit/L LAB CHEMISTRY METHOD 08/22/2024 3:45 PM [facility] ALT (SGPT) 28 10 - 60 unit/L LAB CHEMISTRY METHOD 08/22/2024 3:45 PM [facility] Alkaline Phosphatase 115 42 - 121 unit/L LAB CHEMISTRY METHOD 08/22/2024 3:45 PM [facility] Total Protein 7.2 6.0 - 8.0 g/dL LAB CHEMISTRY METHOD 08/22/2024 3:45 PM [facility] Albumin 3.6 3.2 - 5.0 g/dL LAB CHEMISTRY METHOD 08/22/2024 3:45 PM [facility] Total Bilirubin 0.5 0.0 - 1.4 mg/dL LAB CHEMISTRY METHOD 08/22/2024 3:45 PM [facility] Blood Venous blood specimen / Unknown 08/22/2024 8:20 AM EST 08/22/2024 3:08 PM EST us Marisela Piedra MD LAB BLOOD ORDERABLES Fi nal Result [facility] [address] [place] [address], from Last 3 Months Insurance [address] [place] [address] MEDICAID - [place]
--- OUTSIDE RECORDS SUMMARY | 2024-08-31 14:58 | XMS_ITS | Clinical Summary ---
Author Organization [employer] Address [address] [facility] [address] [place] [address] Care Team Providers Care Pullboat Engineer Name Role Phone Unavailable Primary Care Provider Unavailabl e Immunizations Name Administration Dates Next Due Pfizer Covid-19 Vaccine 12+ Bivalent 07/08/2022 Social History Tobacco Use Types Packs/Day Years Used Date Smoking Tobacco: Never Assessed Sex and Gender Information Value Date Recorded Sex Assigned at Male 05/18/2022 10:18 AM EDT Legal Sex Male 10:18 AM EDT Gender Identity Male 05/18/2022 10:18 AM EDT Sexual Orientation Straight 05/18/2022 10 :18 AM EDT Plan of Treatment Health Maintenance Due Date Last Done Comments CT Colonography 1978 Colonoscopy 1978 Colorectal Cancer Screening 1978 Depression Screening 1978 FIT DNA/Cologuard 1978 FIT 1978 FOBT 1978 HIV Screening 1978 Lipid Panel 1978 SDOH Screening 1978 Sigmoidoscopy 1978 Alcohol/Substance Use Screening 1990 Tobacco Screening 1990 Family Planning (PISQ) 1993 Hepatitis C Screening 1996 DTaP/Tdap/Td Vaccines (1 - Tdap) 1997 Hepatitis B Vaccines (1 of 3 - 19+ 3-dose series) 1997 COVID-19 Vaccine (4 - 2023-2 5 season) 2024 07/08/2022, 07/07/2021, 06/16/2021 Influenza Vaccine (#1) 2024 10/17/2022 Zoster Vaccines (1 of 2) 2028 RSV Patients and Patients Aged 60 years or older (1 - 1-dose 75+ series) 2053 HIB Vaccines Aged Out No longer eligi [...] patient's age to complete this topic Meningococcal Vaccine Aged Out No yesika susan eligible based on patient's age to complete this topic Pneumococcal Vaccine: Pediatrics (0 to 5 Years) and At-Risk Patients (6 to 49) Years) Aged Out No longer eligible b ased on patient's age to complete this topic RSV under 20 months Aged Out No longe r eligible based on patient's age to complete this topic Rotavirus Vaccines Aged Out No longer eligible based on patient's age to [place] [address] [facility] [address] [place] [address] [place] [address] [place] [address]
--- OUTSIDE RECORDS SUMMARY | 2024-08-31 14:58 | XMS_ITS | Clinical Summary ---
Author Organization [facility] Address [address] [place] [address], [place] [address] Care Team Providers Care Ophthalmic Photographer Name Role Phone Christian Arevalo MD Primary Care Provider [phone] Allergies No known active allergies Medications valsartan (DIOVAN) 40 MG tablet Take 40 mg by mouth 1 (one) time each day 10/19/2022 Active Entresto 24-26 MG per tablet Take 1 tablet by mouth 12/03/2022 Active furosemide (LASIX) 20 MG tablet Take 20 mg by mouth 1 (one) time each day 11/05/2022 Active carvedilol (COREG) 3.125 MG tablet TAKE 1 TABLET BY MOUTH TWO TIMES A DAY 10/19/2022 Active Active Problems Problem Noted Date Diagnosed Date Underweight 12/08/2022 Stage 3b chronic kidney disease 12/08/2022 Congestive heart failure 12/08/2022 Immunizations Name Administration Dates Next Due Influenza, Quadrivalent, Preservative Free 10/17 Pfizer SARS-COV-2 07/08/2022,07/07/2021,06/16/20 21 SARS-CoV-2, Unspecified 07/08/2022 Family History Medical History Relation Comments Diabetes Father Diabetes Mother Relation Status Comments Father Alive Mother Alive Social History Tobacco Use Types Packs/Day Years Used Date Smoking Tobacco: Never Tobacco Cessation:Counseling Given: Not Answered Alcohol Use Standard Drinks/Week Comments Never 0 (1 standard drink = 0.6 oz pur e alcohol) Sex and Gender Information Value Date Recorded Sex Assigned at Not on file Legal Sex Male 9:33 AM EDT Gender Identity Not on file Sexual Orientation Not on file Last Filed Vital Signs Vital Sign Reading Time Taken Comments Blood Pressure 123/80 12/08/2022 1:17 PM EDT Pulse 113 12/08/2022 1:17 PM EDT Temperature - - Respiratory Rate - - Oxygen Saturation 97% 12/08/2022 1:17 PM EDT Inhaled Oxygen Concentration - - Weight 63.5 kg (140 lb) 12/08/2022 1:17 PM EDT Height - - Body Mass Index - - Plan of Treatment Health Maintenance Due Date Last Done Comments Pneumococcal Vaccine: Pediat rics (0 to 5 Years) and At-Risk Patients (6 to 64 Years) (1 of 2 - PCV) 1984 Hepatitis B Vaccine (1 of 3 - 19+ 3-dose series) 08/19 Influenza Vaccine (#1) 2024 10/17/2022 Insurance [place] Care Teams Ophthalmic Photographer Relationship Specialty Start Date End Date Christian Arevalo MD [address] [place] [address] [address] [place], [place] PCP - General Internal Medicine 10/19/22
--- OUTSIDE RECORDS SUMMARY | 2024-08-31 14:58 | XMS_ITS | Encounter Summary ---
Author Organization [employer] Address [address] [facility] [address] [place] [address] Care Team Providers Care Senior Counsel Commercial Name Role Phone Unavailable Primary Care Provider Unavailabl e Encounter Details Date Type Department Care Team (Late st Contact Info) Description 10/27/2022 Orders Only [facility] [address] [place], [place] [id number] Nish Delaney MD [address] [place] [address] Social History Tobacco Use Types Packs/Day Years Used Date Smoking Tobacco: Never Assessed Sex and Gender Information Value Date Recorded Sex Assigned at Male 05/18/2022 10:18 AM EDT Legal Sex Male 10:18 AM EDT Gender Identity Male 05/18/2022 10:18 AM EDT Sexual Orientation Straight 05/18/2022 10 :18 AM EDT documented as of this encounter Plan of Treatment Not on file documented as of this encounter Visit Diagnoses Not on filedocumented in this encounter
--- OUTSIDE RECORDS SUMMARY | 2024-08-31 14:59 | XMS_ITS | Encounter Summary ---
Author Organization [employer] Address [address] [place] [address] Care Team Providers Care Adjunct Nursing Faculty Name Role Phone Unavailable Primary Care Provider Unavailabl e Encounter Details Date Type Department Care Team (Late st Contact Info) Description 08/22/2024 Lab Requisition [facility] - Main Lab [address] [facility] [place] [address] Marisela Piedra MD [address] [place], [place] [phone] Opioid dependence, uncomplicated (CMS/HCC) Social History Tobacco Use Types Packs/Day Years Used Date Smoking Tobacco: Never Assessed Sex and Gender Information Value Date Recorded Sex Assigned at Not on file Legal Sex Male 5:41 AM EST Gender Identity Not on file Sexual Orientation Not on file documented as of this encounter Plan of Treatment Not on file documented as of this encounter Procedures Procedure Name Priority Date/Time Associated Diagnosis Comments HEPATITIS C ANTIBODY Routine 08/22/2024 8:20 AM [...] EST Opioid dependence, uncomplicated (CMS/HCC) HEPATITIS B CORE ANTIBODY, TOTAL Routine 08/22/2024 8:20 AM EST Opioid dependence, uncomplicated (CMS/HCC) HEPATITIS B SURFACE ANTIBODY Routine 08/22/2024 8:20 AM EST Opioid dependence, uncomplicated (CMS/HCC) COMPLETE BLOOD COUNT Routine 08/22/2024 8:20 AM EST Opioid dependence, uncomplicated (CMS/HCC) COMPREHENSIVE METABOLIC PANEL Routine 08/22/2024 8:20 AM EST Opioid dependence, uncomplicated (CMS/HCC) documented in this encounter Results * Hepatitis B core antibody, total (08/22/2024 8:20 AM EST) Pathologist [facility] [place] Hep B Core Total Ab Negative Negative LAB CHEMISTRY METHOD 08/22/2024 4:39 PM EST [facility] Blood Venous blood specimen / Unknown 08/22/2024 8:20 AM EST 08/22/2024 3:08 PM EST us Marisela Piedra MD LAB BLOOD ORDERABLES Fi nal Result Performing Organization Address [facility]/ZIP Co de Phone Number [facility] [address] [place] [address], [place] [phone] * Hepatitis C antibody (08/22/2024 8:20 AM EST) Pathologist [facility] [place] Hepatitis C Antibody Negative Negative LAB CHEMISTRY METHOD 08/22/2024 4:32 PM EST [facility] Blood Venous blood specimen / Unknown 08/22/2024 8:20 AM EST 08/22/2024 3:08 PM EST us Marisela Piedra MD LAB BLOOD ORDERABLES Fi nal Result [facility] [address] [place] [address], [place] [phone] * Hepatitis A antibody total with reflex IgM (08/22/2024 8:20 AM EST) Pathologist [facility] [place] Hep A Total Ab Negative Negative LAB CHEMISTRY METHOD 08/22/2024 4:38 PM EST [facility] Blood Venous blood specimen / Unknown 08/22/2024 8:20 AM EST 08/22/2024 3:08 PM EST [facility] - 08/22/2024 4:38 PM EST Over the counter supplements containing high doses of biotin may interfere with this assay. ??If interference is suspected, patients shoud be retested after refraining from biotin supplements for 72 hours. Marisela Piedra MD LAB BLOOD ORDERABLES Fi nal Result Performing Organization Address [facility] [[email or web address]] Co de Phone Number [facility] [address] [place] [address], * HIV 1,2 antibody, p24 antigen with reflex to differentiation (08/22/2024 8:20 AM EST) Pathologist [facility] [place] HIV Combo AB/AG Negative Negative LAB CHEMISTRY METHOD 08/22/2024 4:33 PM EST [facility] Blood Venous blood specimen / Unknown 08/22/2024 8:20 AM EST 08/22/2024 3:08 PM EST Narrative [facility] - 08/22/2024 4:33 PM [...] ORDERABLES Fi nal Result Performing Organization Address [facility]/ZIP Co de Phone Number [facility] [address] [place] [address], * Hepatitis B surface antigen with reflex to confirmation (08/22/2024 8:20 AM EST) Hepatitis B Surface Ag Negative Negative LAB CHEMISTRY METHOD 08/22/2024 4:04 PM EST [facility] Blood Venous blood specimen / Unknown 08/22/2024 8:20 AM EST 08/22/2024 3:08 PM EST [facility] - 08/22/2024 4:04 PM EST Over the counter supplements containing high doses of biotin may interfere with this assay. ??If interference is suspected, patients shoud be retested after refraining from biotin supplements for 72 hours. Marisela Piedra MD LAB BLOOD ORDERABLES Fi nal Result Performing Organization Address [facility] [[email or web address]] Co de Phone Number [facility] [address] [place] [address], * Hepatitis B surface antibody (08/22/2024 8:20 AM EST) Pathologist [facility] [place] Hepatitis B Surface Ab Negative Negative LAB CHEMISTRY METHOD 08/22/2024 3:53 PM EST [facility] Hepatitis B Surface Ab Quantitative <3.1 mIU/mL LAB CHEMISTRY METHOD 08/22/2024 3:53 PM EST [facility] Blood Venous blood specimen / Unknown 08/22/2024 8:20 AM EST 08/22/2024 3:08 PM EST Narrative [facility] - 08/22/2024 3:53 PM EST >=10 mIU/mL is considered to be consistent with immunity. Marisela Piedra MD LAB BLOOD ORDERABLES Fi nal Result Performing Organization Address [facility]/ZIP Co de Phone Number [facility] [address] [place] [address], * Treponema pallidum antibody with reflex to RPR and particle agglutination (08/22/2024 8:20 AM EST) Pathologist [facility] [place] T. Pallidum Antibodies Negative Negative LAB CHEMISTRY METHOD 08/22/2024 4:03 PM [facility] Blood Venous blood specimen / Unknown 08/22/2024 8:20 AM EST 08/22/2024 3:08 PM EST us Marisela Piedra MD LAB BLOOD ORDERABLES Fi nal Result [facility] [address] [place] [address], [place] [phone] * (ABNORMAL) Comprehensive metabolic panel (08/22/2024 8:20 AM EST) Pathologist [facility] [place] Sodium 137 133 - 145 mmol/L LAB CHEMISTRY METHOD 08/22/2024 3:45 PM [facility] Potassium 5.3 3.5 - 5.5 mmol/L LAB CHEMISTRY METHOD 08/22/2024 3:45 PM [facility] Chloride 105 96 - 110 mmol/L LAB CHEMISTRY METHOD 08/22/2024 3:45 PM [facility] CO2 29 21 - 32 mmol/L LAB CHEMISTRY METHOD 08/22/2024 3:45 PM [facility] Anion Gap 3 3 - 11 LAB CHEMISTRY METHOD 08/22/2024 3:45 PM [facility] Glucose 82 70 - 100 mg/dL LAB CHEMISTRY METHOD 08/22/2024 3:45 PM [facility] BUN 21 5 - 25 mg/dL LAB CHEMISTRY METHOD 08/22/2024 3:45 PM [facility] Creatinine 1.48(H) 0.70 - 1.30 mg/dL LAB CHEMISTRY METHOD 08/22/2024 3:45 PM EST [facility] eGFR 59(L) >=60 mL/min/1. 73m2 LAB CHEMISTRY METHOD 08/22/2024 3:45 PM EST [facility] Comment:Calculation based on the??Chronic Kidney Disease Epidemiology Collaboration (CKD-EPI) equation refit??without adjustment for race. BUN/Creatinine Ratio 14.2 LAB CHEMISTRY METHOD 08/22/2024 3:45 PM [facility] Calcium 9.7 8.5 - 10.5 mg/dL LAB CHEMISTRY METHOD 08/22/2024 3:45 PM [facility] AST (SGOT) 25 10 - 42 unit/L LAB CHEMISTRY METHOD 08/22/2024 3:45 PM [facility] ALT (SGPT) 28 10 - 60 unit/L LAB CHEMISTRY METHOD 08/22/2024 3:45 PM [facility] Alkaline Phosphatase 115 42 - 121 unit/L LAB CHEMISTRY METHOD 08/22/2024 3:45 PM [facility] Total Protein 7.2 6.0 - 8.0 g/dL LAB CHEMISTRY METHOD 08/22/2024 3:45 PM [facility] Albumin 3.6 3.2 - 5.0 g/dL LAB CHEMISTRY METHOD 08/22/2024 3:45 PM [facility] Total Bilirubin 0.5 0.0 - 1.4 mg/dL LAB CHEMISTRY METHOD 08/22/2024 3:45 PM [facility] Blood Venous blood specimen / Unknown 08/22/2024 8:20 AM EST 08/22/2024 3:08 PM EST us Marisela Piedra MD LAB BLOOD ORDERABLES Fi nal Result [facility] [address] [place] [address], * (ABNORMAL) Complete blood count (08/22/2024 8:20 AM EST) [facility] WBC 11.0(H) 4.8 - 10.8 K/mcL LAB HEMETOLOGY METHOD 08/22/2024 3:23 PM [facility] RBC 5.10 4.50 - 5.50 M/mcL LAB HEMETOLOGY METHOD 08/22/2024 3:23 PM [facility] Hemoglobin 14.3 13.5 - 17.5 g/dL LAB HEMETOLOGY METHOD 08/22/2024 3:23 PM [facility] Hematocrit 45.4 42.0 - 54.0 % LAB HEMETOLOGY METHOD 08/22/2024 3:23 PM [facility] MCV 88.5 79.0 - 98.0 FL LAB HEMETOLOGY METHOD 08/22/2024 3:23 PM [facility] MCH 27.9 27.0 - 32.0 pcg LAB HEMETOLOGY METHOD 08/22/2024 3:23 PM [facility] MCHC 31.5(L) 32.0 - 37.0 g/dL LAB HEMETOLOGY METHOD 08/22/2024 3:23 PM [facility] RDW 13.6 11.0 - 15.0 % LAB HEMETOLOGY METHOD 08/22/2024 3:23 PM [facility] Platelets 356 130 - 400 K/mcL LAB HEMETOLOGY METHOD 08/22/2024 3:23 PM [facility] MPV 10.7 7.0 - 11.0 FL LAB HEMETOLOGY METHOD 08/22/2024 3:23 PM [facility] NRBC 0.0 <1.0 % LAB HEMETOLOGY METHOD 08/22/2024 3:23 PM [facility] NRBC Absolute 0.00 <0.10 K/mcL LAB HEMETOLOGY METHOD 08/22/2024 3:23 PM [facility] Blood Venous blood specimen / Unknown 08/22/2024 8:20 AM EST 08/22/2024 3:08 PM EST us Marisela Piedra MD LAB BLOOD ORDERABLES Fi nal Result [facility] ([facility] [address] [facility] [address] [place] [address], documented in this encounter Visit Diagnoses Diagnosis Opioid dependence, uncomplicated (CMS/HCC) documented in this encounter
--- OUTSIDE RECORDS SUMMARY | 2024-08-31 15:27 | XMS_ITS | Clinical Summary ---
Author Organization [facility] Facility Address [address] [place] [address], [place] [address] Care Team Providers Care [employer] Name Role Phone Christian Arevalo MD Primary Care Provider [phone] Allergies No known active allergies Medications valsartan [...] [place] Care Teams [employer] Relationship Specialty Start Date End Date Christian Arevalo MD [address] [place] [address] [address] [place], [place] PCP - General Internal Medicine 10/19/22
--- OUTSIDE RECORDS SUMMARY | 2024-08-31 15:27 | XMS_ITS | Clinical Summary ---
Author Organization [address] [facility] Address [address] [place] [address] Phone Care Team Providers Care Mask Inspector Name Role Phone Unavailable Primary Care Provider Unavailabl e Encounters Date Type Department Care Team Description 08/22/2024 Lab Requisition [facility] - Main Lab [address] [facility] [place] [address] Marisela Piedra MD Opioid dependence, [...] C antibody (08/22/2024 8:20 AM EST) Pathologist [facility] Hepatitis C Antibody Negative Negative LAB CHEMISTRY METHOD 08/22/2024 4:32 PM EST [facility] Blood Venous blood specimen / Unknown 08/22/2024 8:20 AM EST 08/22/2024 3:08 PM EST Marisela Piedra MD LAB BLOOD ORDERABLES Fi nal Result Performing Organization Address [facility]/ZIP Co de Phone Number [facility] [address] [place] [address], [place] [phone] * HIV 1,2 antibody, p24 antigen with reflex to differentiation (08/22/2024 8:20 AM EST) [facility] HIV Combo AB/AG Negative Negative LAB CHEMISTRY METHOD 08/22/2024 4:33 PM EST [facility] Blood Venous blood specimen / Unknown 08/22/2024 8:20 AM EST 08/22/2024 3:08 PM EST Narrative [facility] - 08/22/2024 4:33 PM EST This [...] ORDERABLES Fi nal Result Performing Organization Address City/[facility]/ZIP Co de Phone Number [facility] [address] [place] [address], [place] [phone] * Hepatitis B surface antigen with reflex to confirmation (08/22/2024 8:20 AM EST) [facility] Hepatitis B Surface Ag Negative Negative LAB CHEMISTRY METHOD 08/22/2024 4:04 PM EST [facility] Blood Venous blood specimen / Unknown 08/22/2024 8:20 AM EST 08/22/2024 3:08 PM EST [facility] - 08/22/2024 4:04 PM EST Over the counter supplements containing high doses of biotin may interfere with this assay. ??If interference is suspected, patients shoud be retested after refraining from biotin supplements for 72 hours. Marisela Piedra MD LAB BLOOD ORDERABLES Fi nal Result Performing Organization Address [facility] Co de Phone Number [facility] [address] [place] [address], [place] [phone] * Treponema pallidum antibody with reflex to RPR and particle agglutination (08/22/2024 8:20 AM EST) T. Pallidum Antibodies Negative Negative LAB CHEMISTRY METHOD 08/22/2024 4:03 PM EST [facility] Blood Venous blood specimen / Unknown 08/22/2024 8:20 AM EST 08/22/2024 3:08 PM EST Marisela Piedra MD LAB BLOOD ORDERABLES Fi nal Result Performing Organization Address [facility] Co de Phone Number [facility] [address] [place] [address], [place] [phone] * Hepatitis A antibody total with reflex IgM (08/22/2024 8:20 AM EST) Hep A Total Ab Negative Negative LAB CHEMISTRY METHOD 08/22/2024 4:38 PM EST [facility] Blood Venous blood specimen / Unknown 08/22/2024 8:20 AM EST 08/22/2024 3:08 PM EST [facility] - 08/22/2024 4:38 PM EST Over the counter supplements containing high doses of biotin may interfere with this assay. ??If interference is suspected, patients shoud be retested after refraining from biotin supplements for 72 hours. us Marisela Piedra MD LAB BLOOD ORDERABLES Fi nal Result Performing Organization Address [facility]/ZIP Co de Phone Number [facility] [address] [place] [address], [place] [phone] * Hepatitis B core antibody, total (08/22/2024 8:20 AM EST) Pathologist [facility] Hep B Core Total Ab Negative Negative LAB CHEMISTRY METHOD 08/22/2024 4:39 PM EST [facility] Blood Venous blood specimen / Unknown 08/22/2024 8:20 AM EST 08/22/2024 3:08 PM EST Marisela Piedra MD LAB BLOOD ORDERABLES Fi nal Result Performing Organization Address [facility] de Phone Number [facility] [address] [place] [address], [place] [phone] * Hepatitis B surface antibody (08/22/2024 8:20 AM EST) [facility] Hepatitis B Surface Ab Negative Negative LAB CHEMISTRY METHOD 08/22/2024 3:53 PM EST [facility] Hepatitis B Surface Ab Quantitative <3.1 mIU/mL LAB CHEMISTRY METHOD 08/22/2024 3:53 PM EST [facility] Blood Venous blood specimen / Unknown 08/22/2024 8:20 AM EST 08/22/2024 3:08 PM EST Narrative [facility] - 08/22/2024 3:53 PM EST >=10 mIU/mL is considered to be consistent with immunity. us Marisela Piedra MD LAB BLOOD ORDERABLES Fi nal Result Performing Organization Address [facility] Co de Phone Number [facility] [address] [place] [address], * (ABNORMAL) Complete blood count (08/22/2024 8:20 AM EST) [facility] WBC 11.0(H) 4.8 - 10.8 K/mcL LAB HEMETOLOGY METHOD 08/22/2024 3:23 PM [facility] RBC 5.10 4.50 - 5.50 M/mcL LAB HEMETOLOGY METHOD 08/22/2024 3:23 PM [facility] Hemoglobin 14.3 13.5 - 17.5 g/dL LAB HEMETOLOGY METHOD 08/22/2024 3:23 PM [facility] Hematocrit 45.4 42.0 - 54.0 % LAB HEMETOLOGY METHOD 08/22/2024 3:23 PM [facility] MCV 88.5 79.0 - 98.0 FL LAB HEMETOLOGY METHOD 08/22/2024 3:23 PM [facility] MCH 27.9 27.0 - 32.0 pcg LAB HEMETOLOGY METHOD 08/22/2024 3:23 PM [facility] MCHC 31.5(L) 32.0 - 37.0 g/dL LAB HEMETOLOGY METHOD 08/22/2024 3:23 PM [facility] RDW 13.6 11.0 - 15.0 % LAB HEMETOLOGY METHOD 08/22/2024 3:23 PM [facility] Platelets 356 130 - 400 K/mcL LAB HEMETOLOGY METHOD 08/22/2024 3:23 PM [facility] MPV 10.7 7.0 - 11.0 FL LAB HEMETOLOGY METHOD 08/22/2024 3:23 PM [facility] NRBC 0.0 <1.0 % LAB HEMETOLOGY METHOD 08/22/2024 3:23 PM [facility] NRBC Absolute 0.00 <0.10 K/mcL LAB HEMETOLOGY METHOD 08/22/2024 3:23 PM EST [facility] Blood Venous blood specimen / Unknown 08/22/2024 8:20 AM EST 08/22/2024 3:08 PM EST us Marisela Piedra MD LAB BLOOD ORDERABLES Fi nal Result [facility] [address] [place] [address], [place] [phone] * (ABNORMAL) Comprehensive metabolic panel (08/22/2024 8:20 AM EST) Sodium 137 133 - 145 mmol/L LAB CHEMISTRY METHOD 08/22/2024 3:45 PM [facility] Potassium 5.3 3.5 - 5.5 mmol/L LAB CHEMISTRY METHOD 08/22/2024 3:45 PM [facility] Chloride 105 96 - 110 mmol/L LAB CHEMISTRY METHOD 08/22/2024 3:45 PM [facility] CO2 29 21 - 32 mmol/L LAB CHEMISTRY METHOD 08/22/2024 3:45 PM [facility] Anion Gap 3 3 - 11 LAB CHEMISTRY METHOD 08/22/2024 3:45 PM [facility] Glucose 82 70 - 100 mg/dL LAB CHEMISTRY METHOD 08/22/2024 3:45 PM [facility] BUN 21 5 - 25 mg/dL LAB CHEMISTRY METHOD 08/22/2024 3:45 PM [facility] Creatinine 1.48(H) 0.70 - 1.30 mg/dL LAB CHEMISTRY METHOD 08/22/2024 3:45 PM [facility] eGFR 59(L) >=60 mL/min/1. 73m2 LAB CHEMISTRY METHOD 08/22/2024 3:45 PM [facility] Comment:Calculation based on the??Chronic Kidney Disease Epidemiology Collaboration (CKD-EPI) equation refit??without adjustment for race. BUN/Creatinine Ratio 14.2 LAB CHEMISTRY METHOD 08/22/2024 3:45 PM [facility] Calcium 9.7 8.5 - 10.5 mg/dL LAB CHEMISTRY METHOD 08/22/2024 3:45 PM [facility] AST (SGOT) 25 10 - 42 unit/L LAB CHEMISTRY METHOD 08/22/2024 3:45 PM [facility] ALT (SGPT) 28 10 - 60 unit/L LAB CHEMISTRY METHOD 08/22/2024 3:45 PM [facility] Alkaline Phosphatase 115 42 - 121 unit/L LAB CHEMISTRY METHOD 08/22/2024 3:45 PM [facility] Total Protein 7.2 6.0 - 8.0 g/dL LAB CHEMISTRY METHOD 08/22/2024 3:45 PM [facility] Albumin 3.6 3.2 - 5.0 g/dL LAB CHEMISTRY METHOD 08/22/2024 3:45 PM [facility] Total Bilirubin 0.5 0.0 - 1.4 mg/dL LAB CHEMISTRY METHOD 08/22/2024 3:45 PM [facility] Blood Venous blood specimen / Unknown 08/22/2024 8:20 AM EST 08/22/2024 3:08 PM EST us Marisela Piedra MD LAB BLOOD ORDERABLES Fi nal Result [facility] [address] [place] [address], from Last 3 Months Insurance [address] [place] [address] [place]ICA[place]
--- OUTSIDE RECORDS SUMMARY | 2024-08-31 15:27 | XMS_ITS | Encounter Summary ---
Author Organization [employer] Address [address] [place] [address] Care Team Providers Care Cleaner And Dyer Name Role Phone Unavailable Primary Care Provider Unavailabl e Encounter Details Date Type Department Care Team (Late st Contact Info) Description 08/22/2024 Lab Requisition [facility] - Main Lab [address] [facility] [place] [address] Marisela Piedra MD [address] [place], [place] [id number] Opioid dependence, uncomplicated (CMS/HCC) Social History Tobacco [...] antibody, total (08/22/2024 8:20 AM EST) Pathologist [facility] Hep B Core Total Ab Negative Negative LAB CHEMISTRY METHOD 08/22/2024 4:[address] [facility] Blood Venous blood specimen / Unknown 08/22/2024 8:20 AM EST 08/22/2024 3:08 PM EST us Marisela Piedra MD LAB BLOOD ORDERABLES Fi nal Result Performing Organization Address [facility]/ZIP Co de Phone Number [facility] [address] [place] [address], [place] [phone] * Hepatitis C antibody (08/22/2024 8:20 AM EST) Pathologist [facility] Hepatitis C Antibody Negative Negative LAB CHEMISTRY METHOD 08/22/2024 4:[address] [facility] Blood Venous blood specimen / Unknown 08/22/2024 8:20 AM EST 08/22/2024 3:08 PM EST us Marisela Piedra MD LAB BLOOD ORDERABLES Fi nal Result [facility] [address] [place] [address], [place] [phone] * Hepatitis A antibody total with reflex IgM (08/22/2024 8:20 AM EST) Pathologist [facility] Hep A Total Ab Negative Negative LAB CHEMISTRY METHOD 08/22/2024 4:[address] [facility] Blood Venous blood specimen / Unknown 08/22/2024 8:20 AM EST 08/22/2024 3:08 PM EST [facility] - 08/22/2024 4:38 PM EST Over the counter supplements containing high doses of biotin may interfere with this assay. ??If interference is suspected, patients shoud be retested after refraining from biotin supplements for 72 hours. Marisela Piedra MD LAB BLOOD ORDERABLES Fi nal Result Performing Organization Address [facility] Co de Phone Number [facility] [address] [place] [address], * HIV 1,2 antibody, p24 antigen with reflex to differentiation (08/22/2024 8:20 AM EST) Pathologist [facility] HIV Combo AB/AG Negative Negative LAB CHEMISTRY METHOD 08/22/2024 4:[address] [facility] Blood Venous blood specimen / Unknown 08/22/2024 8:20 AM EST 08/22/2024 3:[address] [facility] - 08/22/2024 4:33 PM EST [...] ORDERABLES Fi nal Result Performing Organization Address [facility]/ZIP Co de Phone Number [facility] [address] [place] [address], * Hepatitis B surface antigen with reflex to confirmation (08/22/2024 8:20 AM EST) Hepatitis B Surface Ag Negative Negative LAB CHEMISTRY METHOD 08/22/2024 4:[address] [facility] Blood Venous blood specimen / Unknown 08/22/2024 8:20 AM EST 08/22/2024 3:08 PM EST [facility] - 08/22/2024 4:04 PM EST Over the counter supplements containing high doses of biotin may interfere with this assay. ??If interference is suspected, patients shoud be retested after refraining from biotin supplements for 72 hours. Marisela Piedra MD LAB BLOOD ORDERABLES Fi nal Result Performing Organization Address [facility] Co de Phone Number [facility] [address] [place] [address], * Hepatitis B surface antibody (08/22/2024 8:20 AM EST) Pathologist [facility] Hepatitis B Surface Ab Negative Negative LAB CHEMISTRY METHOD 08/22/2024 3:[address] [facility] Hepatitis B Surface Ab Quantitative <3.1 mIU/mL LAB CHEMISTRY METHOD 08/22/2024 3:[address] [facility] Blood Venous blood specimen / Unknown 08/22/2024 8:20 AM EST 08/22/2024 3:[address] [facility] - 08/22/2024 3:53 PM EST >=10 mIU/mL is considered to be consistent with immunity. Marisela Piedra MD LAB BLOOD ORDERABLES Fi nal Result Performing Organization Address [facility]/ZIP Co de Phone Number [facility] [address] [place] [address], * Treponema pallidum antibody with reflex to RPR and particle agglutination (08/22/2024 8:20 AM EST) Pathologist [facility] T. Pallidum Antibodies Negative Negative LAB CHEMISTRY METHOD 08/22/2024 4:03 PM [facility] Blood Venous blood specimen / Unknown 08/22/2024 8:20 AM EST 08/22/2024 3:08 PM EST us Marisela Piedra MD LAB BLOOD ORDERABLES Fi nal Result [facility] [address] [place] [address], [place] [phone] * (ABNORMAL) Comprehensive metabolic panel (08/22/2024 8:20 AM EST) Pathologist [facility] Sodium 137 133 - 145 mmol/L LAB CHEMISTRY METHOD 08/22/2024 3:45 PM [facility] Potassium 5.3 3.5 - 5.5 mmol/L LAB CHEMISTRY METHOD 08/22/2024 3:45 PM [facility] Chloride 105 96 - 110 mmol/L LAB CHEMISTRY METHOD 08/22/2024 3:45 PM [facility] CO2 29 21 - 32 mmol/L LAB CHEMISTRY METHOD 08/22/2024 3:45 PM [facility] Anion Gap 3 3 - 11 LAB CHEMISTRY METHOD 08/22/2024 3:45 PM [facility] Glucose 82 70 - 100 mg/dL LAB CHEMISTRY METHOD 08/22/2024 3:45 PM [facility] BUN 21 5 - 25 mg/dL LAB CHEMISTRY METHOD 08/22/2024 3:45 PM [facility] Creatinine 1.48(H) 0.70 - 1.30 mg/dL LAB CHEMISTRY METHOD 08/22/2024 3:45 PM EST [facility] eGFR 59(L) >=60 mL/min/1. 73m2 LAB CHEMISTRY METHOD 08/22/2024 3:[address] [facility] Comment:Calculation based on the??Chronic Kidney Disease Epidemiology Collaboration (CKD-EPI) equation refit??without adjustment for race. BUN/Creatinine Ratio 14.2 LAB CHEMISTRY METHOD 08/22/2024 3:45 PM [facility] Calcium 9.7 8.5 - 10.5 mg/dL LAB CHEMISTRY METHOD 08/22/2024 3:45 PM [facility] AST (SGOT) 25 10 - 42 unit/L LAB CHEMISTRY METHOD 08/22/2024 3:45 PM [facility] ALT (SGPT) 28 10 - 60 unit/L LAB CHEMISTRY METHOD 08/22/2024 3:45 PM [facility] Alkaline Phosphatase 115 42 - 121 unit/L LAB CHEMISTRY METHOD 08/22/2024 3:45 PM [facility] Total Protein 7.2 6.0 - 8.0 g/dL LAB CHEMISTRY METHOD 08/22/2024 3:45 PM [facility] Albumin 3.6 3.2 - 5.0 g/dL LAB CHEMISTRY METHOD 08/22/2024 3:45 PM [facility] Total Bilirubin 0.5 0.0 - 1.4 mg/dL LAB CHEMISTRY METHOD 08/22/2024 3:45 PM [facility] Blood Venous blood specimen / Unknown 08/22/2024 8:20 AM EST 08/22/2024 3:08 PM EST us Marisela Piedra MD LAB BLOOD ORDERABLES Fi nal Result [facility] [address] [place] [address], * (ABNORMAL) Complete blood count (08/22/2024 8:20 AM EST) [facility] WBC 11.0(H) 4.8 - 10.8 K/mcL LAB HEMETOLOGY METHOD 08/22/2024 3:23 PM [facility] RBC 5.10 4.50 - 5.50 M/mcL LAB HEMETOLOGY METHOD 08/22/2024 3:23 PM [facility] Hemoglobin 14.3 13.5 - 17.5 g/dL LAB HEMETOLOGY METHOD 08/22/2024 3:23 PM [facility] Hematocrit 45.4 42.0 - 54.0 % LAB HEMETOLOGY METHOD 08/22/2024 3:23 PM [facility] MCV 88.5 79.0 - 98.0 FL LAB HEMETOLOGY METHOD 08/22/2024 3:23 PM [facility] MCH 27.9 27.0 - 32.0 pcg LAB HEMETOLOGY METHOD 08/22/2024 3:23 PM [facility] MCHC 31.5(L) 32.0 - 37.0 g/dL LAB HEMETOLOGY METHOD 08/22/2024 3:23 PM [facility] RDW 13.6 11.0 - 15.0 % LAB HEMETOLOGY METHOD 08/22/2024 3:23 PM [facility] Platelets 356 130 - 400 K/mcL LAB HEMETOLOGY METHOD 08/22/2024 3:23 PM [facility] MPV 10.7 7.0 - 11.0 FL LAB HEMETOLOGY METHOD 08/22/2024 3:23 PM [facility] NRBC 0.0 <1.0 % LAB HEMETOLOGY METHOD 08/22/2024 3:23 PM [facility] NRBC Absolute 0.00 <0.10 K/mcL LAB HEMETOLOGY METHOD 08/22/2024 3:23 PM [facility] Blood Venous blood specimen / Unknown 08/22/2024 8:20 AM EST 08/22/2024 3:08 PM EST us Marisela Piedra MD LAB BLOOD ORDERABLES Fi nal Result [facility] [address] [place] [address], documented in this encounter Visit Diagnoses Diagnosis Opioid dependence, uncomplicated (CMS/HCC) documented in this encounter
--- OUTSIDE RECORDS SUMMARY | 2024-08-31 15:27 | XMS_ITS | Encounter Summary ---
Author Organization [employer] Address [address] [place] [address] Care Team Providers Care Machine Operations Supervisor Name Role Phone Unavailable Primary Care Provider Unavailabl e Encounter Details Date Type Department Care Team (Late st Contact Info) Description 10/27/2022 Orders Only [facility] [address] [place], [place] [phone] Nish Delaney MD [address] [place] [address] Social History Tobacco Use Types Packs/Day Years [...]
--- OUTSIDE RECORDS SUMMARY | 2024-08-31 15:27 | XMS_ITS | Clinical Summary ---
Author Organization [employer] Address [address] [place] [address] Care Team Providers Care Pull Over Name Role Phone Unavailable Primary Care Provider [...] patient's age to [place] [address] [facility] [address] [id number] [place] [address] [place] [address]
== END 2024-08-31 15:18 | disposition home or self-care (01) ==
LOC: HO.HCS 15:26
PROVIDERS: PCP Internal Medicine; Visit Provider Nurse Practitioner Family
DX: I42.8 Other cardiomyopathies (principal); F19.10 Other psychoactive substance abuse, uncomplicated
CPT/HCPCS: 99214

== ENCOUNTER → 2024-08-31 14:55 | Outpatient (BNVA) | payer MEDICAID, SELFPAY | PROVIDERS: PCP Internal Medicine; Visit Provider Nurse Practitioner Family | DX: I42.8 Other cardiomyopathies (principal); F19.10 Other psychoactive substance abuse, uncomplicated | CPT/HCPCS: 99212 ==